=== PATIENT | male | born 1955 | race Caucasian/White ===

== ENCOUNTER → 2017-02-01 | Outpatient (CLI) | payer MEDICARE ==
[~2017-02-01] MED LIST: ALDA50TA2 PO; DESI40OI2 TOPICAL; FERR325C PO; FERR325T PO; FURO20TA PO; LACT10SO PO; LACT10SO5 PO; MAGN400T3 PO; MIDO5TAB PO; MIRA0.25 PO; MIRA0.5T PO; NICO21DI2 T-DERMAL; OXYC1CAP PO; OYST250T4 PO; PANT40TA3 PO; POTA-243 PO; PROP10TA6 PO; WHEEMIS3; XIFA550T4 PO; ZOLO100T PO
[2017-02-01 10:03] LABS: AUTOMATED NEUTROPHIL # 2.6 TH/MM3 (1.8-7.7); BASOPHIL % 0.7 % (0.0-2.0); EOSINOPHIL # 0.1 TH/MM3 (0-0.4); EOSINOPHIL % 3.6 % (0.0-4.0); HEMATOCRIT 32.2 % (39.0-51.0); LYMPH % 14.4 % (9.0-44.0); LYMPHOCYTE # 0.5 TH/MM3 (1.0-4.8); MEAN CELL VOLUME 101.8 FL (80.0-100.0); MEAN CORPUSCULAR HEMOGLOBIN 34.9 PG (27.0-34.0); MEAN CORPUSCULAR HGB CONC 34.3 % (32.0-36.0); MONO % 6.3 % (0.0-8.0); PLATELET COUNT 80 TH/MM3 (150-450); RED BLOOD COUNT 3.16 MIL/MM3 (4.50-5.90); WHITE BLOOD COUNT 3.5 TH/MM3 (4.0-11.0)
[2017-02-01 10:08] LABS: HEMO FLAGS AUTO DIFF
[2017-02-01 10:12] LABS: BLOOD, URINE NEG (NEG); GLUCOSE,URINE NEG (NEG); KETONE, URINE NEG (NEG); NITRITE,URINE NEG (NEG); PH, URINE 5.5 (5.0-8.5); URINE COLOR YELLOW (YELLW/STRAW)
[2017-02-01 10:13] LABS: INTERNATIONAL NORMALIZED RATIO 1.1 RATIO; PROTHROMBIN TIME - PATIENT 11.7 SEC (9.8-11.6)
[2017-02-01 10:19] LABS: COMMENT (UR) CULT NOT INDICATED; CULTURE IF INDICATED CULT NOT INDICATED
[2017-02-01 10:29] LABS: WESTERGREN SEDIMENTATION RATE 24 mm/hr (0-20)
[2017-02-01 10:41] LABS: OVALOCYTES 2+ (NORMAL); PLATELET ESTIMATE SMEAR LOW (NORMAL); PLATELET MORPHOLOGY NORMAL (NORMAL); SCAN/DIFF AUTO DIFF CONFIRMED; TEARDROP RBCS 1+ (NORMAL)
[2017-02-01 11:28] LABS: ALT (GPT) 24 U/L (12-78); ANION GAP 9 MEQ/L (5-15); AST (GOT) 25 U/L (15-37); BICARBONATE 23.3 MEQ/L (21.0-32.0); BLOOD UREA NITROGEN 26 MG/DL (7-18); CHLORIDE 110 MEQ/L (98-107); GLOMERULAR FILTRATION RATE 50 ML/MIN (>89); GLUCOSE,FASTING 128 MG/DL (74-99); POTASSIUM 4.3 MEQ/L (3.5-5.1); SODIUM (NA) 142 MEQ/L (136-145)
[2017-02-01 11:30] LABS: ALKALINE PHOSPHATASE 74 U/L (45-117); TOTAL BILIRUBIN ADULT 1.1 MG/DL (0.2-1.0)
--- NOTE | 2017-02-01 11:40 | RADRPT ---
EXAM DATE/TIME: 02/01/2017 11:27 [facility] COMPARISON: CHEST PA & LAT, July 09, 2016, 15:50. INDICATIONS : Evaluate for pneumonia, pneumothorax, or communicable disease. Pre op for surgery on 02/17/2017. MEDICAL HISTORY : Hypertension. SURGICAL HISTORY : Spinal stimulator. ENCOUNTER: Initial ACUITY: 1 day PAIN SCORE: 0/10 LOCATION: Bilateral chest FINDINGS: PA and lateral views of the chest demonstrate the lungs to be symmetrically aerated without evidence of mass, infiltrate or effusion. The cardiomediastinal contours are unremarkable. Osseous structure s are intact. CONCLUSION: Normal examination. Epidural stimulator is in good position. Previous lumbar fixation. aMo Bowie MD on February 01, 2017 at 11:38 Board Certified Radiologist. This report was verified electronically.
--- NOTE | 2017-02-01 19:27 | EKG ---
Date Performed: 02/01/2017 Time Performed: 09:12:50 PTAGE: 61 years EKG: Sinus rhythm NORMAL ECG NO PREVIOUS TRACING DOCTOR: Vish Downey Interpretating Date/Time 02/01/2017 19:24:16
== END ==
LOC: CPRE 08:46
PROVIDERS: ATTEND Orthopaedic Surgery
DX: Z01.810 Encounter for preprocedural cardiovascular examination (principal); M79.609 Pain in unspecified limb; M25.50 Pain in unspecified joint; Z01.818 Encounter for other preprocedural examination; Z01.812 Encounter for preprocedural laboratory examination
CPT/HCPCS: 36415; 71020; 80053; 81001; 85025; 85610; 85652; 85730; 93005

== ENCOUNTER → 2017-06-04 | Outpatient (CLI) | payer MEDICARE ==
[~2017-06-04] MED LIST changes: -DESI40OI2 TOPICAL; -FERR325T PO; +FERR325T18 PO; -LACT10SO PO; -MIDO5TAB PO; -MIRA0.25 PO; -NICO21DI2 T-DERMAL; -POTA-243 PO; -WHEEMIS3; -XIFA550T4 PO
[2017-06-04 09:42] LABS: AUTOMATED NEUTROPHIL # 2.7 TH/MM3 (1.8-7.7); BASOPHIL % 0.8 % (0.0-2.0); EOSINOPHIL % 1.3 % (0.0-4.0); HEMATOCRIT 31.3 % (39.0-51.0); LYMPH % 11.2 % (9.0-44.0); LYMPHOCYTE # 0.4 TH/MM3 (1.0-4.8); MEAN CELL VOLUME 103.8 FL (80.0-100.0); MEAN CORPUSCULAR HEMOGLOBIN 35.8 PG (27.0-34.0); MEAN CORPUSCULAR HGB CONC 34.5 % (32.0-36.0); NEUT % 79.7 % (16.0-70.0); PLATELET COUNT 78 TH/MM3 (150-450); RED BLOOD COUNT 3.02 MIL/MM3 (4.50-5.90); RED CELL DISTRIBUTION WIDTH 14.4 % (11.6-17.2); WHITE BLOOD COUNT 3.4 TH/MM3 (4.0-11.0)
[2017-06-04 09:50] LABS: INTERNATIONAL NORMALIZED RATIO 1.1 RATIO; PROTHROMBIN TIME - PATIENT 11.9 SEC (9.8-11.6)
[2017-06-04 09:58] LABS: HEMO FLAGS AUTO DIFF
[2017-06-04 10:10] LABS: ANION GAP 6 MEQ/L (5-15); AST (GOT) 33 U/L (15-37); BICARBONATE 26.9 MEQ/L (21.0-32.0); BLOOD UREA NITROGEN 28 MG/DL (7-18); CHLORIDE 108 MEQ/L (98-107); GLOMERULAR FILTRATION RATE 56 ML/MIN (>89); GLUCOSE,FASTING 142 MG/DL (74-99); POTASSIUM 3.9 MEQ/L (3.5-5.1); SODIUM (NA) 141 MEQ/L (136-145)
[2017-06-04 10:11] LABS: ALT (GPT) 28 U/L (12-78)
[2017-06-04 10:13] LABS: ALKALINE PHOSPHATASE 80 U/L (45-117); TOTAL BILIRUBIN ADULT 1.1 MG/DL (0.2-1.0)
--- NOTE | 2017-06-04 10:14 | RADRPT ---
EXAM DATE/TIME: 06/04/2017 09:57 [facility] COMPARISON: CHEST PA & LAT, February 01, 2017, 11:27. INDICATIONS : Evaluate for pneumonia, pneumothorax and communicable disease pre op for total knee surgery. MEDICAL HISTORY : Hypertension. SURGICAL HISTORY : Spinal stimulator. ENCOUNTER: Initial ACUITY: 1 day PAIN SCORE: 0/10 LOCATION: Bilateral chest FINDINGS: The heart is normal in size. There mild chronic interstitial changes within the pulmonary parenchyma. The lungs are otherwise clear. The appearance of the parenchyma similar to previous exam. Note is made of degenerative changes in the thoracic spine a spinal stimulator. CONCLUSION: 1. Postsurgical changes in the spine. 2. Mild COPD changes. Edward Zaman MD on June 04, 2017 at 10:11 Board Certified Radiologist. This report was verified electronically.
[2017-06-04 10:19] LABS: BLOOD, URINE NEG (NEG); GLUCOSE,URINE NEG (NEG); KETONE, URINE NEG (NEG); NITRITE,URINE NEG (NEG); PH, URINE 6.5 (5.0-8.5); URINE COLOR YELLOW (YELLW/STRAW)
[2017-06-04 10:28] LABS: PLATELET ESTIMATE SMEAR LOW (NORMAL); PLATELET MORPHOLOGY NORMAL (NORMAL); SCAN/DIFF AUTO DIFF CONFIRMED
[2017-06-04 10:29] LABS: WESTERGREN SEDIMENTATION RATE 16 mm/hr (0-20)
[2017-06-04 10:35] LABS: BACTERIA, URINE OCC /hpf; COMMENT (UR) CULT NOT INDICATED; CULTURE IF INDICATED CULT NOT INDICATED; RBC, URINE 0-1 /hpf (0-3); SQUAMOUS EPITHELIAL CELL URINE 0-5 /hpf (0-5); WBC, URINE 0-2 /hpf (0-5)
--- NOTE | 2017-06-04 15:46 | EKG ---
Date Performed: 06/04/2017 Time Performed: 09:21:01 PTAGE: 61 years EKG: SINUS BRADYCARDIA BORDERLINE ECG Since PREVIOUS TRACING , no significant change noted PREVIOUS TRACIN02/01/2017 09.12 DOCTOR: Alexis Velasco Interpretating Date/Time 06/04/2017 15:45:06
== END ==
LOC: CPRE 08:54
PROVIDERS: ATTEND Orthopaedic Surgery
DX: Z01.810 Encounter for preprocedural cardiovascular examination (principal); Z01.811 Encounter for preprocedural respiratory examination; Z01.812 Encounter for preprocedural laboratory examination; Z96.60 Presence of unspecified orthopedic joint implant; M17.12 Unilateral primary osteoarthritis, left knee; M79.609 Pain in unspecified limb; M25.50 Pain in unspecified joint; R94.31 Abnormal electrocardiogram [ECG] [EKG]
CPT/HCPCS: 36415; 71020; 80053; 81001; 85025; 85610; 85652; 85730; 93005

== ENCOUNTER → 2017-06-22 | Outpatient (CLI) | payer MEDICARE ==
[~2017-06-22] MED LIST changes: -ALDA50TA2 PO; +ASPI-146 PO; +COMMODE 3-IN-11 MIS; +CPMMACHINE; +ENOX40IN SQ; -FERR325C PO; +HYDR-3583 PO; +WALKER WHEELS/F1 MIS
== END ==
LOC: CPRE 11:14
PROVIDERS: ATTEND Orthopaedic Surgery
DX: Z01.812 Encounter for preprocedural laboratory examination (principal); D69.1 Qualitative platelet defects; M17.12 Unilateral primary osteoarthritis, left knee; D61.818 Other pancytopenia
CPT/HCPCS: 36415; 86850; 86900; 86901

== ENCOUNTER 2017-06-23 06:45 | Inpatient (IN) | payer MEDICARE ==
[~2017-06-23] VITALS: Ht 188 cm; Wt 81.7 kg
[~2017-06-23 06:45] MED LIST changes: -ASPI-146 PO; -COMMODE 3-IN-11 MIS; -CPMMACHINE; -ENOX40IN SQ; -HYDR-3583 PO; -WALKER WHEELS/F1 MIS
[2017-06-23] MEDS ORDERED: METOPROLOL TARTRATE 25 MG TAB PO PRN (07:45)
[2017-06-23] MEDS ORDERED: VANCOMYCIN 1000 MG/NS 250 ML (for <70 kg) IV SCH ×2 (07:45)
[2017-06-23] MEDS ORDERED: CHLORHEXIDINE GLUCONATE 2 % 1 PACK (2 CLOTHS) TOPICAL PRN (07:45)
[2017-06-23] MEDS ORDERED: POVIDONE IODINE 7.5% SCRUB 118 ML BOTTLE TOPICAL SCH (07:45)
[2017-06-23] MEDS ORDERED: SODIUM CHLORID 0.9% 500 ML IV PRN (07:45)
[2017-06-23] MEDS ORDERED: ceFAZolin 2 GM PREMIX 50 ML IV SCH (07:45)
[2017-06-23] MEDS ORDERED: POVIDONE IODINE 5% (ANTISEPSIS KIT) 4 APPLICATIONS EACH NARE PRN (07:45)
[2017-06-23] MEDS ORDERED: LACTATED RINGER'S 1000 ML IV PRN (07:45)
[2017-06-23] MEDS ORDERED: DEXAMETHASONE SOD PHOS 20 MG/5 ML VIAL IV SCH (08:00)
[2017-06-23] MEDS ORDERED: ZOLO100T PO (08:58)
[2017-06-23] MEDS ORDERED: TRANEXAMIC ACID IV SCH ×2 (09:00→14:00)
[2017-06-23] MEDS ORDERED: ROPIVACAINE PERI-ARTICULAR INJECTION. P-ARTICULR SCH ×5 (09:00)
[2017-06-23] MEDS ORDERED: SODIUM CHLORIDE 0.9% IV SCH ×2 (09:00→14:00)
[2017-06-23 09:53] VITALS: BP 119/74; PULSE 72; RESP 18; TEMP 98.3; O2SAT 100
[2017-06-23 10:12] VITALS: BP 117/69; PULSE 70; RESP 18; TEMP 98.6; O2SAT 99
[2017-06-23 10:40] VITALS: BP 118/71; PULSE 77; RESP 18; TEMP 98.7; O2SAT 100
[2017-06-23] MEDS ORDERED: BUPIVACAINE LIPOSOME PF 1.3% 20 ML VIAL ONE (11:03)
[2017-06-23] MEDS ORDERED: GENTAMICIN SULFATE 80 MG/2 ML VIAL ONE (11:38)
--- NOTE | 2017-06-23 12:36 | HHI.DCPOC ---
Discharge Care Plan Diagnosis: (1) Primary localized osteoarthrosis, lower leg (2) Status post total knee replacement, left Your Health Problems Are: Difficulty with ADL Goals to Promote Your Health * To prevent worsening of your condition and complications * To maintain your health at the optimal level Directions to Meet Your Goals Take your medications as prescribed Follow your dietary instruction Follow activity as directed Keep your appointments as scheduled Take your immunizations and boosters as scheduled If your symptoms worsen call your PCP, if no PCP go to Urgent Care Center or Emergency Room Smoking is Dangerous to Your Health. Avoid second hand smoke Call the 24-hour hour crisis hotline for domestic abuse at Edward Salinas Jun 23, 2017 12:36
--- NOTE | 2017-06-23 12:37 | HHI.FF ---
Face to Face Verification Diagnosis: (1) Primary localized osteoarthrosis, lower leg (2) Status post total knee replacement, left Physical Therapy Gait training, Transfer training, bed to chair Knee: Total knee Left LE Weight Bearing: WB as tolerated Left LE Range of Motion: Active ROM Nursing Nursing: Duane ng Dressing Changes: Do not change dressing Additional Instructions First dressing change in office I have seen patient Reginald Parra on 06/23/17. My clinical findings support the need for the requested home health care services because: Limited ability to care for self High risk of falls I certify that my clinical findings support that this patient is homebound because: Post-op weakness Unsteady gait/balance Edward Salinas Jun 23, 2017 12:37
[2017-06-23] MEDS ORDERED: WALKER WHEELS/F1 MIS (12:39)
[2017-06-23] MEDS ORDERED: COMMODE 3-IN-11 MIS (12:39)
[2017-06-23] MEDS ORDERED: CPMMACHINE (12:39)
[2017-06-23] MEDS ORDERED: ENOX40IN SQ ×2 (13:56→14:00)
[2017-06-23] MEDS ORDERED: HYDR-3583 PO (13:56)
[2017-06-23] MEDS ORDERED: ASPI-146 PO (13:56)
--- NOTE | 2017-06-23 13:58 | PD.OP ---
cc: Aleksey Duarte MD Operative Report Date of Surgery: Jun 23, 2017 Preoperative Diagnosis: Left knee severe osteoarthritis Postoperative Diagnosis: Same Procedure: Left total knee arthroplasty Anesthesia: Adductor canal block and general Surgeon: Aleksey Duarte Protective Signal Operator(s): ARIANA Sánchez The surgical procedure was assisted by my Advanced Registered Nurse Practitioner. My DIRECTOR NEW PRODUCT presence was necessary throughout this case for the manipulation and positioning of the surgical extremity. My DIRECTOR NEW PRODUCT was assisting me throughout the duration of this procedure. The skill set of an Advance Registered Nurse Practitioner was medically necessary to complete this procedure. During the surgical case, the surgical scrub tech was working at the back table and the Advance Registered Nurse Practitioner was directly assisting me. Operation and Findings: IMPLANTS: DePuy Attune: Patella: size 38. Femur, posterior stabilized size 7. Tibia, rotating platform size 7. Tibial insert, rotating platform, posterior stabilized size 5 mm thickness. ESTIMATED BLOOD LOSS: 150 cc TOURNIQUET TIME: 37 minutes at 250 mmHg pressure. JUSTIFICATION FOR PROCEDURE: The patient has end-stage osteoarthritis to the knee. There is an attached conservative measures pathway form in the chart that describes the nonoperative measures that were undertaken prior to consideration of surgical management. The patient understood the risks and benefits of surgical management. See my office notes for further details PROCEDURE: This patient was transfused 1 unit of platelets prior to surgery. This was done per preoperative decision making. See the office notes for details. The patient was brought back to the operative theatre. Adequate anesthesia was obtained. The patient received intravenous vancomycin and Ancef. The lower extremity was prepped and draped in the usual sterile fashion.The leg was exsanguinated, the tourniquet was raised. A standard anterior incision was performed followed by medial parapatellar arthrotomy was performed. End-stage arthritis was identified. Osteotomy of the patella was performed. We drilled holes for the patella. We trialed the patella component. We placed an intramedullary guide into the distal femur. We ultimately resected 12 mm off of the distal femur in 5 degrees of valgus. The remnants of the ACL and PCL were resected. Osteotomy of the proximal tibia was performed, resecting 5 mm off of the medial side. This was done with 3 degrees of posterior slope using an extramedullary guide. The distal end of the guide was placed in the mid aspect of the ankle. The femur was sized, and four chamfer cuts were completed in 3 of external rotation. We then cut the central box in the distal femur to replace the PCL. We resected the remnants of the menisci and removed osteophytes off of the femur and tibia. We then trialed the knee. We punched the tibia for the keel, and then used standard technique to cement in components. Excess cement was removed. We trialed the knee again and the final polyethylene thickness was chosen to provide extension to 0 degrees, and flexion of 140 degrees to gravity. The ligaments were appropriately balanced. Lateral release was necessary to obtain excellent patellofemoral tracking. The tourniquet was released and adequate hemostasis was obtained. An intra- articular injection of a ropivacaine cocktail was injected. The posterior knee was inspected for excess cement, which was removed. The final polyethylene was put into position after thorough irrigation. We then closed deep fascia with a #2 Stratafix followed by skin with 2-0 Vicryl followed by gallito. Postop plan is to weight-bear as tolerated. DVT prophylaxis will be performed with SCDs, NAYAN duran, early mobilization, and Lovenox for 3 weeks. Aleksey Duarte MD Jun 23, 2017 13:58
[2017-06-23] MEDS ORDERED: ZOLPIDEM TARTRATE 5 MG TAB PO PRN (14:00)
[2017-06-23] MEDS ORDERED: Post-op Orders (for Pharmacy) MISC XX ONE (14:00)
[2017-06-23] MEDS ORDERED: ALUMINUM/MAGNESIUM/SIMETH 30 ML CUP PO PRN (14:00)
[2017-06-23] MEDS ORDERED: PRAMIPEXOLE DIHYDROCHLORIDE 0.25 MG TAB PO PRN (14:00)
[2017-06-23] MEDS ORDERED: ONDANSETRON HCL 4 MG/2 ML VIAL IVP PRN (14:00)
[2017-06-23] MEDS ORDERED: NALOXONE HCL 0.4 MG/ML AMP IV PUSH PRN (14:00)
[2017-06-23] MEDS ORDERED: MORPHINE SULFATE 4 MG/ML INJ IV PUSH PRN (14:00)
[2017-06-23] MEDS ORDERED: BISACODYL 10 MG SUPP RECTAL PRN (14:00)
[2017-06-23] MEDS ORDERED: diphenhydrAMINE HCL 50 MG/ML VIAL IV PUSH PRN (14:00)
[2017-06-23] MEDS ORDERED: ACETAMINOPHEN/HYDROcodone 325 MG/10 MG TAB PO PRN (14:00)
[2017-06-23] MEDS ORDERED: MAGNESIUM HYDROXIDE SUSP 30 ML CUP PO PRN (14:00)
[2017-06-23] MEDS ORDERED: DO NOT ADM ANY ANTICOAGULANT DRUGS PRN (14:24)
[2017-06-23] MEDS ORDERED: LACTULOSE SYRUP 20 GM/30 ML CUP PO PRN (14:45)
[2017-06-23] MEDS ORDERED: *morphine SULFATE 8 MG/ML PERIprocedure ONLY ONE (15:26)
[2017-06-23] MEDS: SODIUM CHLOR 0.9% 1000 ML INJ 1,000 ML IV SCH (15:45)
--- NOTE | 2017-06-23 16:24 | RADRPT ---
EXAM DATE/TIME: 06/23/2017 15:12 [facility] COMPARISON: No previous studies available for comparison. INDICATIONS : Post op left total knee surgery. MEDICAL HISTORY : None. SURGICAL HISTORY : None. ENCOUNTER: Initial ACUITY: 1 day PAIN SCORE: 0/10 LOCATION: Left knee. FINDINGS: Two view examination of the left knee demonstrates right total knee arthroplasty. All 3 components ar e appropriately positioned. No fracture. CONCLUSION: Appropriate postoperative appearance of the left knee status post total arthroplasty. Jose G Ge MD on June 23, 2017 at 16:22 Board Certified Radiologist. This report was verified electronically.
[2017-06-23 16:49] VITALS: BP 109/61; PULSE 63; RESP 18; TEMP 96.3; O2SAT 100
--- NOTE | 2017-06-23 16:49 | PD.CONS ---
[facility] By [facility] Du[facility] Reason for Consult medical management Primary Care Physician Prabhakar Ashley M.D. 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 He underwent APC (argon plasma coagulation) intervention by Dr Major. This was complicated by respiratory failure requiring mechanical vent. He was also found to have aspiration pneumonia for which he has completed antibiotics. Echo showed EF of 50-55% with normal systolic function but with some diastolic dysfunction. Underwent paracentesis on 06/26/16 with 1.8 L drained. Patient was in inpatient rehab as well. Patient is here for left hip surgery by Dr Duarte. 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 Jose G Ge MD Family History Father secondary to chronic kidney disease and lung disease Social History Reports quit smoking proximally 3 years ago prior to that smoked one half pack per day Reports he quit drinking approximately 3 years ago Physical Exam Vital Signs Vital Signs Date Time Temp Pulse Resp B/P (MAP) Pulse Ox O2 Delivery O2 Flow Rate FiO2 06/23/17 16:19 97.6 62 17 102/59 (73) 100 Nasal Cannula 2 06/23/17 16:00 59 18 100/58 (72) 100 Nasal Cannula 2 06/23/17 15:30 55 20 106/55 (72) 100 Nasal Cannula 2 06/23/17 15:15 65 19 112/63 (79) 96 Nasal Cannula 2 06/23/17 15:00 64 17 108/58 (75) 99 Nasal Cannula 2 06/23/17 14:45 60 16 99/55 (70) 100 Nasal Cannula 2 06/23/17 14:30 60 14 108/56 (73) 100 Nasal Cannula 2 06/23/17 14:24 98.5 65 19 121/57 (78) 99 Nasal Cannula 2 06/23/17 10:40 98.7 77 18 118/71 100 06/23/17 10:12 98.6 70 18 117/69 99 06/23/17 09:53 98.3 72 18 119/74 100 06/23/17 09:00 98.8 69 18 96/58 (71) 99 Physical Exam GENERAL: This is a well-nourished, well-developed patient, in no apparent distress. SKIN: No rashes, ecchymoses or lesions. Cool and dry. HEAD: Atraumatic. Normocephalic. No temporal or scalp tenderness. EYES: Pupils equal round and reactive. Extraocular motions intact. No scleral icterus. No injection or drainage. ENT: Nose without bleeding, purulent drainage or septal hematoma. Throat without erythema, tonsillar hypertrophy or exudate. Uvula midline. Airway patent. NECK: Trachea midline. No JVD or lymphadenopathy. Supple, nontender, no meningeal signs. CARDIOVASCULAR: Regular rate and rhythm without murmurs, gallops, or rubs. RESPIRATORY: Clear to auscultation. Breath sounds equal bilaterally. No wheezes , rales, or rhonchi. GASTROINTESTINAL: Abdomen soft, non-tender, nondistended. No hepato-splenomegaly , or palpable masses. No guarding. MUSCULOSKELETAL: S/P left knee surgery, dressing c/d/i. No edema noted. No calf tenderness. Negative Homans sign bilaterally. NEUROLOGICAL: Awake and alert. Cranial nerves II through XII intact. Motor and sensory grossly within normal limits. Five out of 5 muscle strength in all muscle groups. Normal speech. Imaging Last Impressions Knee X-Ray 06/23/17 [id number] Signed Impressions: Service Date/Time: Friday, June 23, 2017 15:12 - CONCLUSION: Appropriate postoperative appearance of the left knee status post total arthroplasty. Jose G Ge MD Assessment and Plan Assessment and Plan 60-year-old male patient recently hospitalized from 06/10/2016 to 07/02/2016 for hospital department secondary to GI bleed EGD revealed GAVE (gastric antral vascular ectasia). He underwent APC (argon plasma coagulation) intervention by Dr Major. complicated by respiratory failure requiring mechanical ventilation aspiration pneumonia completed antibiotics. We have been consulted for assistance with medical management of cirrhosis as well as multiple comorbidities. 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 He underwent APC (argon plasma coagulation) intervention by Dr Major. patient is here s/p left hip surgery by Dr Duarte Left knee osteoarthritis s/p left knee surgery by Dr Duarte. Continue management per surgeon Antiemetics as need, laxatives and stool softeners as need. Her H&H especially patient is with history of anemia Cirrhosis with portal hypertension- chronic Continue home meds Spirolactone and 50 mg daily in addition to Lasix 20 mg daily. Monitor kidney function closely Continue lactulose per patient takes lactulose 45 mls bid scheduled Monitor Chronic back pain- Continue meds Depression - Continue Sertraline Anemia monitor H/H appears stable at this time. DVT prophylaxis ambulation per surgeon, however patient is at high risk of bleeding Thank you for this consultation we'll follow along Discussed Condition With patient, nurse, family at bedside Problem Qualifiers (1) Primary localized osteoarthrosis, lower leg: Qualified Codes: M17.12 - Unilateral primary osteoarthritis, left knee Xiao Bates MD Jun 23, 2017 16:48
[2017-06-23] MEDS: FERROUS SULFATE 325 MG (65 MG ELEMENTAL IRON) TAB PO SCH (18:00)
[2017-06-23] MEDS: ACETAMINOPHEN/HYDROcodone 325 MG/10 MG TAB PO PRN (19:02)
[2017-06-23] MEDS: PROPRANOLOL HCL 10 MG TAB PO SCH (21:00)
[2017-06-23 21:51] VITALS: BP 97/51; PULSE 67; RESP 16; TEMP 98.2; O2SAT 100
[2017-06-24] VITALS (11 sets, daily range): BP systolic 95–133; BP diastolic 45–71; PULSE 59–96; RESP 17–20; TEMP 96–97.9; O2SAT 97–100
[2017-06-24] MEDS: LACTULOSE SYRUP 20 GM/30 ML CUP PO SCH ×3 (00:37→23:06)
[2017-06-24] MEDS: SODIUM CHLOR 0.9% 1000 ML INJ 1,000 ML IV SCH ×2 (00:46→19:52)
[2017-06-24] MEDS: ACETAMINOPHEN/HYDROcodone 325 MG/10 MG TAB PO PRN ×4 (03:36→23:06)
[2017-06-24] MEDS ORDERED: DEXAMETHASONE SOD PHOS 20 MG/5 ML VIAL IV ONE (07:45)
[2017-06-24] MEDS: PROPRANOLOL HCL 10 MG TAB PO SCH ×2 (09:00→23:06)
[2017-06-24] MEDS: FUROSEMIDE 20 MG TAB PO SCH (09:00)
[2017-06-24] MEDS: FERROUS SULFATE 325 MG (65 MG ELEMENTAL IRON) TAB PO SCH ×2 (09:07→16:11)
[2017-06-24] MEDS: SERTRALINE HCL 100 MG TAB PO SCH (09:08)
[2017-06-24] MEDS: PANTOPRAZOLE SOD 40 MG DELAYED RELEASE TAB PO SCH (09:08)
[2017-06-24 09:45] LABS: MEAN CELL VOLUME 102.7 FL (80.0-100.0); MEAN CORPUSCULAR HEMOGLOBIN 35.6 PG (27.0-34.0); MEAN CORPUSCULAR HGB CONC 34.7 % (32.0-36.0); PLATELET COUNT 73 TH/MM3 (150-450); RED BLOOD COUNT 1.91 MIL/MM3 (4.50-5.90); RED CELL DISTRIBUTION WIDTH 14.6 % (11.6-17.2); WHITE BLOOD COUNT 3.4 TH/MM3 (4.0-11.0)
[2017-06-24 09:59] LABS: REVIEW FLAG FINAL
[2017-06-24 10:00] LABS: HEMATOCRIT 19.6 % (39.0-51.0)
[2017-06-24] MEDS ORDERED: PNEUMOCOCCAL POLYVALENT INJ 25 MCG/0.5 ML SYR IM ONE (10:00)
--- NOTE | 2017-06-24 10:41 | HHI.PR ---
Subjective Remarks With postsurgical anemia . However patient not in distress his chair at this time. No overt bleeding. Denies any chest pain or shortness of breath, lightheadedness, palpitations however he feels very tired is alert and oriented. Family at bedside. Objective Vitals Vital Signs Date Time Temp Pulse Resp B/P (MAP) Pulse Ox O2 Delivery O2 Flow Rate FiO2 06/24/17 08:00 96.0 60 18 95/59 (71) 99 06/24/17 04:00 97.2 63 20 110/66 (81) 100 06/23/17 21:51 98.2 67 16 97/51 (66) 100 06/23/17 20:02 18 06/23/17 16:49 96.3 63 18 109/61 (77) 100 06/23/17 16:19 97.6 62 17 102/59 (73) 100 Nasal Cannula 2 06/23/17 16:00 59 18 100/58 (72) 100 Nasal Cannula 2 06/23/17 15:30 55 20 106/55 (72) 100 Nasal Cannula 2 06/23/17 15:15 65 19 112/63 (79) 96 Nasal Cannula 2 06/23/17 15:00 64 17 108/58 (75) 99 Nasal Cannula 2 06/23/17 14:45 60 16 99/55 (70) 100 Nasal Cannula 2 06/23/17 14:30 60 14 108/56 (73) 100 Nasal Cannula 2 06/23/17 14:24 98.5 65 19 121/57 (78) 99 Nasal Cannula 2 06/23/17 10:40 98.7 77 18 118/71 100 I/O 06/23/17 06/23/17 06/23/17 06/24/17 06/24/17 06/24/17 07:00 15:00 23:00 07:00 15:00 23:00 Intake Total 1374 ml 273 ml 400 ml 100 ml Output Total 150 ml 600 ml Balance 1224 ml 273 ml -200 ml 100 ml Intake Oral 300 ml IV Total 273 ml 100 ml 100 ml Platelets 374 ml Other 1000 ml Output Urine Total 600 ml Estimated Blood Loss 150 ml # Bowel Movements 0 Result Diagram: 06/24/17 0818 Imaging Last Impressions Knee X-Ray 06/23/17 1592 Signed Impressions: Service Date/Time: Friday, June 23, 2017 15:12 - CONCLUSION: Appropriate postoperative appearance of the left knee status post total arthroplasty. Jose G Ge MD Objective Remarks GENERAL: This is a well-nourished, well-developed patient, in no apparent distress. SKIN: No rashes, ecchymoses or lesions. Cool and dry. HEAD: Atraumatic. Normocephalic. No temporal or scalp tenderness. EYES: Pupils equal round and reactive. Extraocular motions intact. No scleral icterus. No injection or drainage. ENT: Nose without bleeding, purulent drainage or septal hematoma. Throat without erythema, tonsillar hypertrophy or exudate. Uvula midline. Airway patent. NECK: Trachea midline. No JVD or lymphadenopathy. Supple, nontender, no meningeal signs. CARDIOVASCULAR: Regular rate and rhythm without murmurs, gallops, or rubs. RESPIRATORY: Clear to auscultation. Breath sounds equal bilaterally. No wheezes , rales, or rhonchi. GASTROINTESTINAL: Abdomen soft, non-tender, nondistended. No hepato-splenomegaly , or palpable masses. No guarding. MUSCULOSKELETAL: S/P left knee surgery, dressing c/d/i. No edema noted. No calf tenderness. Negative Homans sign bilaterally. NEUROLOGICAL: Awake and alert. Cranial nerves II through XII intact. Motor and sensory grossly within normal limits. Five out of 5 muscle strength in all muscle groups. Normal speech. A/P Problem List: (1) Status post total knee replacement, left ICD Code: Z96.652 - Presence of left artificial knee joint (2) Primary localized osteoarthrosis, lower leg ICD Code: M17.10 - Unilateral primary osteoarthritis, unspecified knee (3) HTN (hypertension) ICD Code: I10 - Essential (primary) hypertension Status: Chronic (4) Thrombocytopenia ICD Code: D69.6 - Thrombocytopenia, unspecified Status: Acute (5) Restless leg syndrome ICD Code: G25.81 - Restless legs syndrome Status: Chronic (6) Liver cirrhosis ICD Code: K74.60 - Unspecified cirrhosis of liver Status: Chronic (7) Depression ICD Code: F32.9 - Major depressive disorder, single episode, unspecified Status: Chronic Assessment and Plan 60-year-old male patient recently hospitalized from 06/10/2016 to 07/02/2016 for hospital department secondary to GI bleed EGD revealed GAVE (gastric antral vascular ectasia). He underwent APC (argon plasma coagulation) intervention by Dr Major. complicated by respiratory failure requiring mechanical ventilation aspiration pneumonia completed antibiotics. We have been consulted for assistance with medical management of cirrhosis as well as multiple comorbidities. 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 He underwent APC (argon plasma coagulation) intervention by Dr Major. patient is here s/p left hip surgery by Dr Duarte Left knee osteoarthritis s/p left knee surgery by Dr Duarte. Continue management per surgeon Antiemetics as need, laxatives and stool softeners as need. Anemia with drop in HGB at 6.9 after surgery. Type and screen Transfuse 2U PRBC today. Pretreat. Received 1 U PLT as PLT at 70. Consult hematology oncology Thrombocytopenia. PLT 70. Monitor received 1U PLT. Cirrhosis with portal hypertension- chronic Continue home meds Spirolactone and 50 mg daily in addition to Lasix 20 mg daily. Monitor kidney function closely Continue lactulose per patient takes lactulose 45 mls bid scheduled Monitor Chronic back pain- Continue meds Depression - Continue Sertraline DVT prophylaxis ambulation per surgeon, however patient is at high risk of bleeding Thank you for this consultation we'll follow along Discussed Condition With patient, nurse, family at bedside Problem Qualifiers (1) Primary localized osteoarthrosis, lower leg: Qualified Codes: M17.12 - Unilateral primary osteoarthritis, left knee Xiao Bates MD Jun 24, 2017 10:41
[2017-06-24] MEDS ORDERED: ACETAMINOPHEN 325 MG TAB PO PRN (10:45)
[2017-06-24] MEDS ORDERED: diphenhydrAMINE HCL 25 MG CAP PO PRN (10:45)
[2017-06-24] MEDS ORDERED: FUROSEMIDE 20 MG/2 ML VIAL IV PUSH ONE (10:45)
[2017-06-24] MEDS ORDERED: SODIUM CHLOR 0.9% 250 ML INJ 250 ML IV ONE (10:45)
--- NOTE | 2017-06-24 12:34 | PD.ORT.PN ---
Subjective Post Op Day #: 1 Subjective Remarks Patient is OOB in chair with minimal pain to the left knee. Patient reports wanting to go home with home health today. Patient has been ambulatory. Objective Vitals Vital Signs Date Time Temp Pulse Resp B/P (MAP) Pulse Ox O2 Delivery O2 Flow Rate FiO2 06/24/17 08:00 96.0 60 18 95/59 (71) 99 06/24/17 04:00 97.2 63 20 110/66 (81) 100 06/23/17 21:51 98.2 67 16 97/51 (66) 100 06/23/17 20:02 18 06/23/17 16:49 96.3 63 18 109/61 (77) 100 06/23/17 16:19 97.6 62 17 102/59 (73) 100 Nasal Cannula 2 06/23/17 16:00 59 18 100/58 (72) 100 Nasal Cannula 2 06/23/17 15:30 55 20 106/55 (72) 100 Nasal Cannula 2 06/23/17 15:15 65 19 112/63 (79) 96 Nasal Cannula 2 06/23/17 15:00 64 17 108/58 (75) 99 Nasal Cannula 2 06/23/17 14:45 60 16 99/55 (70) 100 Nasal Cannula 2 06/23/17 14:30 60 14 108/56 (73) 100 Nasal Cannula 2 06/23/17 14:24 98.5 65 19 121/57 (78) 99 Nasal Cannula 2 I/O 06/23/17 06/23/17 06/23/17 06/24/17 06/24/17 06/24/17 07:00 15:00 23:00 07:00 15:00 23:00 Intake Total 1374 ml 273 ml 400 ml 100 ml Output Total 150 ml 600 ml Balance 1224 ml 273 ml -200 ml 100 ml Intake Oral 300 ml IV Total 273 ml 100 ml 100 ml Platelets 374 ml Other 1000 ml Output Urine Total 600 ml Estimated Blood Loss 150 ml # Bowel Movements 0 Result Diagram: 06/24/17 0818 Imaging Last 24 hours Impressions Knee X-Ray 06/23/17 3442 Signed Impressions: Service Date/Time: Friday, June 23, 2017 15:12 - CONCLUSION: Appropriate postoperative appearance of the left knee status post total arthroplasty. Jose G Ge MD Procedures Left TKA Objective Remarks The patient's dressing is C/D/I. EHL/TA/G intact. 2+ pedal pulse. Calf is soft and nontender. + SILT. Assessment & Plan Ortho Post Op Day #: 1 Problem List: Assessment and Plan POD #1: Left TKA 1. Lovenox for 3 weeks for DVT prophylaxis 2. WBAT LLE 3. Ice to the left knee PRN 4. Stable for discharge home with home health today after transfusion of PRBCs to address anemia. 5. F/U with Dr. Duarte or Jose G LANE in the office as previously scheduled. 6. PRBCs ordered to address anemia. Edward Salinas Jun 24, 2017 12:34
[2017-06-24] MEDS: ENOXAPARIN SODIUM 40 MG/0.4 ML SYRINGE SQ SCH (13:20)
[2017-06-24] MEDS: MULTIVITAMINS/MINERALS THERAPEUTIC TAB PO SCH (23:07)
[2017-06-24] MEDS: DOCUSATE SODIUM 100 MG CAP PO SCH (23:07)
[2017-06-25] VITALS: BP 110/56; PULSE 78; RESP 18; TEMP 98.3; O2SAT 100
[2017-06-25] MEDS: SODIUM CHLOR 0.9% 1000 ML INJ 1,000 ML IV SCH (04:52)
[2017-06-25 08:00] VITALS: BP 109/58; PULSE 70; RESP 18; TEMP 97.3; O2SAT 98
--- NOTE | 2017-06-25 08:04 | MB ---
cc: IRENE JOHNS M.D. DATE OF CONSULTATION 06/25/[address] Bates REASON FOR CONSULTATION Hematology consult to render opinion regarding patient with pancytopenia. HISTORY OF PRESENT ILLNESS The patient is a 61-year-old male with a history of cirrhosis and splenomegaly with pancytopenia admitted for a left total knee arthroplasty. He has had a history of pancytopenia. His preop CBC showed a hemoglobin of 9.1 and his platelet count has been fluctuating between 70,000-90,000. He was given a unit of platelets prior to surgery. He had an uneventful surgery. ESTIMATED BLOOD LOSS 150 mL After surgery, the hemoglobin level was noted to be 6.8. He received two units of packed red blood cell transfusion yesterday. He denies any bleeding from his knee. He denies any chest pain or palpitation. He has no shortness of breath or cough. He denies any nausea or vomiting. Denies any abdominal pain. PAST MEDICAL HISTORY 1. Cirrhosis alcohol-induced 2. He has portal hypertension with a history of GI bleed. 3. Ascites 4. Splenomegaly 5. Depression 6. Hypertension 7. Chronic pain 8. Peripheral neuropathy 9. Restless leg syndrome 10. Cholelithiasis 11. Degenerative disk disease 12. GAVE with history of GI bleed. 13. History of aspiration pneumonia with respiratory failure. PAST SURGICAL HISTORY 1. Back surgery 2. Neck surgery 3. Upper endoscopy 4. Paracenteses June 2016. 5. Eyes surgery 6. Spinal stimulator implant. FAMILY HISTORY Father of chronic kidney disease. No hematology disorder in the family. SOCIAL HISTORY Quit tobacco three years ago. Used to smoke about one and a half packs a day for many years, quit alcohol about three years ago. ALLERGIES No known drug allergies. CURRENT MEDICATIONS 1. Multivitamin 2. Colace 3. Lovenox 4. Lasix 5. Protonix 6. Zoloft 7. Propranolol 8. Lactulose 9. Ferrous sulfate REVIEW OF SYSTEMS CONSTITUTION: Negative. EYES: Negative. ENT: Negative. CARDIOVASCULAR: Denies chest pressure or palpitations. RESPIRATORY: Denies shortness of breath or cough. GI: Denies any nausea or vomiting. Denies any melena or hematochezia. Denies abdominal pain. : No dysuria or hematuria. MUSCULOSKELETAL: As above. HEMATOLOGY: As above. ENDOCRINE: Negative. HEMATOLOGY: Negative. PSYCHIATRIC: Negative. NEUROLOGIC: Negative. PHYSICAL EXAMINATION VITAL SIGNS: Temperature 98.3, blood pressure 110/56, O2 saturation 100% on room air. GENERAL: He is alert and oriented x3 in no acute distress. He is in a good mood. HEENT: Atraumatic, normocephalic. Pupils equal, round and reactive to light. Extraocular muscles intact. No scleral icterus. Oropharynx, dry mucosa. No lesion, thrush or mucositis. NECK: No thyromegaly. No palpable masses. LYMPHATICS: No palpable cervical, clavicular, axillary or inguinal lymph nodes. CARDIOVASCULAR: Regular S1-S2. No murmur. LUNGS: Clear to auscultation bilaterally. No wheezing or rhonchi. ABDOMEN: Soft, nontender. I could not palpate the liver or spleen. EXTREMITIES: No cyanosis. No clubbing. Left lower extremity is in a brace, dressing is dry. Trace ankle edema. SKIN: No rash or petechiae. NEUROLOGIC: Exam nonfocal. LABORATORY DATA WBC 3.4, hemoglobin 6.8, platelet count 73,000 on June 24, 2017. ASSESSMENT 1. Pancytopenia due to underlying cirrhosis and splenomegaly. His previous ultrasound showed splenomegaly due to cirrhosis. He has baseline pancytopenia. His platelet count fluctuated between 70,000-90,000. His preop hemoglobin was 9.1. His white blood cell count was slightly low. He had a left total knee arthroplasty on June 23. Estimated blood loss 150 cc. After the surgery, hemoglobin was noted to be 6.8. He received two units of packed red blood cells yesterday. He denies any symptoms. Repeat CBC pending. He has no evidence of active bleeding at this time. He is also on an iron supplement which he will continue. Once his hemoglobin is above 8 he can be discharged from the hematology standpoint. He will follow up as an outpatient. 2. Cirrhosis due to alcohol. He has portal hypertension. He also has a history of ascites and splenomegaly. He has no symptoms at this time. 3. History of GI bleed. Upper endoscopy showed GAVE he had an Argon treatment four times, the last one about three months ago. He has no evidence of active GI bleed at this time. 4. Chronic back pain due degenerative disc disease. 5. Hypertension 6. Peripheral neuropathy RECOMMENDATIONS 1. Agree with blood transfusion to keep hemoglobin above 8. 2. If his hemoglobin is above 8, can be discharged from hematology standpoint if cleared by orthopedic surgery. 3. Continue prophylactic anticoagulation per orthopedic recommendation. Thank you Dr. Bates and Dr. Duarte for asking me to see this patient. MD TANIA Mortensen/BLAIRE /7:21 AM /7:45 AM MANI
[2017-06-25 08:27] LABS: HEMATOCRIT 23.5 % (39.0-51.0); MEAN CELL VOLUME 97.7 FL (80.0-100.0); MEAN CORPUSCULAR HEMOGLOBIN 33.5 PG (27.0-34.0); MEAN CORPUSCULAR HGB CONC 34.3 % (32.0-36.0); PLATELET COUNT 76 TH/MM3 (150-450); RED CELL DISTRIBUTION WIDTH 18.7 % (11.6-17.2); WHITE BLOOD COUNT 3.7 TH/MM3 (4.0-11.0)
[2017-06-25 08:38] LABS: REVIEW FLAG FINAL
[2017-06-25 08:54] LABS: BICARBONATE 24.9 MEQ/L (21.0-32.0); POTASSIUM 3.6 MEQ/L (3.5-5.1)
[2017-06-25] MEDS: FUROSEMIDE 20 MG TAB PO SCH (09:00)
[2017-06-25] MEDS: PROPRANOLOL HCL 10 MG TAB PO SCH (09:00)
--- NOTE | 2017-06-25 09:01 | HHI.PR ---
Subjective Remarks Feels better today . No chest pain , sob, n/v/d/c. No overt bleeding. Feels comfortable to go home. HGB is 8.1 stable after transfusion. Pain is controlled by meds. Objective Vitals Vital Signs Date Time Temp Pulse Resp B/P (MAP) Pulse Ox O2 Delivery O2 Flow Rate FiO2 06/25/17 00:24 17 06/25/17 00:00 98.3 78 18 110/56 (74) 100 06/24/17 23:44 Room Air 06/24/17 21:37 97.9 80 17 112/71 100 06/24/17 21:12 21 06/24/17 20:00 97.8 96 17 113/60 (77) 99 06/24/17 19:02 97.8 96 17 113/60 99 06/24/17 18:47 97.3 65 18 100/55 100 06/24/17 15:45 97.1 68 18 133/66 99 06/24/17 14:44 98 Nasal Cannula 2.00 06/24/17 13:04 96.9 59 18 111/54 98 06/24/17 12:45 96.9 65 18 98/45 97 06/24/17 12:00 96.9 65 18 98/45 (62) 98 I/O 06/24/17 06/24/17 06/24/17 06/25/17 06/25/17 06/25/17 07:00 15:00 23:00 07:00 15:00 23:00 Intake Total 400 ml 1065 ml 1885 ml 360 ml Output Total 600 ml 400 ml 700 ml Balance -200 ml 1065 ml 1485 ml -340 ml Intake Oral 300 ml 960 ml 720 ml 360 ml IV Total 100 ml 100 ml Packed Cells 1150 ml Blood Product IV Normal Saline Flush 5 ml 15 ml Output Urine Total 600 ml 400 ml 700 ml Stool Total 0 ml # Voids 4 # Bowel Movements 0 0 Result Diagram: 06/25/17 0807 06/25/17 08 Imaging Last Impressions Knee X-Ray 06/23/17 2162 Signed Impressions: Service Date/Time: Friday, June 23, 2017 15:12 - CONCLUSION: Appropriate postoperative appearance of the left knee status post total arthroplasty. Jose G Ge MD Objective Remarks GENERAL: This is a well-nourished, well-developed patient, in no apparent distress. SKIN: No rashes, ecchymoses or lesions. Cool and dry. HEAD: Atraumatic. Normocephalic. No temporal or scalp tenderness. EYES: Pupils equal round and reactive. Extraocular motions intact. No scleral icterus. No injection or drainage. ENT: Nose without bleeding, purulent drainage or septal hematoma. Throat without erythema, tonsillar hypertrophy or exudate. Uvula midline. Airway patent. NECK: Trachea midline. No JVD or lymphadenopathy. Supple, nontender, no meningeal signs. CARDIOVASCULAR: Regular rate and rhythm without murmurs, gallops, or rubs. RESPIRATORY: Clear to auscultation. Breath sounds equal bilaterally. No wheezes , rales, or rhonchi. GASTROINTESTINAL: Abdomen soft, non-tender, nondistended. No hepato-splenomegaly , or palpable masses. No guarding. MUSCULOSKELETAL: S/P left knee surgery, dressing c/d/i. No edema noted. No calf tenderness. Negative Homans sign bilaterally. NEUROLOGICAL: Awake and alert. Cranial nerves II through XII intact. Motor and sensory grossly within normal limits. Five out of 5 muscle strength in all muscle groups. Normal speech. A/P Problem List: (1) Status post total knee replacement, left ICD Code: Z96.652 - Presence of left artificial knee joint (2) Primary localized osteoarthrosis, lower leg ICD Code: M17.10 - Unilateral primary osteoarthritis, unspecified knee (3) HTN (hypertension) ICD Code: I10 - Essential (primary) hypertension Status: Chronic (4) Thrombocytopenia ICD Code: D69.6 - Thrombocytopenia, unspecified Status: Acute (5) Restless leg syndrome ICD Code: G25.81 - Restless legs syndrome Status: Chronic (6) Liver cirrhosis ICD Code: K74.60 - Unspecified cirrhosis of liver Status: Chronic (7) Depression ICD Code: F32.9 - Major depressive disorder, single episode, unspecified Status: Chronic Assessment and Plan 60-year-old male patient recently hospitalized from 06/10/2016 to 07/02/2016 for hospital department secondary to GI bleed EGD revealed GAVE (gastric antral vascular ectasia). He underwent APC (argon plasma coagulation) intervention by Dr Major. complicated by respiratory failure requiring mechanical ventilation aspiration pneumonia completed antibiotics. We have been consulted for assistance with medical management of cirrhosis as well as multiple comorbidities. 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 He underwent APC (argon plasma coagulation) intervention by Dr Major. patient is here s/p left hip surgery by Dr Duarte Left knee osteoarthritis s/p left knee surgery by Dr Duarte. Continue management per surgeon Antiemetics as need, laxatives and stool softeners as need. Anemia with drop in HGB at 6.9 after surgery. Type and screen Transfuse 2U PRBC today. Pretreated. Received 1 U PLT as PLT at 70. Repeat HGB after blood transfusion stable at 8.1. Consult hematology oncology, appreciate recommendations. OK to DC patient if HGB> 8 Thrombocytopenia. PLT 70. Monitor received 1U PLT. Cirrhosis with portal hypertension- chronic Continue home meds Spirolactone and 50 mg daily in addition to Lasix 20 mg daily. Monitor kidney function closely Continue lactulose per patient takes lactulose 45 mls bid scheduled Monitor Chronic back pain- Continue meds Depression - Continue Sertraline DVT prophylaxis ambulation per surgeon, however patient is at high risk of bleeding Thank you for this consultation we'll follow along Discussed Condition With patient, nurse Stable medically can be DC to f/u as OP with PCP and consultants Problem Qualifiers (1) Primary localized osteoarthrosis, lower leg: Qualified Codes: M17.12 - Unilateral primary osteoarthritis, left knee Xiao Bates MD Jun 25, 2017 09:01
--- NOTE | 2017-06-25 10:27 | PQ ---
Physician Query Response Document PATIENT: GOYO STONE : 1955 ADMIT DATE: 06/23/2017 6:45 AM DISCH DATE: RESPONDING PROVIDER #: [email or web address] QUERY TEXT: Anemia Type Anemia is documented in the Medical Record. PLEASE SPECIFY THE CAUSE AND ACUITY ( acute vs chronic) Such as: -- Due to acute blood loss -- Due to chronic blood loss -- Due to iron deficiency -- Due to postoperative blood loss -- Due to chronic disease -- Other, please specify The patient's Clinical Indicators include: 06/23/17 Preoperative Diagnosis: Left knee severe osteoarthritis - NOW S/P Procedure: Left total knee arthroplasty PER 06/24/17 HOSPITALIST PROGRESS NOTE - With postsurgical anemia ASSESSMENT AND PLAN STATES: Anemia with drop in HGB at 6.9 after surgery. Type and screen Transfuse 2U PRBC today. Pretreat. Received 1 U PLT as PLT at 70. Consult hematology oncology Query created by: Karen Kaufman on 06/24/2017 1:40 PM RESPONSE TEXT: Patient with macrocytic anemia alcohol related and also with postsurgical anemia. Received 2 U PRBC. Patient also with thrombocytopenia and h/o hep C , liver failure , alcoholism contributing factors Electronically signed by: Xiao Bates MD 06/25/2017 10:23 AM
[2017-06-25] MEDS: LACTULOSE SYRUP 20 GM/30 ML CUP PO SCH (10:55)
[2017-06-25] MEDS: DOCUSATE SODIUM 100 MG CAP PO SCH (10:55)
[2017-06-25] MEDS: ACETAMINOPHEN/HYDROcodone 325 MG/10 MG TAB PO PRN (10:55)
[2017-06-25] MEDS: MULTIVITAMINS/MINERALS THERAPEUTIC TAB PO SCH (10:55)
[2017-06-25] MEDS: FERROUS SULFATE 325 MG (65 MG ELEMENTAL IRON) TAB PO SCH (10:55)
[2017-06-25] MEDS: SERTRALINE HCL 100 MG TAB PO SCH (10:55)
[2017-06-25] MEDS: PANTOPRAZOLE SOD 40 MG DELAYED RELEASE TAB PO SCH (10:56)
[2017-06-25 12:00] VITALS: BP 135/61; PULSE 67; RESP 18; TEMP 98.3; O2SAT 99
[2017-06-25] MEDS: ENOXAPARIN SODIUM 40 MG/0.4 ML SYRINGE SQ SCH (12:57)
--- NOTE | 2017-06-25 23:17 | HHI.DS ---
Discharge Summary Admission Date Jun 23, 2017 at 06:45 Discharge Date: Jun 25, 2017 Admitting Diagnosis Primary localized OA, lower leg Status post total knee replacement, left Diagnosis: (1) Primary localized osteoarthrosis, lower leg Diagnosis: Principal ICD Codes: M17.10 - Unilateral primary osteoarthritis, unspecified knee (2) Status post total knee replacement, left Diagnosis: Principal ICD Codes: Z96.652 - Presence of left artificial knee joint Procedures Left TKA Brief History This is a 61 year old male patient with severe OA of the left knee CBC/BMP: 06/25/17 0807 06/25/17 0807 Significant Findings Laboratory Tests Test 06/24/17 08:18 06/25/17 08:07 White Blood Count 3.4 TH/MM3 (4.0-11.0) 3.7 TH/MM3 (4.0-11.0) Red Blood Count 1.91 MIL/MM3 (4.50-5.90) 2.40 MIL/MM3 (4.50-5.90) Hemoglobin 6.8 GM/DL (13.0-17.0) 8.1 GM/DL (13.0-17.0) Hematocrit 19.6 % (39.0-51.0) 23.5 % (39.0-51.0) Mean Corpuscular Volume 102.7 FL (80.0-100.0) Mean Corpuscular Hemoglobin 35.6 PG (27.0-34.0) Platelet Count 73 TH/MM3 (150-450) 76 TH/MM3 (150-450) Red Cell Distribution Width 18.7 % (11.6-17.2) Blood Urea Nitrogen 22 MG/DL (7-18) Random Glucose 113 MG/DL (74-106) Calcium Level 8.0 MG/DL (8.5-10.1) Chloride Level 108 MEQ/L (98-107) Estimat Glomerular Filtration Rate 78 ML/MIN (>89) PE at Discharge The patient's dressing is C/D/I. EHL/TA/G intact. 2+ pedal pulse. Calf is soft and nontender. + SILT. Hospital Course The patient was admitted to the hospital for severe OA of the left knee to have a left TKA. The patient's surgery went well with no complications other than some post op anemia that was addressed with a transfusion of PRBCs. The patient is WBAT. The patient was placed on 3 weeks of Lovenox for DVT prophylaxis. The patient is on a regular diet. The patient was discharged home with home health and will f/u with Dr. Duarte or ARIANA Mark as previously scheduled. Pt Condition on Discharge: Stable Discharge Disposition: Disch w/ Home Health Serv Discharge Instructions Diet Instructions: As Tolerated, No Restrictions Activities You Can Perform: Weight Bearing as Wyatt Activities to Avoid: Strenuous Activity Follow up Referrals: Orthopedics with Aleksey Duarte MD [facility]/ with NURSE [employer]ATE [employer]ING MANAGER - [phone] New Medications: Commode 3-in-1 (Commode 3-in-1) 1 Mis Mis EA .ROUTE DIRECTED, #1 0 Refills CPM-Continuous Passive Motion Machine (CPM-Continuous Passive Motion Machine) 1 Ea Device EA .ROUTE DIRECTED, #1 0 Refills Enoxaparin Inj (Enoxaparin Inj) 40 Mg/0.4 Ml Syr 40 MG SQ DAILY for Blood Clot Prevention for 21 Days, #21 SYRINGE 0 Refills Hydrocodone-Acetaminophen (Hydrocodone-Acetaminophen) 10-325 mg Tab 1-2 TAB PO Q4H PRN for PAIN, #60 TAB 0 Refills Walker with Front Wheels (Walker with Front Wheels) 1 Mis Mis EA .ROUTE DIRECTED, #1 0 Refills Continued Medications: Calcium Carbonate-Cholecalciferol (Oyster Shell Calcium/Vitamin D) 250-125 Mg- Unit Tab 500 MG PO Q12HR for Nutritional Supplement, #60 TAB Ferrous Sulfate (Ferrous Sulfate) 325 Mg (65 Mg Iron) Tablet 325 MG PO BIDPC for Nutritional Supplement, #60 TAB 0 Refills Furosemide (Furosemide) 20 Mg Tab 20 MG PO DAILY for Blood Pressure Management, #30 TAB Lactulose (Lactulose) 10 Gm/15 Ml Solution 45 ML PO BID for ammonia Magnesium Oxide (Magnesium Oxide) 241.3 Mg Tab 400 MG PO DAILY for Nutritional Supplement for 30 Days, TAB Pantoprazole (Pantoprazole) 40 Mg Tab 40 MG PO DAILY for Reflux, #30 TAB Pramipexole (Mirapex) 0.5 Mg Tab 0.5 MG PO BID PRN for rls, #60 TAB 0 Refills Propranolol (Propranolol) 10 Mg Tab 10 MG PO Q12HR for Blood Pressure Management, #60 TAB Sertraline (Zoloft) 100 Mg Tab 200 MG PO DAILY, #30 TAB 0 Refills Discontinued Medications: Oxycodone (Oxycodone) 5 Mg Cap 5 MG PO Q6H PRN for PAIN, CAP 0 Refills Edward Salinas Jun 25, 2017 23:17
== END 2017-06-25 13:42 | disposition home health service (06) | DRG 470 ==
LOC: HSDI 06:45 → N06B 16:37
PROVIDERS: ADMIT Orthopaedic Surgery; ATTEND Orthopaedic Surgery
PROC: 30233R1 Transfusion of Nonautologous Platelets into Peripheral Vein, Percutaneous Approach (ICD-10-PCS; 2017-06-23)
PROC: 3E0T3BZ Introduction of Anesthetic Agent into Peripheral Nerves and Plexi, Percutaneous Approach (ICD-10-PCS; 2017-06-23)
PROC: 0SRD0J9 Replacement of Left Knee Joint with Synthetic Substitute, Cemented, Open Approach (ICD-10-PCS; principal; 2017-06-23 12:13)
PROC: 30233N1 Transfusion of Nonautologous Red Blood Cells into Peripheral Vein, Percutaneous Approach (ICD-10-PCS; 2017-06-24)
DX: M17.12 Unilateral primary osteoarthritis, left knee (principal); D61.818 Other pancytopenia; K76.6 Portal hypertension; M41.9 Scoliosis, unspecified; G62.9 Polyneuropathy, unspecified; R16.1 Splenomegaly, not elsewhere classified; I10 Essential (primary) hypertension; K70.30 Alcoholic cirrhosis of liver without ascites; G89.4 Chronic pain syndrome; G25.81 Restless legs syndrome; F32.9 Major depressive disorder, single episode, unspecified; F10.21 Alcohol dependence, in remission; Z23 Encounter for immunization; Z87.891 Personal history of nicotine dependence
CPT/HCPCS: 36430; 73560; 80048; 85027; 86920; 90471; 90732; C1776; C9290; G0009; J0690; J0735; J1100; J1580; J1650; J1885; J1940; J2270; J2795; J3370; J7030; J7050; J7120; L1830; P9016; P9035

== ENCOUNTER 2018-01-03 09:20 | Inpatient (IN) | payer OTHER, MEDICARE ==
[~2018-01-03] VITALS: Ht 188 cm; Wt 91.0 kg
[2018-01-03] VITALS (11 sets, daily range): BP systolic 84–160; BP diastolic 48–82; PULSE 60–71; RESP 16–21; TEMP 96–99.6; O2SAT 95–99
[~2018-01-03 09:20] MED LIST changes: +COMMODE 3-IN-11 MIS; +CPMMACHINE; +ENOX40IN SQ; +HYDR-3583 PO; -OXYC1CAP PO; +WALKER WHEELS/F1 MIS
[2018-01-03] MEDS ORDERED: LACT10SO PO (09:41)
[2018-01-03] MEDS ORDERED: VITA10002 PO (09:41)
[2018-01-03] MEDS ORDERED: CALC1TAB87 PO (09:41)
--- NOTE | 2018-01-03 09:43 | PD ---
HPI Chief Complaint: Pain: Acute or Chronic Time Seen by Provider: 09:33 Travel History International Travel<30 days: No Contact w/Intl Traveler<30days: No Traveled to known affect area: No History of Present Illness HPI 62yo M with PMH of chronic pain currently not following pain management, depression, HTN, cirrhosis secondary to alcohol abuse, peripheral neuropathy was brought in by [facility] for right knee pain for 8 days. Pt was evaluated at [facility] 3 days ago and was given narco but said the narco is not helping and he is still in pain. EVAC said pt had a fever of 102F but there is no fever here. Pt does feel warm to touch. Denies any chest pain, sob, n/v , abdominal pain, focal weakness or numbness. Denies any trauma. PFSH Past Medical History Hx Anticoagulant Therapy: No Arthritis: Yes Asthma: No Autoimmune Disease: No Anxiety: Yes Depression: No Heart Rhythm Problems: Yes (tachy) Cancer: No Cardiovascular Problems: Yes High Cholesterol: No Chemotherapy: No Chest Pain: No Congestive Heart Failure: No COPD: No Cerebrovascular Accident: No Diabetes: No Patient Takes Glucophage: No Diminished Hearing: No Endocrine: No Gastrointestinal Disorders: Yes (bilateral inguinal hernias, GI bleed, hepatic encephalopathy, ASCITES) GERD: Yes (aspiration) Genitourinary: Yes (incontinence infrequently) Headaches: No Hepatitis: No Hiatal Hernia: No Heparin Induced Thrombocytopen: No Hypertension: Yes (portal HTN) Immune Disorder: No Implanted Vascular Access Dvce: Yes Kidney Stones: No Medical other: No Musculoskeletal: Yes (disc disorder with spine stimulator, arthritis) Neurologic: No Psychiatric: Yes (depression, ANXIETY) Reproductive: No Respiratory: Yes (atelectasis, left pleural effusion, VDRF, intubated x2) Migraines: No Radiation Therapy: No Renal Failure: No Seizures: No Sickle Cell Disease: No Sleep Apnea: No Thyroid Disease: No Ulcer: No Tetanus Vaccination: Unknown Past Surgical History Abdominal Surgery: Yes (draining of ascites) AICD: No Arteriovenous Shunt: No Body Medical Devices: pain stimulator and metal in the back Cardiac Surgery: No Ear Surgery: No Endocrine Surgery: No Eye Surgery: Yes (vitrectomy, bilat cataracts) Genitourinary Surgery: No Gynecologic Surgery: No Insulin Pump: No Joint Replacement: No Neurologic Surgery: Yes (mid back surgery with metal) Oral Surgery: Yes (tonsillectomy) Pacemaker: No Thoracic Surgery: No Other Surgery: Yes (LEFT KNEE REPLACEMENT) Social History Alcohol Use: No Tobacco Use: No Substance Use: Yes ("pot") Allergies-Medications (Allergen,Severity, Reaction): Coded Allergies: No Known Allergies (Unverified Allergy, Unknown, 01/03/18) Reported Meds & Prescriptions Reported Meds & Active Scripts Active Propranolol (Propranolol HCl) 10 Mg Tab 10 Mg PO Q12HR Pantoprazole (Pantoprazole Sodium) 40 Mg Tab 40 Mg PO DAILY Magnesium Oxide 241.3 Mg Tab 400 Mg PO DAILY 30 Days Furosemide 20 Mg Tab 20 Mg PO DAILY Reported Stokes (Hydrocodone-Acetaminophen) 5 Mg-325 Mg Tab 1 Tab PO Q6H PRN Lactulose Liq (Lactulose) 10 Gm/15 Ml Soln 30 Ml PO BID PRN Vitamin B-12 (Cyanocobalamin) 1,000 Mcg Tab 1,500 Mcg PO DAILY Calcium 600 with Vitamin D (Calcium Carbonate-Cholecalciferol) 600-400 mg-Unit Tab 1 Tab PO DAILY Zoloft (Sertraline HCl) 100 Mg Tab 200 Mg PO DAILY Ferrous Sulfate 325 Mg (65 Mg Iron) Tablet 325 Mg PO BIDPC Mirapex (Pramipexole Dihydrochloride) 0.5 Mg Tab 0.5 Mg PO BID PRN Review of Systems Except as stated in HPI: all other systems reviewed are Neg Physical Exam Narrative GENERAL: 62yo M in mild distress. SKIN: Focused skin assessment warm/dry. HEAD: Atraumatic. Normocephalic. EYES: Pupils equal and round. No scleral icterus. No injection or drainage. ENT: No nasal bleeding or discharge. Mucous membranes pink and moist. NECK: Trachea midline. No JVD. CARDIOVASCULAR: Regular rate and rhythm. No murmur appreciated. RESPIRATORY: No accessory muscle use. Clear to auscultation. Breath sounds equal bilaterally. GASTROINTESTINAL: Abdomen soft, non-tender, nondistended. MUSCULOSKELETAL: Right knee: +Joint effusion. No erythema. DP 2+. Knee joint is very tender with movement in both flexion and extension. Sensation intact. NEUROLOGICAL: Awake and alert. No obvious cranial nerve deficits. Motor grossly within normal limits. Data Data Last Documented VS Vital Signs Date Time Temp Pulse Resp B/P (MAP) Pulse Ox O2 Delivery O2 Flow Rate FiO2 01/03/18 12:52 66 16 86/54 (65) 98 Room Air 01/03/18 11:03 99.3 Orders Orders Blood Culture (01/03/18 09:36) Complete Blood Count With Diff (01/03/18 09:36) Basic Metabolic Panel (Bmp) (01/03/18 09:36) Prothrombin Time / Inr (Pt) (01/03/18 09:36) Act Partial Throm Time (Ptt) (01/03/18 09:36) Westergren Sedimentation Rate (01/03/18 09:36) C-Reactive Protein (Crp) (01/03/18 09:36) Knee, Ltd (1 Or 2vws) (01/03/18 ) Lidocaine 1% Inj (50 Ml) (Xylocaine 1% I (01/03/18 10:30) Ketorolac Inj (Toradol Inj) (01/03/18 10:30) Lidocaine Pf 1% Inj (Xylocaine-Mpf 1% In (01/03/18 10:27) Synovial Fl Cell Count + Diff (01/03/18 11:14) Synovial Fluid Crystals (01/03/18 11:14) Synovial Fluid Glucose (01/03/18 11:14) Synovial Fluid Total Protein (01/03/18 11:14) Sodium Chlor 0.9% 1000 Ml Inj (Ns 1000 M (01/03/18 11:30) Vancomycin Inj (Vancomycin Inj) (01/03/18 11:30) Ceftriaxone Inj (Rocephin Inj) (01/03/18 11:30) Sodium Chlor 0.9% 1000 Ml Inj (Ns 1000 M (01/03/18 12:00) Sodium Chlor 0.9% 1000 Ml Inj (Ns 1000 M (01/03/18 12:00) Lactic Acid Sepsis Protocol (01/03/18 12:01) Admit To Inpatient (01/03/18 ) Vital Signs (Adult) Q4H (01/03/18 13:21) Activity Oob With Assistance (01/03/18 13:21) Diet Regular Basic (01/03/18 Lunch) Sodium Chlor 0.9% 1000 Ml Inj (Ns 1000 M (01/03/18 13:21) Sodium Chloride 0.9% Flush (Ns Flush) (01/03/18 13:30) Sodium Chloride 0.9% Flush (Ns Flush) (01/03/18 21:00) Acetaminophen (Tylenol) (01/03/18 13:30) Metoclopramide Inj (Reglan Inj) (01/03/18 13:30) Basic Metabolic Panel (Bmp) (01/04/18 06:00) Complete Blood Count With Diff (01/04/18 06:00) Naloxone Inj (Narcan Inj) (01/03/18 13:30) Ceftriaxone Inj (Rocephin Inj) (01/04/18 11:00) Vancomycin Consult Pharmacy (Vancomycin (01/03/18 13:30) Ketorolac Inj (Toradol Inj) (01/03/18 18:00) Admit Order (Ed Use Only) (01/03/18 13:37) Vancomycin Inj (Vancomycin Inj) (01/03/18 23:00) Labs Laboratory Tests Test 01/03/18 09:35 01/03/18 11:10 01/03/18 12:00 White Blood Count 7.6 TH/MM3 Red Blood Count 2.59 MIL/MM3 Hemoglobin 8.2 GM/DL Hematocrit 25.2 % Mean Corpuscular Volume 97.6 FL Mean Corpuscular Hemoglobin 31.5 PG Mean Corpuscular Hemoglobin Concent 32.3 % Red Cell Distribution Width 18.3 % Platelet Count 107 TH/MM3 Mean Platelet Volume 8.6 FL Neutrophils (%) (Auto) 93.3 % Lymphocytes (%) (Auto) 2.8 % Monocytes (%) (Auto) 1.7 % Eosinophils (%) (Auto) 0.5 % Basophils (%) (Auto) 1.7 % Neutrophils # (Auto) 7.2 TH/MM3 Lymphocytes # (Auto) 0.2 TH/MM3 Monocytes # (Auto) 0.1 TH/MM3 Eosinophils # (Auto) 0.0 TH/MM3 Basophils # (Auto) 0.1 TH/MM3 CBC Comment DIFF FINAL Differential Comment Erythrocyte Sedimentation Rate 62 mm/hr Prothrombin Time 12.8 SEC Prothromb Time International Ratio 1.3 RATIO Activated Partial Thromboplast Time 29.6 SEC Blood Urea Nitrogen 18 MG/DL Creatinine 0.87 MG/DL Random Glucose 153 MG/DL Calcium Level 7.5 MG/DL Sodium Level 140 MEQ/L Potassium Level 3.3 MEQ/L Chloride Level 108 MEQ/L Carbon Dioxide Level 23.6 MEQ/L Anion Gap 8 MEQ/L Estimat Glomerular Filtration Rate 89 ML/MIN C-Reactive Protein 9.94 MG/DL Synovial Fluid Color YELLOW Synovial Fluid Appearance MARKED Synovial Fluid WBC 54274 /MM3 Synovial Fluid RBC 3000 /MM3 Synovial Fluid Neutrophils 87 % Synovial Fluid Lymphocytes 7 % Synovial Fluid Monocytes 6 % Synovial Fluid Crystals NONE Lactic Acid Level 0.8 mmol/L MDM Medical Decision Making Medical Screen Exam Complete: Yes Emergency Medical Condition: Yes Differential Diagnosis Septic joint vs. gout vs. rheumatoid arthritis Narrative Course 62yo M with right knee pain for 8 days that have been worsening. Seen at [facility] 3 days ago and was told that he has joint effusion on the xray but nothing else was done as per patient. Said pain worsened and he has not been able to walk for the last 3 days. Pt had fever by [facility] but no fever here. He does feel very warm to touch. Labs reviewed, no leukocytosis. H/H low at 8.2/25.2 which is baseline. ESR elevated at 62. C-reactive protein elevated at 9.94. Mild hypokalemia at 3.3. Xray right knee showed large joint effusion with mild degenerative changes in the medial lateral compartments. No fracture. Arthrocentesis of right knee was performed after informed consent and the synovial fluid was cloudy so pt given empiric antibiotics. Blood pressure was low so given NS IVF and did improve to 104/55 after 2 liters of NS IVF. Will admit to r/o septic joint and monitor blood pressure. Pt is also unable to ambulate secondary to pain. Critical Care Narrative Aggregate critical care time was 40 minutes. Time to perform other separately billable procedures was note included in the critical care time. My time did not include minutes spent treating any other patients simultaneously or on activities that did not directly contribute to the patient's treatment. The services I provided to this patient were to treat and/or prevent clinically significant deterioration that could result in: cardiovascular collapse or . I provided critical care services requiring my management, as noted below: Chart data review, documentation time, medication orders and management, vital sign assessments/reviewing monitor data, ordering and reviewing lab tests, ordering and interpreting/reviewing x- rays and diagnostic studies, care of the patient and discussion of the patient with the admitting physicians. Procedures Procedure Narrative Right knee arthrocentesis: Betadine was used to clean medial aspect of right knee. Sterile drapes applied and right knee was anesthesized with 8cc of 1% lidocaine. Then 18 gauge needle was inserted medial to inferior aspect of patella and 15 cc of synovial fluid was collected. Synovial fluid was cloudy in appearance. Bandage applied after. Pt tolerated procedure well. Diagnosis Primary Impression: Hypotension Qualified Codes: I95.9 - Hypotension, unspecified Additional Impression: Septic joint of right knee joint Qualified Codes: M00.9 - Pyogenic arthritis, unspecified Admitting Information Admitting Physician Requests: Candida Kilpatrick DO Jan 03, 2018 09:43
[2018-01-03 09:55] LABS: AUTOMATED NEUTROPHIL # 7.2 TH/MM3 (1.8-7.7); BASOPHIL # 0.1 TH/MM3 (0-0.2); BASOPHIL % 1.7 % (0.0-2.0); EOSINOPHIL % 0.5 % (0.0-4.0); HEMATOCRIT 25.2 % (39.0-51.0); HEMOGLOBIN 8.2 GM/DL (13.0-17.0); LYMPH % 2.8 % (9.0-44.0); LYMPHOCYTE # 0.2 TH/MM3 (1.0-4.8); MEAN CELL VOLUME 97.6 FL (80.0-100.0); MEAN CORPUSCULAR HEMOGLOBIN 31.5 PG (27.0-34.0); MEAN CORPUSCULAR HGB CONC 32.3 % (32.0-36.0); MEAN PLATELET VOLUME 8.6 FL (7.0-11.0); MONO % 1.7 % (0.0-8.0); MONOCYTE # 0.1 TH/MM3 (0-0.9); NEUT % 93.3 % (16.0-70.0); PLATELET COUNT 107 TH/MM3 (150-450); RED BLOOD COUNT 2.59 MIL/MM3 (4.50-5.90); RED CELL DISTRIBUTION WIDTH 18.3 % (11.6-17.2); WHITE BLOOD COUNT 7.6 TH/MM3 (4.0-11.0)
[2018-01-03 10:05] LABS: CALCIUM 7.5 MG/DL (8.5-10.1)
[2018-01-03 10:06] LABS: BICARBONATE 23.6 MEQ/L (21.0-32.0)
[2018-01-03 10:09] LABS: CREATININE 0.87 MG/DL (0.60-1.30)
[2018-01-03 10:15] LABS: INTERNATIONAL NORMALIZED RATIO 1.3 RATIO; PROTHROMBIN TIME - PATIENT 12.8 SEC (9.8-11.6)
[2018-01-03 10:22] LABS: C-REACTIVE PROTEIN 9.94 MG/DL (0.00-0.30)
[2018-01-03] MEDS ORDERED: LIDOCAINE HCL 1% PF 30 ML VIAL ONE (10:27)
[2018-01-03] MEDS ORDERED: LIDOCAINE HCL 1% 50 ML VIAL INFIL ONE (10:30)
[2018-01-03] MEDS ORDERED: KETOROLAC TROMETHAMINE 30 MG/ML (IVP) VIAL IV PUSH ONE (10:30)
--- NOTE | 2018-01-03 10:33 | RADRPT ---
EXAM DATE: 01/03/2018 10:21 AM EDT AGE/SEX: 62 years / Male INDICATIONS: Right knee pain post fall. CLINICAL DATA: This is the patient's initial encounter. Patient reports that signs and symptoms have been present for 3 days and indicates a pain score of 10/10. MEDICAL/SURGICAL HISTORY: None. None. COMPARISON: No prior exams available for comparison. FINDINGS: The examination demonstrates a large joint effusion in the suprapatella bursa. There are mild arthrit ic changes in the medial lateral compartments. No acute fracture or destructive lesion is identified. CONCLUSION: Large joint effusion with mild degenerative changes in the medial lateral compartments. No fracture i dentified. Electronically signed by: Edward Zaman MD 01/03/2018 10:31 AM EDT
[2018-01-03] MEDS ORDERED: cefTRIAXone INJ 2,000 MG in SODIUM CHLORIDE 0.9% INJ 100 ML IV ONE (11:30)
[2018-01-03] MEDS ORDERED: SODIUM CHLOR 0.9% 1000 ML INJ 1,000 ML IV ONE ×3 (11:30→12:00)
[2018-01-03] MEDS ORDERED: VANCOMYCIN INJ 1,100 MG in SODIUM CHLOR 0.9% 250 ML INJ 250 ML IV ONE (11:30)
[2018-01-03] MEDS ORDERED: NORC5TAB PO (12:16)
[2018-01-03 12:57] LABS: WBC, SYNOVIAL FLUID 43900 /MM3 (0-200)
[2018-01-03] MEDS ORDERED: ACETAMINOPHEN 325 MG TAB PO PRN (13:30)
[2018-01-03] MEDS ORDERED: Vancomycin Consult Pharmacy 1 EA OTHER SCH (13:30)
[2018-01-03] MEDS ORDERED: METOCLOPRAMIDE HCL 10 MG/2 ML VIAL IV PUSH PRN (13:30)
[2018-01-03] MEDS ORDERED: SODIUM CHLORIDE 0.9% FLUSH 10 ML FLUSH IV FLUSH PRN (13:30)
[2018-01-03] MEDS ORDERED: NALOXONE HCL 0.4 MG/ML AMP IV PUSH PRN (13:30)
[2018-01-03] MEDS ORDERED: PRAMIPEXOLE DIHYDROCHLORIDE 0.25 MG TAB PO PRN (13:45)
[2018-01-03] MEDS: SODIUM CHLOR 0.9% 1000 ML INJ 1,000 ML IV SCH ×2 (13:54→23:39)
--- NOTE | 2018-01-03 14:10 | HHI.HP ---
HPI [facility] Primary Care Physician Prabhakar Ashley M.D. 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 He came to the hospital because of right knee pain which has been severe over the last 6 days. He notes no fevers or chills but noted that the knee Swelling he could not flex it or extend it. He actually fell on the knee. Went to the emergency room at another facility and was discharged on [place]. He has a known history of degenerative joint disease in both knees and has had left knee replacement in the past. The knee is quite swollen with effusion. Patient admits to fever at home and he has been hypotensive here. He has chronic leukopenia and thrombocytopenia. Patient has elevated inflammatory markers and appears to be septic. He has been admitted to the hospital for further antibiotics. Joint aspiration was done in the emergency room and there is evidence of white cells. Review of Systems Constitutional: DENIES: Diaphoretic episodes, Fatigue, Fever, Weight gain, Weight loss, Chills, Dizziness, Change in appetite, Night Sweats Endocrine: DENIES: Heat/cold intolerance, Polydipsia, Polyuria, Polyphagia Eyes: DENIES: Blurred vision, Diplopia, Eye inflammation, Eye pain, Vision loss , Photosensitivity, Double Vision Ears, nose, mouth, throat: DENIES: Tinnitus, Hearing loss, Vertigo, Nasal discharge, Oral lesions, Throat pain, Hoarseness, Ear Pain, Running Nose, Epistaxis, Sinus Pain, Toothache, Odynophagia Respiratory: DENIES: Apneas, Cough, Snoring, Wheezing, Hemoptysis, Sputum production, Shortness of breath Cardiovascular: DENIES: Chest pain, Palpitations, Syncope, Dyspnea on Exertion , PND, Lower Extremity Edema, Orthopnea, Claudication Gastrointestinal: DENIES: Abdominal pain, Black stools, Bloody stools, Constipation, Diarrhea, Nausea, Vomiting, Difficulty Swallowing, Anorexia Genitourinary: DENIES: Sexual dysfunction, Urinary frequency, Urinary incontinence, Urgency, Hematuria, Dysuria, Nocturia, Penile Discharge, Testicular Pain, Testicular Swelling Musculoskeletal: COMPLAINS OF: Joint pain, Joint Swelling, DENIES: Muscle aches , Stiffness, Back pain, Neck pain Integumentary: DENIES: Abnormal pigmentation, Nail changes, Pruritus, Rash Hematologic/lymphatic: COMPLAINS OF: Bruising, DENIES: Lymphadenopathy Immunologic/allergic: DENIES: Eczema, Urticaria Neurologic: COMPLAINS OF: Abnormal gait, Tremor, Poor Balance, DENIES: Headache , Localized weakness, Paresthesias, Seizures, Speech Problems Psychiatric: DENIES: Anxiety, Confusion, Mood changes, Depression, Hallucinations, Agitation, Suicidal Ideation, Homicidal Ideation, Delusions Except as stated in HPI: all other systems reviewed are Neg Past Family Social History Past Medical History Cytopenia from liver failure Portal hypertension Edema Depression/anxiety History of alcohol dependency Past Surgical History Eye surgery Neurostimulator currently and used Back surgery Tonsillectomy Left knee replacement Reported Medications Reviewed in the EMR, recently prescribed [place] Allergies: Coded Allergies: No Known Allergies (Unverified Allergy, Unknown, 01/03/18) Active Ordered Medications Reviewed in the EMR Family History Parents in their 60s Father had renal disease and COPD Children are alive and well Social History Quit alcohol dependency issues in 2016 No tobacco Smokes marijuana Lives with his Physical Exam Vital Signs Vital Signs Date Time Temp Pulse Resp B/P (MAP) Pulse Ox O2 Delivery O2 Flow Rate FiO2 01/03/18 12:52 66 16 86/54 (65) 98 Room Air 01/03/18 12:17 61 16 95/51 (66) 98 Room Air 01/03/18 11:46 61 16 84/48 (60) Room Air 01/03/18 11:03 99.3 68 16 97/54 (68) 96 01/03/18 09:29 16 01/03/18 09:24 99.6 71 16 115/63 (80) 95 Physical Exam GENERAL: This is a well-nourished, well-developed patient, complaining of right knee pain SKIN: No rashes, ecchymoses or lesions. Cool and dry. HEAD: Atraumatic. Normocephalic. No temporal or scalp tenderness. EYES: Pupils equal round and reactive. Extraocular motions intact. No scleral icterus. No injection or drainage. ENT: Nose without bleeding, purulent drainage or septal hematoma. Throat without erythema, tonsillar hypertrophy or exudate. Uvula midline. Airway patent. NECK: Trachea midline. No JVD or lymphadenopathy. Supple, nontender, no meningeal signs. CARDIOVASCULAR: Regular rate and rhythm without murmurs, gallops, or rubs. RESPIRATORY: Clear to auscultation. Breath sounds equal bilaterally. No wheezes , rales, or rhonchi. GASTROINTESTINAL: Abdomen soft, non-tender, nondistended. No hepato-splenomegaly , or palpable masses. No guarding. MUSCULOSKELETAL: Extremities without clubbing, cyanosis, or edema. No joint tenderness, effusion, or edema noted. No calf tenderness. Negative Homans sign bilaterally. NEUROLOGICAL: Awake and alert. Cranial nerves II through XII intact. Motor and sensory grossly within normal limits. Five out of 5 muscle strength in all muscle groups. Slow but normal for patient Laboratory Laboratory Tests Test 01/03/18 09:35 01/03/18 11:10 01/03/18 12:00 White Blood Count 7.6 Red Blood Count 2.59 Hemoglobin 8.2 Hematocrit 25.2 Mean Corpuscular Volume 97.6 Mean Corpuscular Hemoglobin 31.5 Mean Corpuscular Hemoglobin Concent 32.3 Red Cell Distribution Width 18.3 Platelet Count 107 Mean Platelet Volume 8.6 Neutrophils (%) (Auto) 93.3 Lymphocytes (%) (Auto) 2.8 Monocytes (%) (Auto) 1.7 Eosinophils (%) (Auto) 0.5 Basophils (%) (Auto) 1.7 Neutrophils # (Auto) 7.2 Lymphocytes # (Auto) 0.2 Monocytes # (Auto) 0.1 Eosinophils # (Auto) 0.0 Basophils # (Auto) 0.1 CBC Comment DIFF FINAL Differential Comment Erythrocyte Sedimentation Rate 62 Prothrombin Time 12.8 Prothromb Time International Ratio 1.3 Activated Partial Thromboplast Time 29.6 Blood Urea Nitrogen 18 Creatinine 0.87 Random Glucose 153 Calcium Level 7.5 Sodium Level 140 Potassium Level 3.3 Chloride Level 108 Carbon Dioxide Level 23.6 Anion Gap 8 Estimat Glomerular Filtration Rate 89 C-Reactive Protein 9.94 Synovial Fluid Color YELLOW Synovial Fluid Appearance MARKED Synovial Fluid WBC 72510 Synovial Fluid RBC 3000 Synovial Fluid Neutrophils 87 Synovial Fluid Lymphocytes 7 Synovial Fluid Monocytes 6 Lactic Acid Level 0.8 Date/Time Source Procedure Growth Status 01/03/18 09:45 Blood Peripheral Aerobic Blood Culture Pending Received 01/03/18 09:45 Blood Peripheral Anaerobic Blood Culture Pending Received Result Diagram: 01/03/18 0935 01/03/18 0935 Imaging Last Impressions Knee X-Ray 01/03/18 0000 Signed Impressions: CONCLUSION: Large joint effusion with mild degenerative changes in the medial lateral layo rtments. No fracture identified. Septic Shock Reassessment Septic shock perfusion: reassessment completed Caprini VTE Risk Assessment Caprini VTE Risk Assessment: Mod/High Risk (score >= 2) VTE Pharm Contraindication: Coagulopathy,INR elevated Caprini Risk Assessment Model Point Value = 1 Point Value = 2 Point Value = 3 Point Value = 5 Age 41-60 Minor surgery BMI > 25 kg/m2 Swollen legs Varicose veins or History of unexplained or recurrent spontaneous Oral contraceptives or hormone replacement Sepsis (< 1 month) Serious lung disease, including pneumonia (< 1 month) Abnormal pulmonary function Acute myocardial infarction Congestive heart failure (< 1 month) History of inflammatory bowel disease Medical patient at bed rest Age 61-74 Arthroscopic surgery Major open surgery (> 45 min) Laparoscopic surgery (> 45 min) Malignancy Confined to bed (> 72 hours) Immobilizing plaster cast Central venous access Age >= 75 History of VTE Family history of VTE Factor V Leiden Prothrombin [id number] Lupus anticoagulant Anticardiolipin antibodies Elevated serum homocysteine Heparin-induced thrombocytopenia Other congenital or acquired thrombophilia Stroke (< 1 month) Elective arthroplasty Hip, pelvis, or leg fracture Acute spinal cord injury (< 1 month) Prophylaxis Regimen Total Risk Factor Score Risk Level Prophylaxis Regimen 0-1 Low Early ambulation 2 Moderate Order ONE of the following: *Sequential Compression Device (SCD) *Heparin 5000 units SQ BID 3-4 Higher Order ONE of the following medications: *Heparin 5000 units SQ TID *Enoxaparin/Lovenox 40 mg SQ daily (WT < 150 kg, CrCl > 30 mL/min) *Enoxaparin/Lovenox 30 mg SQ daily (WT < 150 kg, CrCl > 10-29 mL/min) *Enoxaparin/Lovenox 30 mg SQ BID (WT < 150 kg, CrCl > 30 mL/min) AND/OR *Sequential Compression Device (SCD) 5 or more Highest Order ONE of the following medications: *Heparin 5000 units SQ TID (Preferred with Epidurals) *Enoxaparin/Lovenox 40 mg SQ daily (WT < 150 kg, CrCl > 30 mL/min) *Enoxaparin/Lovenox 30 mg SQ daily (WT < 150 kg, CrCl > 10-29 mL/min) *Enoxaparin/Lovenox 30 mg SQ BID (WT < 150 kg, CrCl > 30 mL/min) AND *Sequential Compression Device (SCD) Assessment and Plan Problem List: (1) Pancytopenia ICD Code: D61.818 - Other pancytopenia Plan: Chronic per patient secondary to liver failure. Patient has a left shift without elevation in his white cell counts. He has chronic leukocytopenia and will need to be treated as an sepsis patient with immunocompromise state Follows up with Dr. goodman Recent blood transfusion iron infusions this past week (2) Septic joint of right knee joint ICD Code: M00.9 - Pyogenic arthritis, unspecified Plan: Continue Rocephin and vancomycin Follow-up cultures Status post bedside arthrocentesis per ER MD We will follow-up with invasive radiology if further procedures are necessary Orthotic consult (patient follows with Dr. Palacio who did a left knee replacement) (3) Hypotension ICD Code: I95.9 - Hypotension, unspecified Plan: Secondary to sepsis Continue IV hydration and hold propanolol as needed (4) Depression ICD Code: F32.9 - Major depressive disorder, single episode, unspecified Status: Chronic (5) Liver cirrhosis ICD Code: K74.60 - Unspecified cirrhosis of liver Status: Chronic Plan: Secondary to alcohol Lactulose, Protonix and propranolol to continue as his blood pressure will allow. Follow-up ammonia level patient high risk of infection due to immunocompromise state Physician Certification 2 Midnight Certification Type: Admission for Inpatient Services Order for Inpatient Services The services are ordered in accordance with Medicare regulations or non- Medicare payer requirements, as applicable. In the case of services not specified as inpatient-only, they are appropriately provided as inpatient services in accordance with the 2-midnight benchmark. Estimated LOS (days): 3 3 days is the estimated time the patient will need to remain in the hospital, assuming treatment plan goals are met and no additional complications. Post-Hospital Plan: Radha Mccoy MD Jan 03, 2018 14:10
[2018-01-03] MEDS: KETOROLAC TROMETHAMINE 30 MG/ML (IVP) VIAL IV PUSH SCH ×2 (17:33→23:31)
[2018-01-03] MEDS: FERROUS SULFATE 325 MG (65 MG ELEMENTAL IRON) TAB PO SCH (17:33)
--- NOTE | 2018-01-03 20:03 | PD.CONS ---
HPI Service Orthopedic Surgeons Consult Requested By Reason for Consult Right knee pain and swelling Primary Care Physician Prabhakar Ashley M.D. 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 He came to the hospital because of right knee pain which has been severe over the last 6 days. He notes no fevers or chills. He actually fell on the knee as result of the pain and swelling. Went to the emergency room at another facility and was discharged on [place]. He has a known history of degenerative joint disease in both knees and has had left knee replacement in the past. He has chronic leukopenia and thrombocytopenia. Patient has elevated inflammatory markers. He has been admitted to the hospital for further antibiotics. Right knee aspiration performed in ED with WBC [id number] and 87% PMN. Gram stain and culture pending. Of note, patient is sitting upright in bed finishing his dinner as I talk to him. Review of Systems Constitutional: DENIES: Fever Endocrine: DENIES: Heat/cold intolerance Eyes: DENIES: Blurred vision Ears, nose, mouth, throat: DENIES: Throat pain Respiratory: DENIES: Cough Cardiovascular: DENIES: Chest pain Gastrointestinal: DENIES: Abdominal pain Genitourinary: DENIES: Urinary incontinence Musculoskeletal: COMPLAINS OF: Joint pain, Joint Swelling Integumentary: DENIES: Rash Hematologic/lymphatic: DENIES: Bruising Immunologic/allergic: DENIES: Eczema Neurologic: DENIES: Abnormal gait Psychiatric: DENIES: Anxiety Past Family Social History Past Medical History Cytopenia from liver failure Portal hypertension Edema Depression/anxiety History of alcohol dependency Past Surgical History Eye surgery Neurostimulator currently and used Back surgery Tonsillectomy Left knee replacement Reported Medications please see chart for full list. Denies blood thinner Allergies: Coded Allergies: No Known Allergies (Unverified Allergy, Unknown, 01/03/18) Active Ordered Medications Current Medications Medications (Trade) Dose Ordered Sig/Joann Route Start Time Stop Time Status Last Admin Sodium Chloride 1,000 ml @ 100 mls/hr Q10H IV 01/03/18 13:21 01/03/18 13:54 (NS Flush) 2 ml UNSCH PRN IV FLUSH 01/03/18 13:30 (NS Flush) 2 ml BID IV FLUSH 01/03/18 21:00 (Tylenol) 650 mg Q4H PRN PO 01/03/18 13:30 (Reglan Inj) 5 mg Q6H PRN IV PUSH 01/03/18 13:30 (Narcan Inj) 0.4 mg UNSCH PRN IV PUSH 01/03/18 13:30 Ceftriaxone Sodium 1000 mg/ Sodium Chloride 100 ml @ 200 mls/hr Q24H IV 01/04/18 11:00 Vancomycin HCl 1250 mg/Sodium Chloride 262.5 ml @ 262.5 mls/ hr Q12H IV 01/03/18 23:00 Pharmacy Profile Note 0 ml @ 0 mls/hr UNSCH OTHER 01/03/18 13:30 (Toradol Inj) 30 mg Q6HR IV PUSH 01/03/18 18:00 01/05/18 17:59 01/03/18 17:33 (Ferrous Sulfate) 325 mg BIDPC PO 01/03/18 18:00 01/03/18 17:33 (Lasix) 20 mg DAILY PO 01/04/18 09:00 ([place] 5-325 Mg) 1 tab Q6H PRN PO 01/03/18 13:45 (Protonix) 40 mg DAILY PO 01/04/18 09:00 (Mirapex) 0.5 mg BID PRN PO 01/03/18 13:45 (Zoloft) 200 mg DAILY PO 01/04/18 09:00 ([facility] Ordered Lab Info) SPECIFIC LAB TO BE ... ONCE ONCE .XX 01/04/18 22:45 01/04/18 22:46 Reported Meds & Active Scripts Active Propranolol (Propranolol HCl) 10 Mg Tab 10 Mg PO Q12HR Pantoprazole (Pantoprazole Sodium) 40 Mg Tab 40 Mg PO DAILY Magnesium Oxide 241.3 Mg Tab 400 Mg PO DAILY 30 Days Furosemide 20 Mg Tab 20 Mg PO DAILY Reported [place] (Hydrocodone-Acetaminophen) 5 Mg-325 Mg Tab 1 Tab PO Q6H PRN Lactulose Liq (Lactulose) 10 Gm/15 Ml Soln 30 Ml PO BID PRN Vitamin B-12 (Cyanocobalamin) 1,000 Mcg Tab 1,500 Mcg PO DAILY Calcium 600 with Vitamin D (Calcium Carbonate-Cholecalciferol) 600-400 mg-Unit Tab 1 Tab PO DAILY Zoloft (Sertraline HCl) 100 Mg Tab 200 Mg PO DAILY Ferrous Sulfate 325 Mg (65 Mg Iron) Tablet 325 Mg PO BIDPC Mirapex (Pramipexole Dihydrochloride) 0.5 Mg Tab 0.5 Mg PO BID PRN Family History Parents in their 60s Father had renal disease and COPD Children are alive and well Social History Quit alcohol dependency issues in 2016 No tobacco Smokes marijuana Lives with his Physical Exam Vital Signs Vital Signs Date Time Temp Pulse Resp B/P (MAP) Pulse Ox O2 Delivery O2 Flow Rate FiO2 01/03/18 17:19 66 01/03/18 16:36 160/82 (108) 01/03/18 16:00 97.8 60 21 98/50 (66) 99 01/03/18 14:02 60 16 98 01/03/18 13:55 60 16 108/52 (70) 98 Room Air 01/03/18 12:52 66 16 86/54 (65) 98 Room Air 01/03/18 12:17 61 16 95/51 (66) 98 Room Air 01/03/18 11:46 61 16 84/48 (60) Room Air 01/03/18 11:03 99.3 68 16 97/54 (68) 96 01/03/18 09:29 16 01/03/18 09:24 99.6 71 16 115/63 (80) 95 Physical Exam Awake, alert, no acute distress Normocephalic pupils equal No JVD Moist mucous membranes Soft nontender abdomen Regular rate Nonlabored respirations Right lower extremity: Significant effusion around the right knee. No erythema appreciated. No significant tenderness to palpation. Patient will not allow any significant range of motion. Currently he will only allow approximately 0-30 degrees. Patient is neurovascularly intact distally. Brisk cap refill. left lower extremity and bilateral upper extremities: No significant tenderness palpation, visible deformities or signs of infection. Neurovascularly intact distally. Brisk cap refill. No rash Normal affect Laboratory Laboratory Tests Test 01/03/18 09:35 01/03/18 11:10 01/03/18 12:00 01/03/18 14:22 White Blood Count 7.6 Red Blood Count 2.59 Hemoglobin 8.2 Hematocrit 25.2 Mean Corpuscular Volume 97.6 Mean Corpuscular Hemoglobin 31.5 Mean Corpuscular Hemoglobin Concent 32.3 Red Cell Distribution Width 18.3 Platelet Count 107 Mean Platelet Volume 8.6 Neutrophils (%) (Auto) 93.3 Lymphocytes (%) (Auto) 2.8 Monocytes (%) (Auto) 1.7 Eosinophils (%) (Auto) 0.5 Basophils (%) (Auto) 1.7 Neutrophils # (Auto) 7.2 Lymphocytes # (Auto) 0.2 Monocytes # (Auto) 0.1 Eosinophils # (Auto) 0.0 Basophils # (Auto) 0.1 CBC Comment DIFF FINAL Differential Comment Erythrocyte Sedimentation Rate 62 Prothrombin Time 12.8 Prothromb Time International Ratio 1.3 Activated Partial Thromboplast Time 29.6 Blood Urea Nitrogen 18 Creatinine 0.87 Random Glucose 153 Calcium Level 7.5 Sodium Level 140 Potassium Level 3.3 Chloride Level 108 Carbon Dioxide Level 23.6 Anion Gap 8 Estimat Glomerular Filtration Rate 89 C-Reactive Protein 9.94 Synovial Fluid Color YELLOW Synovial Fluid Appearance MARKED Synovial Fluid WBC 73293 Synovial Fluid RBC 3000 Synovial Fluid Neutrophils 87 Synovial Fluid Lymphocytes 7 Synovial Fluid Monocytes 6 Synovial Fluid Crystals NONE Lactic Acid Level 0.8 Ammonia 40 Date/Time Source Procedure Growth Status 01/03/18 09:45 Blood Peripheral Aerobic Blood Culture Pending Received 01/03/18 09:45 Blood Peripheral Anaerobic Blood Culture Pending Received Result Diagram: 01/03/18 0935 01/03/18 0935 Imaging Last 48 hours Impressions Knee X-Ray 01/03/18 0000 Signed Impressions: CONCLUSION: Large joint effusion with mild degenerative changes in the medial lateral layo rtments. No fracture identified. Assessment & Plan Assessment and Plan 62-year-old gentleman with known history of rheumatoid arthritis with right knee pain and swelling At this time, patient has had a right knee aspiration with elevated white blood cells although below the typical threshold for septic arthritis below 50,000. He does have significant effusion although minimal erythema. At this time his symptoms have been present for several days and therefore I would recommend continued observation and following up his Gram stain and culture of the right knee fluid. Should this become positive, I discussed with the patient that he very well would need an irrigation and debridement of his right knee. Patient agrees with nonoperative treatment at this time and observation. Rosa Garces MD Jan 03, 2018 20:03
[2018-01-03] MEDS: ACETAMINOPHEN/HYDROcodone 325 MG/5 MG TAB PO PRN (20:11)
[2018-01-03] MEDS: SODIUM CHLORIDE 0.9% FLUSH 10 ML FLUSH IV FLUSH SCH (21:00)
[2018-01-03] MEDS: VANCOMYCIN INJ 1,250 MG in SODIUM CHLOR 0.9% 250 ML INJ 250 ML IV SCH (23:39)
[2018-01-04] VITALS (12 sets, daily range): BP systolic 99–133; BP diastolic 54–70; PULSE 71–87; RESP 16–20; TEMP 97.7–100.7; O2SAT 98–99
[2018-01-04] MEDS: ACETAMINOPHEN/HYDROcodone 325 MG/5 MG TAB PO PRN ×4 (02:50→22:20)
[2018-01-04] MEDS: KETOROLAC TROMETHAMINE 30 MG/ML (IVP) VIAL IV PUSH SCH ×2 (06:05→10:57)
[2018-01-04 06:37] LABS: AUTOMATED NEUTROPHIL # 2.9 TH/MM3 (1.8-7.7); BASOPHIL % 0.2 % (0.0-2.0); EOSINOPHIL # 0.1 TH/MM3 (0-0.4); EOSINOPHIL % 1.6 % (0.0-4.0); LYMPH % 7.4 % (9.0-44.0); LYMPHOCYTE # 0.3 TH/MM3 (1.0-4.8); MEAN CELL VOLUME 95.9 FL (80.0-100.0); MEAN CORPUSCULAR HGB CONC 33.3 % (32.0-36.0); MEAN PLATELET VOLUME 8.9 FL (7.0-11.0); MONO % 4.9 % (0.0-8.0); MONOCYTE # 0.2 TH/MM3 (0-0.9); NEUT % 85.9 % (16.0-70.0); PLATELET COUNT 64 TH/MM3 (150-450); RED BLOOD COUNT 1.97 MIL/MM3 (4.50-5.90); WHITE BLOOD COUNT 3.5 TH/MM3 (4.0-11.0)
[2018-01-04 06:47] LABS: HEMATOCRIT 18.9 % (39.0-51.0); HEMOGLOBIN 6.3 GM/DL (13.0-17.0)
[2018-01-04 07:05] LABS: BICARBONATE 21.3 MEQ/L (21.0-32.0); CALCIUM 7.1 MG/DL (8.5-10.1); CREATININE 0.87 MG/DL (0.60-1.30)
[2018-01-04] MEDS ORDERED: POTASSIUM CHLORIDE 10 MEQ CONTROLLED RELEASE TAB PO ONE (07:15)
[2018-01-04 07:27] LABS: CALCIUM-PROTEIN CORRECTED 8.6 MG/DL (8.5-10.1); TOTAL PROTEIN 4.4 GM/DL (6.4-8.2)
[2018-01-04] MEDS ORDERED: diphenhydrAMINE HCL 25 MG CAP PO PRN (07:30)
[2018-01-04] MEDS ORDERED: SODIUM CHLOR 0.9% 250 ML INJ 250 ML IV ONE (07:30)
[2018-01-04] MEDS ORDERED: ACETAMINOPHEN 325 MG TAB PO PRN (07:30)
[2018-01-04 08:01] LABS: ALBUMIN 1.8 GM/DL (3.4-5.0); DIRECT BILIRUBIN ADULT 0.4 MG/DL (0.0-0.2); INDIRECT BILIRUBIN 0.3 MG/DL (0.0-0.8); TOTAL BILIRUBIN ADULT 0.7 MG/DL (0.2-1.0)
--- NOTE | 2018-01-04 08:40 | HHI.PR ---
Subjective Remarks Follow-up for pancytopenia, right knee swelling and arthritis. Patient is currently doing well. He complains of right knee pain. No fever or chills. Objective Vitals Vital Signs Date Time Temp Pulse Resp B/P (MAP) Pulse Ox O2 Delivery O2 Flow Rate FiO2 01/04/18 04:00 97.7 71 20 99/55 (70) 99 01/04/18 00:00 98.5 71 20 102/56 (71) 99 01/03/18 21:16 18 01/03/18 21:00 60 01/03/18 20:00 96.0 65 20 100/57 (71) 98 01/03/18 17:19 66 01/03/18 16:36 160/82 (108) 01/03/18 16:00 97.8 60 21 98/50 (66) 99 01/03/18 14:02 60 16 98 01/03/18 13:55 60 16 108/52 (70) 98 Room Air 01/03/18 12:52 66 16 86/54 (65) 98 Room Air 01/03/18 12:17 61 16 95/51 (66) 98 Room Air 01/03/18 11:46 61 16 84/48 (60) Room Air 01/03/18 11:03 99.3 68 16 97/54 (68) 96 01/03/18 09:29 16 01/03/18 09:24 99.6 71 16 115/63 (80) 95 I/O 01/03/18 01/03/18 01/03/18 01/04/18 01/04/18 01/04/18 06:59 14:59 22:59 06:59 14:59 22:59 Intake Total 3361 ml 120 ml 1200 ml Output Total 175 ml 125 ml Balance 3361 ml -55 ml 1075 ml Intake Oral 120 ml IV Total 3361 ml 1200 ml Output Urine Total 175 ml 125 ml # Voids 1 1 # Bowel Movements 0 0 Result Diagram: 01/04/18 0530 01/04/18 0530 Imaging Last Impressions Knee X-Ray 01/03/18 0000 Signed Impressions: CONCLUSION: Large joint effusion with mild degenerative changes in the medial lateral layo rtments. No fracture identified. Objective Remarks GENERAL: Alert, oriented 3, NAD. SKIN: Warm and dry. HEAD: Normocephalic. EYES: No scleral icterus. No injection or drainage. NECK: Supple, trachea midline. No JVD or lymphadenopathy. CARDIOVASCULAR: Regular rate and rhythm without murmurs, gallops, or rubs. RESPIRATORY: Breath sounds equal bilaterally. No accessory muscle use. GASTROINTESTINAL: Abdomen soft, non-tender, nondistended. MUSCULOSKELETAL: No cyanosis, or edema. Right knee shows no erythematous lesion , swelling is present and tender to palpation. BACK: Nontender without obvious deformity. No CVA tenderness. Procedures Right knee aspiration 01/03/2018. A/P Problem List: (1) Pancytopenia ICD Code: D61.818 - Other pancytopenia (2) Septic joint of right knee joint ICD Code: M00.9 - Pyogenic arthritis, unspecified (3) Hypotension ICD Code: I95.9 - Hypotension, unspecified (4) Depression ICD Code: F32.9 - Major depressive disorder, single episode, unspecified Status: Chronic (5) Liver cirrhosis ICD Code: K74.60 - Unspecified cirrhosis of liver Status: Chronic Assessment and Plan Mr. Parra is a 62-year-old male with a history of liver cirrhosis, pancytopenia who was admitted to the hospital due to possible septic joint of the right knee. He underwent a right knee aspiration on 01/03/2018. Orthopedic surgery also evaluated patient. Pancytopenia -Probably due to liver disease. Patient follows up with Dr. Saeed ( hematology oncologist) -We will consult hematology to get further recommendations with regards to pancytopenia. Possible right knee septic joint Bacteremia with E. Coli -Currently patient does not have any fever or chills. Cultures are pending. -Right knee aspiration fluid WBC count was less than 50,000. -Patient is currently on ceftriaxone 1 g every 24 hours and vancomycin. -Continue [place], acetaminophen for pain. Alcoholic Liver disease -No acute symptoms. Continue Lasix 20 mg daily, Protonix 40 mg daily. Will DC Toradol. Full code. SCDs. If prolonged hospitalization is expected, will consider pharmacological DVT prophylaxis. Estevan Haider DO Jan 04, 2018 08:39
[2018-01-04] MEDS: SODIUM CHLORIDE 0.9% FLUSH 10 ML FLUSH IV FLUSH SCH ×2 (09:00→21:00)
[2018-01-04] MEDS: SODIUM CHLOR 0.9% 1000 ML INJ 1,000 ML IV SCH (09:21)
[2018-01-04] MEDS: FUROSEMIDE 20 MG TAB PO SCH (10:09)
[2018-01-04] MEDS: PANTOPRAZOLE SOD 40 MG DELAYED RELEASE TAB PO SCH (10:09)
[2018-01-04] MEDS: SERTRALINE HCL 100 MG TAB PO SCH (10:09)
[2018-01-04] MEDS: FERROUS SULFATE 325 MG (65 MG ELEMENTAL IRON) TAB PO SCH ×2 (10:09→18:23)
[2018-01-04] MEDS: VANCOMYCIN INJ 1,250 MG in SODIUM CHLOR 0.9% 250 ML INJ 250 ML IV SCH ×2 (10:55→23:14)
[2018-01-04] MEDS ORDERED: cefTRIAXone INJ 1,000 MG in SODIUM CHLORIDE 0.9% INJ 100 ML IV SCH (11:00)
--- NOTE | 2018-01-04 19:44 | MB ---
cc: Petra Perez MD, Ruby Anne E MD Ahmed,Estevan MELENDEZ DATE: 01/04/2018 REFERRING PHYSICIAN: Dr. Estevan Haider. CHIEF COMPLAINT: Dr. Haider requests a consultation for Mr. Parra regarding pancytopenia. HISTORY OF PRESENT ILLNESS: Mr. Parra is a 61-year-old man, well known patient to Dr. Santiago Saeed, with history of cirrhosis, splenomegaly and pancytopenia. He is followed by Dr. Saeed at [facility]. He has had iron infusion and blood transfusion recently. Despite this, he came in with a decrease in hemoglobin. He denies any overt bleeding. Denies any melena or bright red blood per rectum. He does have a history of GI bleed. He describes Dr. Pyle having difficulty finding the source of bleed. On admission, he had pancytopenia with white blood cell count of 3.5, hemoglobin of 6.3, platelet count of 64,000. Review of the electronic medical record showed that his white count ranges from 2.5 to 7.6. His hemoglobin in 2017 was around 10-11 g/dL. More recent labs from [facility] were not available. His platelet counts have consistently been less than 100,000. He denies having fever; however, he was febrile when he came in. He was brought in because of swelling in the right knee, which began just several days ago. Blood cultures were obtained peripherally and gram-negative rods were noted. Final ID is still pending. He was receiving his second unit of blood at the time of the consultation. His review of system is significant for increased lower extremity edema on the right. He has had a left knee replacement. His right knee swelling is severe. It causes him a significant amount of pain. His abdominal girth has increased. Denies any chest pain or shortness of breath at present. He had fever, but was unaware of it. The rest of his review of systems is negative. PAST MEDICAL HISTORY: 1. Alcohol abuse. 2. Cirrhosis. 3. Portal hypertension. 4. Ascites. 5. Splenomegaly. 6. Depression. 7. Hypertension. 8. Peripheral neuropathy. 9. Restless leg syndrome. 10. Cholelithiasis. 11. Degenerative disk disease. 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 13. History of aspiration pneumonia with respiratory failure. PAST SURGICAL HISTORY: Back surgery, neck surgery, upper endoscopy and colonoscopy, paracentesis, eye surgery, spinal stimulator implant. FAMILY HISTORY: Significant for father who of chronic kidney disease. No family history of cancer. SOCIAL HISTORY: He is , lives with his . He quit smoking 3 years ago. He quit drinking 3 years ago. Denies any illicit drug use. ALLERGIES: NO KNOWN DRUG ALLERGIES. CURRENT MEDICATIONS: 1. Ceftriaxone. 2. Lasix. 3. Protonix. 4. Zoloft. 5. Tylenol p.r.n. 6. Vancomycin. 7. Ferrous sulfate. PHYSICAL EXAMINATION: VITAL SIGNS: Temperature 98.9, heart rate 80, respiratory rate 20, blood pressure 130/62, saturation 98%. GENERAL: Mr. Parra is an elderly, well-developed man. He looks chronically ill and tired. HEENT: His pupils are round, reactive to light and accommodation. Oropharynx is clear. NECK: Supple. Spider hemangiomata noted on the chest wall. LUNGS: Clear. CARDIOVASCULAR: Reveals normal rate and rhythm. ABDOMEN: Distention. No fluid wave noted. Midline lower abdominal scar infraumbilical is noted. LOWER EXTREMITIES: With asymmetry, right knee swelling. Right lower extremity swelling. Good pulses. Left knee scar post-knee replacement surgery. LABORATORY DATA: As described above. ASSESSMENT AND PLAN: Mr. Parra is a 62-year-old man, well known patient to Dr. Santiago Saeed, with history of alcoholic liver disease, cirrhosis and splenomegaly. He has subsequent pancytopenia due to hypersplenism. I concur with plan to proceed with blood transfusion. Our goal is to keep his hemoglobin above 7. Repeat CBC will be coordinated tomorrow. We will monitor closely for any acute gastrointestinal bleed. As discussed with the primary team, gastroenterology is consulted. No specific therapy is required for the leukopenia and the thrombocytopenia. Acute bleed may be consuming the platelet count. Furthermore, thrombocytopenia in part is due to the hypersplenism and underlying liver disease. I defer to gastroenterology for evaluation of gastrointestinal blood loss. It appears that he has had supportive treatment with iron and transfusions on an outpatient basis and yet he comes in with a hemoglobin of 6.3. Antibiotic therapy continues for Gram-negative valentino bacteremia. The source appears to be his left knee joint. He remains hemodynamically stable. He has been afebrile the last 24 hours. His questions were answered to his satisfaction. MD LAST Carreon/ , 07:10 PM , 07:42 PM
[2018-01-04] MEDS ORDERED: PHARMACY ORDERED LAB ONE (22:45)
[2018-01-05] VITALS: BP 119/57; PULSE 83; RESP 20; TEMP 99.3; O2SAT 97
[2018-01-05] MEDS: ACETAMINOPHEN/HYDROcodone 325 MG/5 MG TAB PO PRN ×3 (02:26→20:10)
[2018-01-05 04:00] VITALS: BP 117/61; PULSE 83; RESP 20; TEMP 99.6; O2SAT 98
[2018-01-05 06:41] LABS: AUTOMATED NEUTROPHIL # 4.2 TH/MM3 (1.8-7.7); BASOPHIL % 0.4 % (0.0-2.0); EOSINOPHIL # 0.1 TH/MM3 (0-0.4); EOSINOPHIL % 1.4 % (0.0-4.0); HEMATOCRIT 24.8 % (39.0-51.0); LYMPH % 7.1 % (9.0-44.0); LYMPHOCYTE # 0.3 TH/MM3 (1.0-4.8); MEAN CELL VOLUME 96.6 FL (80.0-100.0); MEAN CORPUSCULAR HEMOGLOBIN 31.3 PG (27.0-34.0); MEAN CORPUSCULAR HGB CONC 32.4 % (32.0-36.0); MEAN PLATELET VOLUME 8.6 FL (7.0-11.0); MONO % 4.1 % (0.0-8.0); MONOCYTE # 0.2 TH/MM3 (0-0.9); PLATELET COUNT 88 TH/MM3 (150-450); RED BLOOD COUNT 2.57 MIL/MM3 (4.50-5.90); RED CELL DISTRIBUTION WIDTH 17.6 % (11.6-17.2); WHITE BLOOD COUNT 4.8 TH/MM3 (4.0-11.0)
[2018-01-05 07:10] LABS: ALBUMIN 1.8 GM/DL (3.4-5.0); BICARBONATE 21.2 MEQ/L (21.0-32.0); CALCIUM 7.1 MG/DL (8.5-10.1); CALCIUM-PROTEIN CORRECTED 8.4 MG/DL (8.5-10.1); CREATININE 0.87 MG/DL (0.60-1.30); TOTAL BILIRUBIN ADULT 1.8 MG/DL (0.2-1.0); TOTAL PROTEIN 4.7 GM/DL (6.4-8.2)
[2018-01-05 07:31] LABS: TEARDROP RBCS 1+ (NORMAL)
[2018-01-05 07:50] VITALS: BP_SYST 124; BP_SYST 142; BP_DIAS 59; BP_DIAS 74; PULSE 100; PULSE 85; RESP 20; TEMP 96.5; TEMP 99.1; O2SAT 98
[2018-01-05] MEDS: SERTRALINE HCL 100 MG TAB PO SCH (08:14)
[2018-01-05] MEDS: PANTOPRAZOLE SOD 40 MG DELAYED RELEASE TAB PO SCH (08:14)
[2018-01-05] MEDS: FUROSEMIDE 20 MG TAB PO SCH (08:14)
[2018-01-05] MEDS: FERROUS SULFATE 325 MG (65 MG ELEMENTAL IRON) TAB PO SCH ×2 (08:14→17:22)
[2018-01-05] MEDS: SODIUM CHLORIDE 0.9% FLUSH 10 ML FLUSH IV FLUSH SCH ×2 (08:19→20:10)
[2018-01-05] MEDS: cefTRIAXone INJ 2,000 MG in SODIUM CHLORIDE 0.9% INJ 100 ML IV SCH (10:12)
[2018-01-05 11:50] VITALS: BP 139/71; PULSE 87; RESP 20; TEMP 100.4; O2SAT 97
[2018-01-05 15:38] VITALS: BP 135/64; PULSE 83; RESP 20; TEMP 99.6
--- NOTE | 2018-01-05 15:49 | HHI.PR ---
Subjective Remarks Follow-up for pancytopenia, right knee swelling and arthritis. Patient is doing well. No fever, chills. Still has significant right knee pain and swelling. Also complains of abd distention and some pain. Objective Vitals Vital Signs Date Time Temp Pulse Resp B/P (MAP) Pulse Ox O2 Delivery O2 Flow Rate FiO2 01/05/18 12:53 18 01/05/18 11:50 100.4 87 20 139/71 (93) 97 01/05/18 07:50 99.1 85 20 124/59 (80) 98 01/05/18 07:50 96.5 100 20 142/74 (96) 01/05/18 04:00 99.6 83 20 117/61 (79) 98 01/05/18 00:00 99.3 83 20 119/57 (77) 97 01/04/18 22:05 100.5 86 20 129/68 99 01/04/18 20:00 100.7 87 20 125/60 (81) 98 01/04/18 18:25 98.9 80 20 130/62 98 01/04/18 18:09 98.0 75 20 133/63 98 01/04/18 17:20 98.9 83 16 126/59 (81) 98 01/04/18 16:37 98.8 80 18 115/70 99 I/O 01/04/18 01/04/18 01/04/18 01/05/18 01/05/18 01/05/18 07:00 15:00 23:00 07:00 15:00 23:00 Intake Total 1200 ml 520 ml 2350 ml 240 ml Output Total 125 ml 2 ml Balance 1075 ml 520 ml 2350 ml 238 ml Intake Oral 500 ml 1000 ml 240 ml IV Total 1200 ml Packed Cells 1150 ml Blood Product IV Normal Saline Flush 20 ml 200 ml Output Urine Total 125 ml Stool Total 1 ml Emesis 1 ml # Voids 1 3 3 # Bowel Movements 0 1 Result Diagram: 01/05/18 0545 01/05/18 0545 Imaging Last Impressions Knee X-Ray 01/03/18 0000 Signed Impressions: CONCLUSION: Large joint effusion with mild degenerative changes in the medial lateral layo rtments. No fracture identified. Objective Remarks GENERAL: Alert, oriented 3, NAD. SKIN: Warm and dry. HEAD: Normocephalic. EYES: No scleral icterus. No injection or drainage. NECK: Supple, trachea midline. No JVD or lymphadenopathy. CARDIOVASCULAR: Regular rate and rhythm without murmurs, gallops, or rubs. RESPIRATORY: Breath sounds equal bilaterally. No accessory muscle use. GASTROINTESTINAL: Abdomen soft, non-tender, Mildly distended. MUSCULOSKELETAL: No cyanosis, or edema. Right knee shows no erythematous lesion , swelling is present and tender to palpation. BACK: Nontender without obvious deformity. No CVA tenderness. Procedures Right knee aspiration 01/03/2018. A/P Problem List: (1) Pancytopenia ICD Code: D61.818 - Other pancytopenia (2) Septic joint of right knee joint ICD Code: M00.9 - Pyogenic arthritis, unspecified (3) Hypotension ICD Code: I95.9 - Hypotension, unspecified (4) Depression ICD Code: F32.9 - Major depressive disorder, single episode, unspecified Status: Chronic (5) Liver cirrhosis ICD Code: K74.60 - Unspecified cirrhosis of liver Status: Chronic Assessment and Plan Mr. Parra is a 62-year-old male with a history of liver cirrhosis, pancytopenia who was admitted to the hospital due to possible septic joint of the right knee. He underwent a right knee aspiration on 01/03/2018. Orthopedic surgery also evaluated patient. Pancytopenia -Probably due to liver disease. Patient follows up with Dr. Saeed ( hematology oncologist) -Heme/Onc is following. -Patient has a GI doctor in [place] and will follow up with Dr. Pyle (GI) upon discharge. Possible right knee septic joint Bacteremia with E. Coli -Currently patient does not have any fever or chills. Knee fluid culture is also growing E. Coli. -Right knee aspiration fluid WBC count was less than 50,000. -Patient is currently on ceftriaxone 2g Qday. -Continue [place], acetaminophen for pain. -Discussed with Dr. Garces. - Anesthesia expressed concern to do I&D in [place]. - We will transfer patient to the main hospital. NPO midnight for I&D in the AM. Alcoholic Liver disease -US guided paracentesis today. -Continue Lasix 20mg Qday. He will likely need Spironolactone as well. Full code. SCDs. If prolonged hospitalization is expected, will consider pharmacological DVT prophylaxis after I&D tomorrow. Estevan Haider DO Jan 05, 2018 15:49
[2018-01-06] VITALS (8 sets, daily range): BP systolic 114–158; BP diastolic 58–69; PULSE 78–88; RESP 16–18; TEMP 97.8–99.8; O2SAT 94–99
[2018-01-06] MEDS ORDERED: METOPROLOL TARTRATE 25 MG TAB PO PRN (03:30)
[2018-01-06] MEDS ORDERED: POVIDONE IODINE 5% (ANTISEPSIS KIT) 4 APPLICATIONS EACH NARE PRN (03:30)
[2018-01-06] MEDS ORDERED: SODIUM CHLORID 0.9% 500 ML IV PRN (03:30)
[2018-01-06] MEDS ORDERED: LACTATED RINGER'S 1000 ML IV PRN (03:30)
[2018-01-06] MEDS ORDERED: CHLORHEXIDINE GLUCONATE 2 % 1 PACK (2 CLOTHS) TOPICAL PRN (03:30)
[2018-01-06] MEDS: SERTRALINE HCL 100 MG TAB PO SCH (08:05)
[2018-01-06] MEDS: FUROSEMIDE 20 MG TAB PO SCH (08:07)
[2018-01-06] MEDS: FERROUS SULFATE 325 MG (65 MG ELEMENTAL IRON) TAB PO SCH ×2 (08:07→17:55)
[2018-01-06] MEDS: PANTOPRAZOLE SOD 40 MG DELAYED RELEASE TAB PO SCH (08:08)
[2018-01-06] MEDS ORDERED: ALBUMIN 25% INJ 0 ML IV ONE (09:00)
[2018-01-06] MEDS ORDERED: LIDOCAINE HCL 1% PF 30 ML VIAL ONE (09:27)
[2018-01-06] MEDS: SODIUM CHLORIDE 0.9% FLUSH 10 ML FLUSH IV FLUSH SCH ×2 (10:17→20:04)
[2018-01-06] MEDS: cefTRIAXone INJ 2,000 MG in SODIUM CHLORIDE 0.9% INJ 100 ML IV SCH (10:17)
[2018-01-06] MEDS: LACTULOSE SYRUP 20 GM/30 ML CUP PO SCH ×4 (10:17→20:05)
[2018-01-06] MEDS: ACETAMINOPHEN/HYDROcodone 325 MG/5 MG TAB PO PRN (10:18)
[2018-01-06 10:38] LABS: PERITONEAL HISTIOCYTES 26 %; PERITONEAL LYMPHS 24 %; PERITONEAL MESOTHELIAL 43 %; PERITONEAL MONOS 2 %; PERITONEAL POLYS(SEGS) 5 %
[2018-01-06 10:44] LABS: PERITONEAL RBC 186 /MM3 (0-0)
[2018-01-06 11:25] LABS: ALBUMIN 2.1 GM/DL (3.4-5.0); AST (GOT) 32 U/L (15-37); BICARBONATE 19.8 MEQ/L (21.0-32.0); BLOOD UREA NITROGEN 23 MG/DL (7-18); CHLORIDE 114 MEQ/L (98-107); CREATININE 0.87 MG/DL (0.60-1.30); GLOMERULAR FILTRATION RATE 89 ML/MIN (>89); GLUCOSE,RANDOM 126 MG/DL (74-106); SODIUM (NA) 145 MEQ/L (136-145)
[2018-01-06 11:26] LABS: ALT (GPT) 20 U/L (12-78)
[2018-01-06 11:28] LABS: ALKALINE PHOSPHATASE 113 U/L (45-117); TOTAL BILIRUBIN ADULT 1.3 MG/DL (0.2-1.0); TOTAL PROTEIN 5.3 GM/DL (6.4-8.2)
--- NOTE | 2018-01-06 11:43 | PD.ORT.PN ---
Subjective Subjective Remarks I have reviewed the record. I have discussed the case with Dr. Garces. She is unavailable today. The patient is a candidate to consider irrigation and debridement with an arthrotomy of the right knee for infection. Objective Vitals Vital Signs Date Time Temp Pulse Resp B/P (MAP) Pulse Ox O2 Delivery O2 Flow Rate FiO2 01/06/18 09:26 99.0 86 18 127/67 (87) 98 01/06/18 09:06 99.8 88 18 132/65 (87) 01/06/18 08:20 99.5 86 16 127/64 (85) 98 01/06/18 07:53 99.1 88 18 137/66 (89) 97 01/06/18 03:25 99.0 84 16 158/69 (98) 99 01/06/18 00:00 98.9 82 18 114/59 (77) 97 01/05/18 15:38 99.6 83 20 135/64 (87) 01/05/18 12:53 18 01/05/18 11:50 100.4 87 20 139/71 (93) 97 I/O 01/05/18 01/05/18 01/05/18 01/06/18 01/06/18 01/06/18 06:59 14:59 22:59 06:59 14:59 22:59 Intake Total 240 ml 357 ml 100 ml Output Total 2 ml 300 ml Balance 238 ml 57 ml 100 ml Intake Oral 240 ml 357 ml IV Total 100 ml Output Urine Total 300 ml Stool Total 1 ml Emesis 1 ml # Voids 3 4 1 # Bowel Movements 2 1 Result Diagram: 01/05/18 0545 01/06/18 0938 Objective Remarks The right knee shows a moderate effusion. Limited warmth. No redness. Pain with range of motion. The contralateral left knee has a well-healed incision and evidence of a previous knee replacement surgery Assessment & Plan Assessment and Plan Septic arthritis of the right knee, E. coli. History of rheumatoid arthritis. History of left total knee replacement arthroplasty. PLAN: Surgery: Arthrotomy of the right knee with irrigation and debridement. Continue IV antibiotics per infectious disease. Consent: There are risks with surgery including ongoing infection, bleeding, loss of motion, need for further surgery, neurologic or vascular injury. The patient understands these issues and wishes to proceed forward with surgery as outlined above Mervin Fuentes MD 21, 2018 11:43
[2018-01-06] MEDS ORDERED: GENTAMICIN SULFATE 80 MG/2 ML VIAL ONE (12:13)
[2018-01-06] MEDS ORDERED: ACETAMINOPHEN 1000 MG/100 ML 100 ML IV ONE (12:45)
[2018-01-06] MEDS ORDERED: FAMOTIDINE 20 MG/2 ML VIAL ONE (12:45)
[2018-01-06] MEDS ORDERED: MIDAZOLAM HCL 2 MG/2 ML VIAL ONE (12:45)
[2018-01-06] MEDS ORDERED: ceFAZolin 2 GM PREMIX 0 ML ONE (12:54)
[2018-01-06] MEDS ORDERED: VANCOMYCIN HCL 1000 MG VIAL ONE (12:54)
[2018-01-06] MEDS ORDERED: KETAMINE HCL 500 MG/10 ML VIAL ONE (13:09)
[2018-01-06] MEDS ORDERED: PROPOFOL 500 MG/50 ML INJ 50 ML ONE (13:09)
--- NOTE | 2018-01-06 13:41 | PQ ---
Physician Query Response Document PATIENT: GOYO STONE : 1955 ADMIT DATE: 01/03/2018 1:38 PM DISCH DATE: RESPONDING PROVIDER #: [email or web address] QUERY TEXT: CDS Clarification Acute posthemorrhagic anemia in the setting of H Other explanation of clinical findings. Unable to determine (no explanation for clinical findings). The patient's Clinical Indicators include: The medical record reflects the following clinical findings, treatment, and risk factors. * Clinical Indicators: H * Risk Factors:Thrombocytopenia, pancytopenia- Chronic 2nd to liver failure * Treatment: Transfusions of 2 units PRBC, GI and Hemotology consults Please clarify and document your clinical opinion in the progress notes and discharge summary includi ng the definitive and/or presumptive diagnosis (suspected or probable), related to the above clinical findings. Please include clinical findings supporting your diagnosis. Thank you, Philomena Alexander : CDS/RN ext. [phone] Query created by: Philomena Alexander on 01/05/2018 10:49 AM RESPONSE TEXT: Acute anemia - possibly due to Myelodysplastic syndrome (Patient had pancytopenia) Electronically signed by: Brandon Haider DO 01/06/2018 1:37 PM
--- NOTE | 2018-01-06 13:44 | PD.CONS ---
HPI History of Present Illness This is a 62 year old M with PMH significant for cirrhosis secondary to ETOH, gastric antral vascular ectasia, esophageal varices, history of GIB who is followed by GI Dr. Pyle in [facility] and chronic pancytopenia being managed by Dr. Saeed. Pt presented to the ER three days ago with complaints of R knee pain and swelling, aspiration revealed septic arthritis of right knee, pt to OR for arthrotomy of the right knee with irrigation and debridement today. Our service has been consulted to evaluate pt for anemia wit possible GI source. Pt just returned from surgery, history obtained through at bedside. States pt always has black stools because he is on iron supplements. Denies any change in stool consistency or BRB in stool. States pt has not been having any nausea, vomiting, or abdominal pain. Pts is not interested in GI work up while at [place]. States Dr. Pyle was planning on a series of four EGDs, one was scheduled for tomorrow but had to be cancelled because of pts current hospitalization, she reports she will make an appt when the pt is discharged. States they are not interested in EGD while inpatient. Records reviewed from [facility], last EGD on December 03 of this year --> Grade 1 distal esophageal varices, gastroparesis with retained food, inflammatory appearing antral polypoid lesions, portal gastropathy, and active oozing of blood involving the gastric body S/P APC. Pt with known cirrhosis secondary to ETOH, currently on Lasix, Aldactone, and Lactulose. Last ETOH drink was 2 years ago, he is currently not on a list for liver transplant. Pt also with known history of pancytopenia being managed by Dr. Saeed, last note on December 17 which states pancytopenia secondary to splenomegaly and cirrhosis, his platelet count fluctuates between 70 and 90,000. Also noted pt to have chronic anemia, and despite recent EGD as noted above, possibility of continued GIB. Despite iron supplements pt is not sustaining hgb. Dr. Saeed also noted possibly starting Injectafer. Last blood transfusion noted on December 14 and pt has had 2 units since admission. (Leoanrda ConnP) PFSH Past Medical History Pancytopenia Portal hypertension Edema Depression/anxiety History of alcohol dependency- last ETOH 2 years ago GAVE Esophageal varices Past Surgical History Eye surgery Neurostimulator currently and used Back surgery Tonsillectomy Left knee replacement EGD Colonoscopy (Leonarda Conn) Coded Allergies: No Known Allergies (Unverified Allergy, Unknown, 01/03/18) Family History Parents in their 60s Father had renal disease and COPD Children are alive and well Social History Quit alcohol dependency issues in 2016 No tobacco Smokes marijuana Lives with his (Leonarda Conn) Review of Systems Gastrointestinal: COMPLAINS OF: Black stools, DENIES: Abdominal pain, Constipation, Diarrhea, Nausea, Vomiting (Leonarda Conn) GI Exam Vitals I&O Vital Signs Date Time Temp Pulse Resp B/P (MAP) Pulse Ox O2 Delivery O2 Flow Rate FiO2 01/06/18 09:26 99.0 86 18 127/67 (87) 98 01/06/18 09:06 99.8 88 18 132/65 (87) 01/06/18 08:20 99.5 86 16 127/64 (85) 98 01/06/18 07:53 99.1 88 18 137/66 (89) 97 01/06/18 03:25 99.0 84 16 158/69 (98) 99 01/06/18 00:00 98.9 82 18 114/59 (77) 97 01/05/18 15:38 99.6 83 20 135/64 (87) I/O 01/05/18 01/05/18 01/05/18 01/06/18 01/06/18 01/06/18 07:00 15:00 23:00 07:00 15:00 23:00 Intake Total 240 ml 357 ml 100 ml Output Total 2 ml 300 ml Balance 238 ml 57 ml 100 ml Intake Oral 240 ml 357 ml IV Total 100 ml Output Urine Total 300 ml Stool Total 1 ml Emesis 1 ml # Voids 3 4 1 # Bowel Movements 2 1 Imaging Last Impressions Knee X-Ray 01/03/18 0000 Signed Impressions: CONCLUSION: Large joint effusion with mild degenerative changes in the medial lateral layo rtments. No fracture identified. Laboratory Test 01/05/18 18:55 01/06/18 08:40 01/06/18 09:38 Total Protein 5.6 GM/DL 5.3 GM/DL Peritoneal Fluid WBC 216 /MM3 Peritoneal Fluid RBC 186 /MM3 Peritoneal Fluid Neutrophils 5 % Peritoneal Fluid Lymphocytes 24 % Peritoneal Fluid Monocytes 2 % Peritoneal Fluid Histiocytes 26 % Peritoneal Fluid Mesothelial Cells 43 % Blood Urea Nitrogen 23 MG/DL Creatinine 0.87 MG/DL Random Glucose 126 MG/DL Albumin 2.1 GM/DL Calcium Level 8.0 MG/DL Alkaline Phosphatase 113 U/L Aspartate Amino Transf (AST/SGOT) 32 U/L Alanine Aminotransferase (ALT/SGPT) 20 U/L Total Bilirubin 1.3 MG/DL Sodium Level 145 MEQ/L Potassium Level 3.5 MEQ/L Chloride Level 114 MEQ/L Carbon Dioxide Level 19.8 MEQ/L Anion Gap 11 MEQ/L Estimat Glomerular Filtration Rate 89 ML/MIN Date/Time Source Procedure Growth Status 01/03/18 09:45 Blood Peripheral Aerobic Blood Culture - Preliminary Escherichia Coli Resulted 01/03/18 09:45 Anaerobic Blood Culture - Preliminary Escherichia Coli Resulted 01/04/18 11:10 Fluid Synovial Fluid Gram Stain - Final Complete 01/04/18 11:10 Body Fluid Culture - Final Escherichia Coli Complete Physical Examination HEENT: Normocephalic; atraumatic CHEST: Even/unlabored CARDIAC: RRR ABDOMEN: Soft, nondistended, nontender; bowel sounds active ELEVATOR ATTENDANT: Alert and oriented (Leonarda Conn) Assessment and Plan Plan Assessment: - Anemia- history of pancytopenia- GI consulted to rule out possible GI source. Pt always has black stools because he is on iron supplements. Denies change in stool consistent, BRB in stool, abdominal pain, nausea, and vomiting. History of GAVE, esophageal varices, and previous GIB. Records reviewed from [facility], last EGD on December 03 of this year --> Grade 1 distal esophageal varices, gastroparesis with retained food, inflammatory appearing antral polypoid lesions, portal gastropathy, and active oozing of blood involving the gastric body S/P APC. Per pts at bedside, Dr. Pyle planning on doing series of 4 EGDs, one was planned for tomorrow but had to be cancelled because pt is hospitalized Pts states they are not interested in EGD or GI work up while in the hospital and they plan on following up with their GI Dr. Pyle after DC Also followed by Dr. Saeed hematology who notes pt to have chronic anemia, and despite recent EGD as noted above, possibility of continued GIB. Despite iron supplements pt is not sustaining hgb. Dr. Saeed also noted possibly starting Injectafer. Last blood transfusion noted on December 14 and pt has had 2 units since admission. Pt also with known history of pancytopenia being managed by Dr. Saeed, last note on December 17 which states pancytopenia secondary to splenomegaly and cirrhosis, his platelet count fluctuates between 70 and 90,000 - Cirrhosis secondary to ETOH abuse Currently on Lasix, Aldactone, and Lactulose. Last ETOH drink was 2 years ago , he is currently not on a list for liver transplant - Septic arthritis S/P arthrotomy of the right knee with irrigation and debridement today Plan: Pt and pts not interested in GI work up while inpatient at [place] Discussed EGD with her and she states pt will follow up with Dr. Pyle after DC Pts states that she told the doctor she did not want GI consulted Our service will sign off, please reconsult as needed Pt has been seen and examined by myself and Dr. Atkins and this note is written on her behalf (Leonarda Conn) Physician Comments seen, examined agree with above (Monserrat Atkins MD) Leonarda Conn Jan 06, 2018 13:44 Monserrat Atkins MD Jan 06, 2018 18:33
[2018-01-06] MEDS ORDERED: Post-op Orders (for Pharmacy) XX ONE (14:00)
[2018-01-06] MEDS ORDERED: DO NOT ADM ANY ANTICOAGULANT DRUGS PRN (14:00)
[2018-01-06] MEDS ORDERED: diphenhydrAMINE HCL 25 MG CAP PO PRN (14:00)
--- NOTE | 2018-01-06 14:10 | PD.OP ---
cc: Mervin Fuentes MD Operative Report Date of Surgery: Jan 06, 2018 Preoperative Diagnosis: Pyogenic arthritis right knee Postoperative Diagnosis: Same Procedure: Arthrotomy of the right knee. Irrigation and debridement right knee. Anesthesia: General Surgeon: Mervin Fuentes Business And Financial Counsel(s): ALONSO Junior Operation and Findings: Note: Sandie Junior PA-C was present during the entire surgical procedure as my assistant store manager operations. In my medical opinion her skill and care was necessary for the proper management of this patient. EBL: Minimal. Tourniquet time 20 minutes. Cultures: Swab culture from fluid of right knee. The patient was brought to the operating room and anesthetized supine position. The right leg was scrubbed with alcohol followed by Hibiclens followed ChloraPrep and draped sterilely. A timeout was done. An arthrotomy was made anterior and laterally. There was a large effusion. A culture was sent. This is drained of about 500 cc of fluid. The wound was irrigated copiously. The synovium was debrided. A deep drain was brought through separate stab incision. The arthrotomy was repaired with interrupted 2- 0 nylon. The drain was sutured in. The wound was dressed sterilely. The patient was awakened and taken to the recovery room in satisfactory condition Complication: There was no apparent complication Mervin Fuentes MD Jan 06, 2018 14:10
--- NOTE | 2018-01-06 14:25 | PD.ONC.PN ---
Subjective Subjective Remarks Still has pain in the right knee. Awaiting I&D today. Denies any chest pain or shortness of breath. Denies any melena or hematochezia. Objective Data Date Time Temp Pulse Resp B/P (MAP) Pulse Ox O2 Delivery O2 Flow Rate FiO2 01/06/18 09:26 99.0 86 18 127/67 (87) 98 01/06/18 09:06 99.8 88 18 132/65 (87) 01/06/18 08:20 99.5 86 16 127/64 (85) 98 01/06/18 07:53 99.1 88 18 137/66 (89) 97 01/06/18 03:25 99.0 84 16 158/69 (98) 99 01/06/18 00:00 98.9 82 18 114/59 (77) 97 01/05/18 15:38 99.6 83 20 135/64 (87) 01/06/18 01/06/18 01/06/18 07:00 15:00 23:00 Intake Total 100 ml Balance 100 ml Result Diagram: 01/05/18 0545 01/06/18 0938 Laboratory Results Laboratory Tests Test 01/05/18 18:55 01/06/18 08:40 01/06/18 09:38 Total Protein 5.6 GM/DL 5.3 GM/DL Peritoneal Fluid WBC 216 /MM3 Peritoneal Fluid RBC 186 /MM3 Peritoneal Fluid Neutrophils 5 % Peritoneal Fluid Lymphocytes 24 % Peritoneal Fluid Monocytes 2 % Peritoneal Fluid Histiocytes 26 % Peritoneal Fluid Mesothelial Cells 43 % Blood Urea Nitrogen 23 MG/DL Creatinine 0.87 MG/DL Random Glucose 126 MG/DL Albumin 2.1 GM/DL Calcium Level 8.0 MG/DL Alkaline Phosphatase 113 U/L Aspartate Amino Transf (AST/SGOT) 32 U/L Alanine Aminotransferase (ALT/SGPT) 20 U/L Total Bilirubin 1.3 MG/DL Sodium Level 145 MEQ/L Potassium Level 3.5 MEQ/L Chloride Level 114 MEQ/L Carbon Dioxide Level 19.8 MEQ/L Anion Gap 11 MEQ/L Estimat Glomerular Filtration Rate 89 ML/MIN Culture Results Microbiology Date/Time Source Procedure Growth Status 01/04/18 11:10 Fluid Synovial Fluid Gram Stain - Final Complete 01/04/18 11:10 Body Fluid Culture - Final Escherichia Coli Complete Administered Medications Medications (Trade) Dose Ordered Sig/Joann Route PRN Reason Start Time Stop Time Status Last Admin Dose Admin Sodium Chloride (NS Flush) 2 ml BID IV FLUSH 01/03/18 21:00 01/06/18 10:17 Acetaminophen (Tylenol) 650 mg Q4H PRN PO TEMP > 100.4 01/03/18 13:30 01/05/18 20:10 Ferrous Sulfate (Ferrous Sulfate) 325 mg BIDPC PO 01/03/18 18:00 01/06/18 08:07 Furosemide (Lasix) 20 mg DAILY PO 01/04/18 09:00 01/06/18 08:07 Acetaminophen/ Hydrocodone Bitart ([place] 5-325 Mg) 1 tab Q6H PRN PO PAIN 01/03/18 13:45 01/06/18 10:18 Pantoprazole Sodium (Protonix) 40 mg DAILY PO 01/04/18 09:00 01/06/18 08:08 Sertraline HCl (Zoloft) 200 mg DAILY PO 01/04/18 09:00 01/06/18 08:05 Ceftriaxone Sodium 2000 mg/ Sodium Chloride 100 ml @ 200 mls/hr Q24H IV 01/05/18 10:00 01/06/18 10:17 Lactated Ringer's 1,000 ml @ 30 mls/hr Q24H PRN IV SEE LABEL COMMENTS 01/06/18 03:30 01/09/18 03:29 01/06/18 11:45 Lactulose (Lactulose Liq) 30 ml QID PO 01/06/18 09:00 01/06/18 10:17 Objective Remarks GENERAL: Well-nourished, well-developed patient. SKIN: Warm and dry. Pale. HEAD: Normocephalic. EYES: No scleral icterus. No injection or drainage. NECK: Supple, trachea midline. No JVD or lymphadenopathy. LYMPHATIC: No adenopathy. CARDIOVASCULAR: Regular rate and rhythm without murmurs. RESPIRATORY: Breath sounds equal bilaterally. No accessory muscle use. GASTROINTESTINAL: Abdomen soft, non-tender, nondistended. EXTREMITIES: No cyanosis, or edema. Right knee is swollen. Increased warmth in the right lower extremity. No calf tenderness. MUSCULOSKELETAL: Adequate muscle tone. NEUROLOGICAL: No obvious focal deficit. Awake, alert, and oriented x3. PSYCHIATRIC: Appropriate mood and affect; insight and judgment normal. Assessment/Plan Problem List: (1) Pancytopenia ICD Codes: D61.818 - Other pancytopenia Status: Chronic Plan: Due to liver cirrhosis and splenomegaly. He had 2 units of packed red blood cell transfusion and hemoglobin trended back up to 8. WBC and platelet count are quite stable. No active bleeding noted at this time. Check stool occult blood test. (2) Liver cirrhosis ICD Codes: K74.60 - Unspecified cirrhosis of liver Status: Chronic (3) Portal hypertension ICD Codes: K76.6 - Portal hypertension Status: Chronic Plan: He has splenomegaly. (4) Septic joint of right knee joint ICD Codes: M00.9 - Pyogenic arthritis, unspecified Status: Acute Plan: Await I&D. Joint effusion culture grew E. coli. He is on antibiotic per primary team. Plan 1. Check stool occult blood test. 2. Monitor CBC. Transfuse if hemoglobin less than 7. Santiago Saeed MD Jan 06, 2018 14:25
[2018-01-06] MEDS ORDERED: *morphine SULFATE 8 MG/ML PERIprocedure ONLY ONE (14:38)
[2018-01-06] MEDS: LACTATED RINGER'S 1000 ML INJ 1,000 ML IV SCH ×2 (15:37→23:59)
--- NOTE | 2018-01-06 16:02 | PD.RAD ---
Post US Procedure Prog Note Pre Procedure Diagnosis: (1) Ascites (2) Liver cirrhosis Post Procedure Diagnosis: (1) Ascites Procedure Date: Jan 06, 2018 Supervising Radiologist: Jae Ramires Estimated blood loss: none Anesthesia: Local Plan of Activity Patient to Unit: Nursing Unit Patient Condition: Good See PACS Report for procedural detail/treatment Drainage Procedure Procedure 1 Imaging Guidance: Ultrasound Side: Right Procedure Type: Paracentesis Fluid Removal (CCs): 3000 Fluid Description: Clear, Yellow Plan return to floor. Jae Ramires MD Jan 06, 2018 16:02
--- NOTE | 2018-01-06 16:03 | RADRPT ---
EXAM DATE: 01/06/2018 11:26 AM EDT AGE/SEX: 62 years / Male INDICATIONS: Ascites. CLINICAL DATA: This is the patient's initial encounter. Patient reports that signs and symptoms have been present for > 1 year and indicates a pain score of 6/10. MEDICAL/SURGICAL HISTORY: Hypertension. Gastroesophageal reflux disease. Glasses. Tremors. Res tless leg syndrome. Left pleural effusion. Tachycardia. Bilateral inguinal hernia. GI bleed. Hepatic encephalopathy. Arthritis. Depression. Anxiety. Sepsis. Aemia. Tonsillectomy. Bilateral cataract bryan chava. Back surgery. Neck surgery. Left knee replacement. COMPARISON: No prior exams available for comparison. FLUID: Total volume of 3,000 cc of clear, yellow fluid was removed. Fluid was sent to lab for ordered studie s. . . TECHNIQUE: Ultrasound guidance for abdominal paracentesis. Paracentesis. The risks, benefits, and alternatives to ultrasound guided paracentesis were explained to the patient in detail including the risk of bleeding and infection. Written and verbal informed consent was obt ained. With the patient on the ultrasound table, ultrasound imaging was used to select the most appropriate approach for paracentesis. Overlying skin was prepped and draped in the usual sterile fashion and wi th a local anesthetic, a dermatotomy was made with an 11 blade scalpel. A 6 [place] [id number]-[id number] ca theter was introduced into the peritoneal cavity and fluid was collected. Post procedure scanning reveals no hematoma or other complication. The patient tolerated the procedu re well and left the ultrasound suite in stable condition. CONCLUSION: Uncomplicated paracentesis, as above. Electronically signed by: Jae Ramires MD 01/06/2018 4:02 PM EDT
[2018-01-06 17:03] LABS: AUTOMATED NEUTROPHIL # 3.3 TH/MM3 (1.8-7.7); BASOPHIL % 0.7 % (0.0-2.0); EOSINOPHIL % 0.4 % (0.0-4.0); HEMATOCRIT 23.2 % (39.0-51.0); HEMOGLOBIN 7.6 GM/DL (13.0-17.0); LYMPH % 5.5 % (9.0-44.0); LYMPHOCYTE # 0.2 TH/MM3 (1.0-4.8); MEAN CELL VOLUME 95.4 FL (80.0-100.0); MEAN CORPUSCULAR HEMOGLOBIN 31.1 PG (27.0-34.0); MEAN CORPUSCULAR HGB CONC 32.6 % (32.0-36.0); MEAN PLATELET VOLUME 8.7 FL (7.0-11.0); MONO % 3.1 % (0.0-8.0); MONOCYTE # 0.1 TH/MM3 (0-0.9); NEUT % 90.3 % (16.0-70.0); PLATELET COUNT 92 TH/MM3 (150-450); RED BLOOD COUNT 2.43 MIL/MM3 (4.50-5.90); WHITE BLOOD COUNT 3.6 TH/MM3 (4.0-11.0)
--- NOTE | 2018-01-06 17:41 | HHI.PR ---
Subjective Remarks Patient seen this afternoon After surgery. Denies any chest pain or shortness of breath. Denies nausea or vomiting. Pain is controlled. Objective Vital Signs Date Time Temp Pulse Resp B/P (MAP) Pulse Ox O2 Delivery O2 Flow Rate FiO2 01/06/18 14:15 97.8 78 18 99/55 (70) 97 Room Air 01/06/18 09:26 99.0 86 18 127/67 (87) 98 01/06/18 09:06 99.8 88 18 132/65 (87) 01/06/18 08:20 99.5 86 16 127/64 (85) 98 01/06/18 07:53 99.1 88 18 137/66 (89) 97 01/06/18 03:25 99.0 84 16 158/69 (98) 99 01/06/18 00:00 98.9 82 18 114/59 (77) 97 I/O 01/05/18 01/05/18 01/05/18 01/06/18 01/06/18 01/06/18 07:00 15:00 23:00 07:00 15:00 23:00 Intake Total 240 ml 357 ml 700 ml 840 ml Output Total 2 ml 300 ml 20 ml Balance 238 ml 57 ml 680 ml 840 ml Intake Oral 240 ml 357 ml IV Total 100 ml 840 ml Other 600 ml Output Urine Total 300 ml Stool Total 1 ml Emesis 1 ml Estimated Blood Loss 20 ml # Voids 3 4 1 # Bowel Movements 2 1 Result Diagram: 01/06/18 1640 01/06/18 0938 Objective Remarks GENERAL: patient sitting up in bed. Appears comfortable. SKIN: Warm and dry. HEAD: Normocephalic. EYES: No scleral icterus. No injection or drainage. NECK: Supple, trachea midline. No JVD or lymphadenopathy. CARDIOVASCULAR: Regular rate and rhythm without murmurs, gallops, or rubs. RESPIRATORY: Breath sounds equal bilaterally. No accessory muscle use. GASTROINTESTINAL: Abdomen soft, non-tender, nondistended. MUSCULOSKELETAL: No cyanosis, or edema. postoperative right knee not examined. Peripheral perfusion is intact. BACK: Nontender without obvious deformity. No CVA tenderness. A/P Assessment and Plan Mr. Parra is a 62-year-old male with a history of liver cirrhosis, pancytopenia who was admitted to the hospital due to possible septic joint of the right knee. He underwent a right knee aspiration on 01/03/2018. Orthopedic surgery also evaluated patient. //Pancytopenia -Probably due to liver disease. Patient follows up with Dr. Saeed ( hematology oncologist) -Heme/Onc is following. -Patient has a GI doctor in [place] and will follow up with Dr. Pyle (GI) upon discharge. = Hemoglobin 7.6. Patient has gastropathy which requires argon laser. Family does not wish to have GI evaluation here. Will follow up with GI as outpatient. //Possible right knee septic joint Bacteremia with E. Coli -Currently patient does not have any fever or chills. Knee fluid culture is also growing E. Coli. -Right knee aspiration fluid WBC count was less than 50,000. -Patient is currently on ceftriaxone 2g Qday. -Continue [place], acetaminophen for pain. -Discussed with Dr. Garces. - Anesthesia expressed concern to do I&D in [place]. - We will transfer patient to the main hospital. NPO midnight for I&D in the AM. = Repeat blood cultures. //Alcoholic Liver disease -US guided paracentesis today. -Continue Lasix 20mg Qday. He will likely need Spironolactone as well. = Ammonia 95. Started on lactulose. Full code. SCDs. Discharge Planning cont inpt Miguel English MD Jan 06, 2018 17:41
[2018-01-06] MEDS: CALCIUM/VITAMIN D 250 MG/125 U TAB PO SCH (17:55)
[2018-01-06 17:59] LABS: OVALOCYTES 1+ (NORMAL)
--- NOTE | 2018-01-06 18:35 | EKG ---
Date Performed: 01/06/2018 Time Performed: 03:31:24 PTAGE: 62 years EKG: Sinus rhythm MINIMAL ST DEPRESSION BORDERLINE ECG Since the PREVIOUS TRACING , no significant change noted PREVIOUS TRACIN06/04/201704.08. DOCTOR: Cheyenne Carver Interpretating Date/Time 01/06/2018 18:33:46
[2018-01-07] VITALS (7 sets, daily range): BP systolic 119–161; BP diastolic 58–75; PULSE 68–95; RESP 16–20; TEMP 97.8–98.4; O2SAT 94–98
[2018-01-07 06:28] LABS: AUTOMATED NEUTROPHIL # 3.2 TH/MM3 (1.8-7.7); BASOPHIL % 0.4 % (0.0-2.0); EOSINOPHIL % 0.1 % (0.0-4.0); HEMATOCRIT 22.7 % (39.0-51.0); HEMOGLOBIN 7.6 GM/DL (13.0-17.0); LYMPH % 8.5 % (9.0-44.0); LYMPHOCYTE # 0.3 TH/MM3 (1.0-4.8); MEAN CELL VOLUME 93.8 FL (80.0-100.0); MEAN CORPUSCULAR HEMOGLOBIN 31.2 PG (27.0-34.0); MEAN CORPUSCULAR HGB CONC 33.3 % (32.0-36.0); MEAN PLATELET VOLUME 9.5 FL (7.0-11.0); MONO % 3.7 % (0.0-8.0); MONOCYTE # 0.1 TH/MM3 (0-0.9); NEUT % 87.3 % (16.0-70.0); PLATELET COUNT 111 TH/MM3 (150-450); RED BLOOD COUNT 2.42 MIL/MM3 (4.50-5.90); RED CELL DISTRIBUTION WIDTH 17.9 % (11.6-17.2); WHITE BLOOD COUNT 3.7 TH/MM3 (4.0-11.0)
[2018-01-07 07:15] LABS: ALBUMIN 1.8 GM/DL (3.4-5.0); ALKALINE PHOSPHATASE 98 U/L (45-117); ALT (GPT) 17 U/L (12-78); AST (GOT) 44 U/L (15-37); BICARBONATE 21.2 MEQ/L (21.0-32.0); BLOOD UREA NITROGEN 23 MG/DL (7-18); CALCIUM 7.8 MG/DL (8.5-10.1); CHLORIDE 115 MEQ/L (98-107); CREATININE 0.75 MG/DL (0.60-1.30); GLOMERULAR FILTRATION RATE 105 ML/MIN (>89); GLUCOSE,RANDOM 130 MG/DL (74-106); SODIUM (NA) 145 MEQ/L (136-145); TOTAL BILIRUBIN ADULT 0.7 MG/DL (0.2-1.0); TOTAL PROTEIN 5.3 GM/DL (6.4-8.2)
--- NOTE | 2018-01-07 08:21 | PD.ORT.PN ---
Subjective Subjective Remarks Stable 1 day postop. No complaints. No new issues Objective Vitals Vital Signs Date Time Temp Pulse Resp B/P (MAP) Pulse Ox O2 Delivery O2 Flow Rate FiO2 01/07/18 08:07 98.2 80 20 126/60 (82) 96 01/07/18 05:56 21 01/07/18 05:28 98.3 79 18 122/58 (79) 98 01/07/18 01:42 97.8 74 16 119/65 (83) 94 01/06/18 20:35 97.8 78 16 132/63 (86) 98 01/06/18 17:00 98.6 78 18 124/58 (80) 94 01/06/18 14:15 97.8 78 18 99/55 (70) 97 Room Air 01/06/18 09:26 99.0 86 18 127/67 (87) 98 01/06/18 09:06 99.8 88 18 132/65 (87) 01/06/18 08:20 99.5 86 16 127/64 (85) 98 I/O 01/06/18 01/06/18 01/06/18 01/07/18 01/07/18 01/07/18 07:00 15:00 23:00 07:00 15:00 23:00 Intake Total 700 ml 840 ml Output Total 20 ml Balance 680 ml 840 ml IV Total 100 ml 840 ml Other 600 ml Estimated Blood Loss 20 ml # Voids 1 # Bowel Movements 1 1 Result Diagram: 01/07/18 0506 01/07/18 0506 Objective Remarks Dressing and tract dressing intact. Mild drainage. Drain sutured in place. No calf tenderness or abnormal swelling Assessment & Plan Assessment and Plan Septic arthritis of the right knee, E. coli. History of rheumatoid arthritis. History of left total knee replacement arthroplasty. SURGERY: Arthrotomy of right knee with synovectomy PLAN: Weightbearing as tolerated. IV antibiotics per medical team/infectious disease. Drain to be DC'd on Wednesday. It is sutured in. Daily dressing change. We will defer to medical with regard to anticoagulation. Consider Lovenox. We will see once over the weekend. After discharge, follow-up in 2 weeks for suture removal Mervin Fuentes MD Jan 07, 2018 08:21
[2018-01-07] MEDS: SODIUM CHLORIDE 0.9% FLUSH 10 ML FLUSH IV FLUSH SCH ×2 (09:00→20:07)
[2018-01-07] MEDS: SERTRALINE HCL 100 MG TAB PO SCH (09:14)
[2018-01-07] MEDS: MULTIVITAMINS/MINERALS THERAPEUTIC TAB PO SCH (09:14)
[2018-01-07] MEDS: FERROUS SULFATE 325 MG (65 MG ELEMENTAL IRON) TAB PO SCH ×2 (09:15→18:24)
[2018-01-07] MEDS: CALCIUM/VITAMIN D 250 MG/125 U TAB PO SCH ×3 (09:15→18:24)
[2018-01-07] MEDS: FUROSEMIDE 20 MG TAB PO SCH (09:15)
[2018-01-07] MEDS: PANTOPRAZOLE SOD 40 MG DELAYED RELEASE TAB PO SCH (09:15)
[2018-01-07] MEDS: cefTRIAXone INJ 2,000 MG in SODIUM CHLORIDE 0.9% INJ 100 ML IV SCH (09:16)
[2018-01-07] MEDS: LACTULOSE SYRUP 20 GM/30 ML CUP PO SCH ×4 (09:16→20:07)
[2018-01-07] MEDS: LACTATED RINGER'S 1000 ML INJ 1,000 ML IV SCH (09:59)
--- NOTE | 2018-01-07 13:11 | PD.ONC.PN ---
Subjective Subjective Remarks Afebrile overnight. Patient resting in bed in nad. states right knee hurts today but pain is better than yesterday. Objective Data Date Time Temp Pulse Resp B/P (MAP) Pulse Ox O2 Delivery O2 Flow Rate FiO2 01/07/18 12:19 97.9 68 20 128/60 (82) 98 01/07/18 08:07 98.2 80 20 126/60 (82) 96 01/07/18 05:56 21 01/07/18 05:28 98.3 79 18 122/58 (79) 98 01/07/18 01:42 97.8 74 16 119/65 (83) 94 01/06/18 20:35 97.8 78 16 132/63 (86) 98 01/06/18 17:00 98.6 78 18 124/58 (80) 94 01/06/18 14:15 97.8 78 18 99/55 (70) 97 Room Air 01/07/18 01/07/18 01/07/18 07:00 15:00 23:00 Intake Total 100 ml Balance 100 ml Result Diagram: 01/07/18 1140 01/07/18 0506 Laboratory Results Laboratory Tests Test 01/06/18 16:40 01/06/18 19:19 01/07/18 05:06 01/07/18 11:40 White Blood Count 3.6 TH/MM3 3.7 TH/MM3 Red Blood Count 2.43 MIL/MM3 2.42 MIL/MM3 Hemoglobin 7.6 GM/DL 7.5 GM/DL 7.6 GM/DL 7.5 GM/DL Hematocrit 23.2 % 22.7 % Mean Corpuscular Volume 95.4 FL 93.8 FL Mean Corpuscular Hemoglobin 31.1 PG 31.2 PG Mean Corpuscular Hemoglobin Concent 32.6 % 33.3 % Red Cell Distribution Width 18.0 % 17.9 % Platelet Count 92 TH/MM3 111 TH/MM3 Mean Platelet Volume 8.7 FL 9.5 FL Neutrophils (%) (Auto) 90.3 % 87.3 % Lymphocytes (%) (Auto) 5.5 % 8.5 % Monocytes (%) (Auto) 3.1 % 3.7 % Eosinophils (%) (Auto) 0.4 % 0.1 % Basophils (%) (Auto) 0.7 % 0.4 % Neutrophils # (Auto) 3.3 TH/MM3 3.2 TH/MM3 Lymphocytes # (Auto) 0.2 TH/MM3 0.3 TH/MM3 Monocytes # (Auto) 0.1 TH/MM3 0.1 TH/MM3 Eosinophils # (Auto) 0.0 TH/MM3 0.0 TH/MM3 Basophils # (Auto) 0.0 TH/MM3 0.0 TH/MM3 CBC Comment AUTO DIFF DIFF FINAL Differential Comment AUTO DIFF CONFIRMED Platelet Estimate LOW Platelet Morphology Comment NORMAL Ovalocytes 1+ Blood Urea Nitrogen 23 MG/DL Creatinine 0.75 MG/DL Random Glucose 130 MG/DL Total Protein 5.3 GM/DL Albumin 1.8 GM/DL Calcium Level 7.8 MG/DL Alkaline Phosphatase 98 U/L Aspartate Amino Transf (AST/SGOT) 44 U/L Alanine Aminotransferase (ALT/SGPT) 17 U/L Total Bilirubin 0.7 MG/DL Sodium Level 145 MEQ/L Potassium Level 4.5 MEQ/L Chloride Level 115 MEQ/L Carbon Dioxide Level 21.2 MEQ/L Anion Gap 9 MEQ/L Estimat Glomerular Filtration Rate 105 ML/MIN Culture Results Microbiology Date/Time Source Procedure Growth Status 01/06/18 19:19 Blood Peripheral Aerobic Blood Culture - Preliminary NO GROWTH IN 1 DAY Resulted 01/06/18 19:19 Blood Peripheral Anaerobic Blood Culture - Preliminary NO GROWTH IN 1 DAY Resulted 01/06/18 19:14 Blood Peripheral Aerobic Blood Culture - Preliminary NO GROWTH IN 1 DAY Resulted 01/06/18 19:14 Blood Peripheral Anaerobic Blood Culture - Preliminary NO GROWTH IN 1 DAY Resulted 01/06/18 18:30 Stool Stool Stool Occult Blood (TRUNG) - Final HEMOCCULT POSITIVE Complete 01/06/18 14:00 Wound Knee Fungal Smear - Final NO FUNGAL ELEMENTS SEEN. Resulted 01/06/18 14:00 Wound Knee Fungal Culture Pending Resulted 01/06/18 14:00 Wound Knee Acid Fast Stain Pending Received 01/06/18 14:00 Wound Knee Mycobacterial Culture Pending Received 01/06/18 14:00 Wound Knee Gram Stain - Final Resulted 01/06/18 14:00 Wound Knee Wound Culture Pending Resulted Administered Medications Medications (Trade) Dose Ordered Sig/Joann Route PRN Reason Start Time Stop Time Status Last Admin Dose Admin Sodium Chloride (NS Flush) 2 ml BID IV FLUSH 01/03/18 21:00 01/06/18 10:17 Acetaminophen (Tylenol) 650 mg Q4H PRN PO TEMP > 100.4 01/03/18 13:30 01/05/18 20:10 Ferrous Sulfate (Ferrous Sulfate) 325 mg BIDPC PO 01/03/18 18:00 01/07/18 09:15 Furosemide (Lasix) 20 mg DAILY PO 01/04/18 09:00 01/07/18 09:15 Acetaminophen/ Hydrocodone Bitart (Ada 5-325 Mg) 1 tab Q6H PRN PO PAIN 01/03/18 13:45 01/06/18 10:18 Pantoprazole Sodium (Protonix) 40 mg DAILY PO 01/04/18 09:00 01/07/18 09:15 Sertraline HCl (Zoloft) 200 mg DAILY PO 01/04/18 09:00 01/07/18 09:14 Ceftriaxone Sodium 2000 mg/ Sodium Chloride 100 ml @ 200 mls/hr Q24H IV 01/05/18 10:00 01/07/18 09:16 Lactated Ringer's 1,000 ml @ 30 mls/hr Q24H PRN IV SEE LABEL COMMENTS 01/06/18 03:30 01/09/18 03:29 01/06/18 11:45 Lactulose (Lactulose Liq) 30 ml QID PO 01/06/18 09:00 01/07/18 09:16 Lactated Ringer's 1,000 ml @ 100 mls/hr Q10H IV 01/06/18 13:59 01/06/18 15:37 Calcium/Vitamin D (Oscal-D 250-125) 250 mg TID PO 01/06/18 18:00 01/07/18 09:15 Multivitamins/ Minerals Therapeutic (Theragran M Tab) 1 tab DAILY PO 01/07/18 09:00 01/07/18 09:14 Objective Remarks GENERAL: middle aged male, sitting up in bed in [facility]. SKIN: Warm and dry. HEAD: Normocephalic. EYES: No injection or drainage. NECK: Supple, trachea midline. CARDIOVASCULAR: Regular rate and rhythm RESPIRATORY: Breath sounds equal bilaterally. No accessory muscle use. GASTROINTESTINAL: Abdomen soft, non-tender, nondistended. EXTREMITIES: No cyanosis. Right knee in bandages with SS from drain MUSCULOSKELETAL: Adequate muscle tone. NEUROLOGICAL: awake and alert. normal speech. moving extremities. Assessment/Plan Problem List: (1) Pancytopenia ICD Codes: D61.818 - Other pancytopenia Status: Chronic Plan: --Due to liver cirrhosis and splenomegaly. --s/p 2 units of packed red blood cell transfusion on 01/04 --will need to trend hgb, dipping down a bit. --hemoccult positive--GI was consulted but patient/ do not want GI workup done at this time. (2) Liver cirrhosis ICD Codes: K74.60 - Unspecified cirrhosis of liver Status: Chronic (3) Portal hypertension ICD Codes: K76.6 - Portal hypertension Status: Chronic Plan: He has splenomegaly. (4) Septic joint of right knee joint ICD Codes: M00.9 - Pyogenic arthritis, unspecified Status: Acute Plan: --s/p I&D on 01/06 -- Joint effusion culture grew E. coli. He is on antibiotic per primary team. Plan 1. monitor CBC 2. no transfusion needed today. Attending Statement The exam, history, and the medical decision-making described in the above note were completed with the assistance of the mid-level provider. I reviewed and agree with the findings presented. I attest that I had a [id number] encounter with the patient on the same day, and personally performed and documented my assessment and findings in the medical record.Knee pain has improved. Feels better after the paracentesis. Hgb 7.5 Recommend transfusion if Hgb <7. Aditi Martinez Jan 07, 2018 13:11 Santiago Saeed MD Jan 07, 2018 15:22
[2018-01-07] MEDS: ACETAMINOPHEN/HYDROcodone 325 MG/5 MG TAB PO PRN (13:18)
--- NOTE | 2018-01-07 16:45 | PD.ID.CON ---
History of Present Illness Service ID Consult Requested By Dr. Sorensen Reason for Consult Evaluation and Mment of E.coli bacteremia Primary Care Physician Prabhakar Ashley M.D. Diagnoses: History of Present Illness Mr. Parra is a 61-year-old man with PMHx of ? Alcoholic Liver cirrhosis, splenomegaly and pancytopenia. He reports being on water pills and undergoing paracentesis. Patient reports he was recently at 2 hospitals due to GI bleeding issues.Most recently he was at [facility] for workup of anemia and has received iron and blood transfusions for the same. He has been seen by Dr.Boon Saeed at [facility]. Despite this, he came in with a decrease in hemoglobin.He was brought in because of swelling in the right knee, which began just several days ago. Blood cultures were obtained peripherally. On admission, he had pancytopenia with white blood cell count of 3.5, hemoglobin of 6.3, platelet count of 64,000. Patient underwent a sepsis workup. Xray of his right knee revealed large effusion which was tapped and subsequently on 01/06/2018 patient underwent Irrigation and washout of septic joint. Blood cultures on admission, synovial fluid studies with E.coli pansensitive. Patient is on empiric Ceftriaxone IV and tolerating it well. He denies any overt bleeding. Denies any melena or bright red blood per rectum. He does have a history of GI bleed. He denies having fever; however, he was febrile when he came in. ID consulted for evaluation and Mment of possible sepsis, E.coli bacteremia. Review of Systems ROS Limitations: Poor Historian Constitutional: COMPLAINS OF: Fever, DENIES: Diaphoretic episodes, Fatigue, Weight gain, Weight loss, Chills, Dizziness, Change in appetite, Night Sweats Endocrine: DENIES: Heat/cold intolerance, Polydipsia, Polyuria, Polyphagia Eyes: DENIES: Blurred vision, Diplopia, Eye inflammation, Eye pain, Vision loss , Photosensitivity, Double Vision Ears, nose, mouth, throat: DENIES: Tinnitus, Hearing loss, Vertigo, Nasal discharge, Oral lesions, Throat pain, Hoarseness, Ear Pain, Running Nose, Epistaxis, Sinus Pain, Toothache, Odynophagia Respiratory: DENIES: Apneas, Cough, Snoring, Wheezing, Hemoptysis, Sputum production, Shortness of breath Cardiovascular: DENIES: Chest pain, Palpitations, Syncope, Dyspnea on Exertion , PND, Lower Extremity Edema, Orthopnea, Claudication Gastrointestinal: DENIES: Abdominal pain, Black stools, Bloody stools, Constipation, Diarrhea, Nausea, Vomiting, Difficulty Swallowing, Anorexia Genitourinary: DENIES: Sexual dysfunction, Urinary frequency, Urinary incontinence, Urgency, Hematuria, Dysuria, Nocturia, Penile Discharge, Testicular Pain, Testicular Swelling Musculoskeletal: DENIES: Joint pain, Muscle aches, Stiffness, Joint Swelling, Back pain, Neck pain Integumentary: DENIES: Abnormal pigmentation, Nail changes, Pruritus, Rash Hematologic/lymphatic: DENIES: Bruising, Lymphadenopathy Immunologic/allergic: DENIES: Eczema, Urticaria Neurologic: DENIES: Abnormal gait, Headache, Localized weakness, Paresthesias, Seizures, Speech Problems, Tremor, Poor Balance Psychiatric: DENIES: Anxiety, Confusion, Mood changes, Depression, Hallucinations, Agitation, Suicidal Ideation, Homicidal Ideation, Delusions Except as stated in HPI: all other systems reviewed are Neg Past Family Social History Allergies: Coded Allergies: No Known Allergies (Unverified Allergy, Unknown, 01/03/18) Past Medical History 1. Alcohol abuse. 2. Cirrhosis. 3. Portal hypertension. 4. Ascites. 5. Splenomegaly. 6. Depression. 7. Hypertension. 8. Peripheral neuropathy. 9. Restless leg syndrome. 10. Cholelithiasis. 11. Degenerative disk disease. 12. history of gastrointestinal bleed. 13. History of aspiration pneumonia with respiratory failure. Past Surgical History Back surgery, neck surgery, upper endoscopy colonoscopy, paracentesis, eye surgery, spinal stimulator implant. Reported Medications Reported Meds & Active Scripts Active Walker with Front Wheels (Device) 1 Mis Mis Ea .XX DIRECTED Propranolol (Propranolol HCl) 10 Mg Tab 10 Mg PO Q12HR Pantoprazole (Pantoprazole Sodium) 40 Mg Tab 40 Mg PO DAILY Magnesium Oxide 241.3 Mg Tab 400 Mg PO DAILY 30 Days Furosemide 20 Mg Tab 20 Mg PO DAILY Reported [place] (Hydrocodone-Acetaminophen) 5 Mg-325 Mg Tab 1 Tab PO Q6H PRN Lactulose Liq (Lactulose) 10 Gm/15 Ml Soln 30 Ml PO BID PRN Vitamin B-12 (Cyanocobalamin) 1,000 Mcg Tab 1,500 Mcg PO DAILY Calcium 600 with Vitamin D (Calcium Carbonate-Cholecalciferol) 600-400 mg-Unit Tab 1 Tab PO DAILY Zoloft (Sertraline HCl) 100 Mg Tab 200 Mg PO DAILY Ferrous Sulfate 325 Mg (65 Mg Iron) Tablet 325 Mg PO BIDPC Mirapex (Pramipexole Dihydrochloride) 0.5 Mg Tab 0.5 Mg PO BID PRN Active Ordered Medications Current Medications Medications (Trade) Dose Ordered Sig/Joann Route Start Time Stop Time Status Last Admin (NS Flush) 2 ml UNSCH PRN IV FLUSH 01/03/18 13:30 (NS Flush) 2 ml BID IV FLUSH 01/03/18 21:00 01/07/18 20:07 (Tylenol) 650 mg Q4H PRN PO 01/03/18 13:30 01/05/18 20:10 (Reglan Inj) 5 mg Q6H PRN IV PUSH 01/03/18 13:30 (Narcan Inj) 0.4 mg UNSCH PRN IV PUSH 01/03/18 13:30 (Ferrous Sulfate) 325 mg BIDPC PO 01/03/18 18:00 01/07/18 18:24 (Lasix) 20 mg DAILY PO 01/04/18 09:00 01/07/18 09:15 ([place] 5-325 Mg) 1 tab Q6H PRN PO 01/03/18 13:45 01/07/18 13:18 (Protonix) 40 mg DAILY PO 01/04/18 09:00 01/07/18 09:15 (Mirapex) 0.5 mg BID PRN PO 01/03/18 13:45 (Zoloft) 200 mg DAILY PO 01/04/18 09:00 01/07/18 09:14 (Tylenol) 650 mg Q4H PRN PO 01/04/18 07:30 (Benadryl) 25 mg Q4H PRN PO 01/04/18 07:30 Ceftriaxone Sodium 2000 mg/ Sodium Chloride 100 ml @ 200 mls/hr Q24H IV 01/05/18 10:00 01/07/18 09:16 Lactated Ringer's 1,000 ml @ 30 mls/hr Q24H PRN IV 01/06/18 03:30 01/09/18 03:29 01/06/18 11:45 Sodium Chloride 500 ml @ 30 mls/hr [id number] PRN IV 01/06/18 03:30 01/09/18 03:29 (Lopressor) 25 mg RECYCLABLE PRODUCTS SORTER PRN PO 01/06/18 03:30 01/09/18 03:29 (Betadine 5% Antisepsis Kit) 1 applic RECYCL[employer] PRODUCTS SORTER PRN EACH NARE 01/06/18 03:30 01/09/18 03:29 (Chlorhexidine 2% Cloth) 3 pack RECYCLABLE PRODUCTS SORTER PRN TOPICAL 01/06/18 03:30 01/09/18 03:29 (Lactulose Liq) 30 ml QID PO 01/06/18 09:00 01/07/18 20:07 (Morphine Inj) 5 mg Q4H PRN IV PUSH 01/06/18 14:00 01/07/18 18:25 (Oscal-D 250-125) 250 mg TID PO 01/06/18 18:00 01/07/18 18:24 (Theragran M Tab) 1 tab DAILY PO 01/07/18 09:00 01/07/18 09:14 (Benadryl) 25 mg Q6H PRN PO 01/06/18 14:00 Family History Significant for father who of chronic kidney disease. No family history of cancer. Social History He is , lives with his . He quit smoking 3 years ago 1 ppd for 30 plus yrs. He quit drinking 3 years ago. Denies any illicit drug use. Physical Exam Vital Signs Vital Signs Date Time Temp Pulse Resp B/P (MAP) Pulse Ox O2 Delivery O2 Flow Rate FiO2 01/07/18 16:10 98.2 88 20 140/62 (88) 96 01/07/18 12:19 97.9 68 20 128/60 (82) 98 01/07/18 08:07 98.2 80 20 126/60 (82) 96 01/07/18 05:56 21 01/07/18 05:28 98.3 79 18 122/58 (79) 98 01/07/18 01:42 97.8 74 16 119/65 (83) 94 01/06/18 20:35 97.8 78 16 132/63 (86) 98 01/06/18 17:00 98.6 78 18 124/58 (80) 94 Physical Exam GENERAL: This is a well-nourished, well-developed patient, in no apparent distress. SKIN: No rashes, ecchymoses or lesions. Cool and dry. HEAD: Atraumatic. Normocephalic. No temporal or scalp tenderness. EYES: Pupils equal round and reactive. Extraocular motions intact. No scleral icterus. No injection or drainage. ENT: Nose without bleeding, purulent drainage or septal hematoma. Throat without erythema, tonsillar hypertrophy or exudate. Uvula midline. Airway patent. NECK: Trachea midline. No JVD or lymphadenopathy. Supple, nontender, no meningeal signs. CARDIOVASCULAR: Regular rate and rhythm without murmurs, gallops, or rubs. RESPIRATORY: Clear to auscultation. Breath sounds equal bilaterally. No wheezes , rales, or rhonchi. GASTROINTESTINAL: Abdomen soft,distended.Fluid + MUSCULOSKELETAL: Extremities without clubbing, cyanosis, or edema. No joint tenderness, effusion, or edema noted. No calf tenderness. Negative Homans sign bilaterally. NEUROLOGICAL: Awake and alert. Cranial nerves II through XII intact. Motor and sensory grossly within normal limits. Five out of 5 muscle strength in all muscle groups. Normal speech. Psych cooperative IV line sites with no e.o infection Laboratory Laboratory Tests Test 01/06/18 19:19 01/07/18 05:06 01/07/18 11:40 Hemoglobin 7.5 7.6 7.5 White Blood Count 3.7 Red Blood Count 2.42 Hematocrit 22.7 Mean Corpuscular Volume 93.8 Mean Corpuscular Hemoglobin 31.2 Mean Corpuscular Hemoglobin Concent 33.3 Red Cell Distribution Width 17.9 Platelet Count 111 Mean Platelet Volume 9.5 Neutrophils (%) (Auto) 87.3 Lymphocytes (%) (Auto) 8.5 Monocytes (%) (Auto) 3.7 Eosinophils (%) (Auto) 0.1 Basophils (%) (Auto) 0.4 Neutrophils # (Auto) 3.2 Lymphocytes # (Auto) 0.3 Monocytes # (Auto) 0.1 Eosinophils # (Auto) 0.0 Basophils # (Auto) 0.0 CBC Comment DIFF FINAL Differential Comment Blood Urea Nitrogen 23 Creatinine 0.75 Random Glucose 130 Total Protein 5.3 Albumin 1.8 Calcium Level 7.8 Alkaline Phosphatase 98 Aspartate Amino Transf (AST/SGOT) 44 Alanine Aminotransferase (ALT/SGPT) 17 Total Bilirubin 0.7 Sodium Level 145 Potassium Level 4.5 Chloride Level 115 Carbon Dioxide Level 21.2 Anion Gap 9 Estimat Glomerular Filtration Rate 105 Date/Time Source Procedure Growth Status 01/06/18 19:19 Blood Peripheral Aerobic Blood Culture - Preliminary NO GROWTH IN 1 DAY Resulted 01/06/18 19:19 Blood Peripheral Anaerobic Blood Culture - Preliminary NO GROWTH IN 1 DAY Resulted 01/04/18 11:10 Fluid Synovial Fluid Gram Stain - Final Complete 01/04/18 11:10 Body Fluid Culture - Final Escherichia Coli Complete 01/06/18 18:30 Stool Stool Stool Occult Blood (TRUNG) - Final HEMOCCULT POSITIVE Complete 01/06/18 14:00 Wound Knee Fungal Smear - Final NO FUNGAL ELEMENTS SEEN. Resulted 01/06/18 14:00 Wound Knee Fungal Culture Pending Resulted Result Diagram: 01/07/18 1140 01/07/18 0506 Imaging Last Impressions Cyst Biopsy Asp-Paracentesis US 01/06/18 0000 Signed Impressions: CONCLUSION: Uncomplicated paracentesis, as above. Knee X-Ray 01/03/18 0000 Signed Impressions: CONCLUSION: Large joint effusion with mild degenerative changes in the medial lateral layo rtments. No fracture identified. Assessment and Plan Assessment and Plan Possible sepsis. E.coli bacteremia E.coli Septic arthritis Right knee s/p I&D 01/06/2018 Anemia on admission s/p multiple transfusions. Concern for GI bleed. Alcoholic liver cirrhosis. Recs: Continue Ceftriaxone IV Repeat blood cultures x 2 CT chest/abd/pelvis with contrast to look for e/o dissemination. 2D ECHO to r/o endocarditis. Check CRP Check Hepatitis profile Check HIV antibody screen Follow cultures Follow clinically. dw patient: explained to him the repeated GI bleeding episodes could have lead to translocation of bacteria along disrupted GI mucosa. Brittanie Stringer MD Jan 07, 2018 16:45
--- NOTE | 2018-01-07 16:46 | HHI.FF ---
Face to Face Verification Diagnosis: (1) Septic joint of right knee joint (2) Chronic liver failure Physical Therapy Order: Evaluate and Treat Home Health Nursing Order: Nursing assessment with vital signs [employer] Order: To Provide: Long range planning I have seen patient Reginald Parra on 01/07/18. My clinical findings support the need for the requested home health care services because: Limited ability to care for self I certify that my clinical findings support that this patient is homebound because: Unsafe to leave home unassisted Miguel Sorensen MD Jan 07, 2018 16:46
[2018-01-07] MEDS ORDERED: WALKER WHEELS/F1 MIS (16:50)
--- NOTE | 2018-01-07 16:57 | HHI.PR ---
Subjective Remarks Patient reports that pain is controlled. Denies any chest pain or shortness of breath. Patient reportedly did have some bloody bowel movements overnight. Nonbloody this morning. Does not wish to have colonoscopy. Objective Vital Signs Date Time Temp Pulse Resp B/P (MAP) Pulse Ox O2 Delivery O2 Flow Rate FiO2 01/07/18 16:10 98.2 88 20 140/62 (88) 96 01/07/18 12:19 97.9 68 20 128/60 (82) 98 01/07/18 08:07 98.2 80 20 126/60 (82) 96 01/07/18 05:56 21 01/07/18 05:28 98.3 79 18 122/58 (79) 98 01/07/18 01:42 97.8 74 16 119/65 (83) 94 01/06/18 20:35 97.8 78 16 132/63 (86) 98 01/06/18 17:00 98.6 78 18 124/58 (80) 94 I/O 01/06/18 01/06/18 01/06/18 01/07/18 01/07/18 01/07/18 07:00 15:00 23:00 07:00 15:00 23:00 Intake Total 700 ml 840 ml 100 ml Output Total 20 ml Balance 680 ml 840 ml 100 ml IV Total 100 ml 840 ml 100 ml Other 600 ml Estimated Blood Loss 20 ml # Voids 1 # Bowel Movements 1 1 Result Diagram: 01/07/18 1140 01/07/18 0506 Objective Remarks GENERAL: patient sitting up in bed. Appears comfortable. SKIN: Warm and dry. HEAD: Normocephalic. EYES: No scleral icterus. No injection or drainage. NECK: Supple, trachea midline. No JVD. CARDIOVASCULAR: Regular rate and rhythm without murmurs, gallops, or rubs. RESPIRATORY: Breath sounds equal bilaterally. No accessory muscle use. GASTROINTESTINAL: Abdomen soft, non-tender, nondistended. Gastric bubble on exam, however patient burps upon sitting. MUSCULOSKELETAL: No cyanosis, or edema. postoperative right knee with drain in place. Peripheral perfusion is intact. BACK: Nontender without obvious deformity. No CVA tenderness. A/P Assessment and Plan Mr. Parra is a 62-year-old male with a history of liver cirrhosis, pancytopenia who was admitted to the hospital due to possible septic joint of the right knee. He underwent a right knee aspiration on 01/03/2018. Orthopedic surgery also evaluated patient. //Pancytopenia -Probably due to liver disease. Patient follows up with Dr. Saeed ( hematology oncologist) -Heme/Onc is following. -Patient has a GI doctor in [place] and will follow up with Dr. Pyle (GI) upon discharge. = Hemoglobin 7.6. Patient has gastropathy which requires argon laser. Family does not wish to have GI evaluation here. Will follow up with GI as outpatient. = Hemoglobin 7.5. Relatively stable. Patient and do not wish to have workup here in the hospital. Will follow up with gastroenterology as outpatient. //Possible right knee septic joint Bacteremia with E. Coli -Currently patient does not have any fever or chills. Knee fluid culture is also growing E. Coli. -Right knee aspiration fluid WBC count was less than 50,000. -Patient is currently on ceftriaxone 2g Qday. -Continue [place], acetaminophen for pain. -Discussed with Dr. Garces. - Anesthesia expressed concern to do I&D in [place]. - We will transfer patient to the [facility]. NPO midnight for I&D in the AM. = Repeat blood cultures. = Resistant to Levaquin. //Alcoholic Liver disease -Status post ultrasound-guided paracentesis. -Continue Lasix 20mg Qday. He will likely need Spironolactone as well. = Ammonia 95. Continue on lactulose. Full code. SCDs. Discharge Planning cont inpt mgt Hopefully go home with home health over the weekend, probably Wednesday Miguel Sorensen MD Jan 07, 2018 16:57
[2018-01-07] MEDS ORDERED: SPIRONOLACTONE 25 MG TAB PO ONE (17:30)
[2018-01-07] MEDS: MORPHINE SULFATE 8 MG/ML INJ IV PUSH PRN (18:25)
[2018-01-07] MEDS ORDERED: DIATRIZOATE MEGLUM/DIATRIZOATE SOD 9 ML CUP PO SCH (22:00)
[2018-01-08] MEDS ORDERED: IOHEXOL 350 MG/ML 10 ML VIAL (for RAD DIAG) IVCONTRAST ONE (00:30)
--- NOTE | 2018-01-08 00:58 | RADRPT ---
EXAM DATE: 01/08/2018 12:38 AM EDT AGE/SEX: 62 years / Male INDICATIONS: Septic knee; rule out abscess. CLINICAL DATA: This is the patient's initial encounter. Patient reports that signs and symptoms have been present for 1 day and indicates a pain score of 0/10. MEDICAL/SURGICAL HISTORY: Hypertension. Cardiovascular disease. Ascites . Back and neck surge ry ORAL CONTRAST: Prescribed oral contrast ingested. RADIATION DOSE: 6.12 CTDI (mGy) ; Combined studies COMPARISON: No prior exams available for comparison. TECHNIQUE: Multiple contiguous axial images were obtained through the abdomen and pelvis following b olus infusion of 95 ml Omnipaque 350 (iohexol) nonionic water-soluble contrast as a cumulative dose for multiple exams. Prescribed oral contrast ingested. Using automated exposure control and adjustm ent of the mA and/or kV according to patient size, radiation dose was kept as low as reasonably achie vable to obtain optimal diagnostic quality images. DICOM format image data is available electronical ly for review and comparison. FINDINGS: Lower Lungs: The visualized lower lungs are clear. Liver: The liver is mildly inhomogeneous with lobular outer contour. There is no focal mass or ductal dilatation. There are multiple small calcified gallstones layering dependently in the gallbladder. Spleen: Homogeneous density without enlargement. Pancreas: Unremarkable without mass or calcification. Kidneys: Normal in size and shape. No evidence of mass or hydronephrosis. Adrenal Glands: Unremarkable. Aorta: The aorta and proximal iliac vessels are grossly unremarkable without aneurysmal dilation. Bowel/Mesentery: Is moderate amount of ascitic fluid throughout the abdomen and pelvis. There is mil d gaseous dilatation of portions of the colon. Abdominal Wall: Intact. Retroperitoneum: No evidence of adenopathy in the retrocrural, para-aortic, or deep pelvic regions. Bladder: Contours are smooth. Reproductive Organs: No abnormal masses or calcifications seen. Inguinal: The inguinal region is unremarkable without evidence of adenopathy. Bony Structures: Degenerative change and scoliosis are present. There are multiple postsurgical carlton ges in the lumbar spine. A spinal stimulator device is present. CONCLUSION: 1. Cirrhotic appearing liver with no focal lesion. 2. Moderate ascitic fluid throughout the abdomen and pelvis. 3. Small calcified gallstones layering dependently in the gallbladder. 4. Mild gaseous distention in portions the colon most characteristic of an ileus. Electronically signed by: Geoff Bartlett MD 01/08/2018 12:56 AM EDT
--- NOTE | 2018-01-08 01:01 | RADRPT ---
EXAM DATE: 01/08/2018 12:36 AM EDT AGE/SEX: 62 years / Male INDICATIONS: Septic knee; rule out pneumonia. CLINICAL DATA: This is the patient's initial encounter. Patient reports that signs and symptoms have been present for 1 day and indicates a pain score of 0/10. MEDICAL/SURGICAL HISTORY: Hypertension. Cardiovascular disease. Ascites . Back and neck surgery RADIATION DOSE: 6.12 CTDI (mGy) ; Combined studies COMPARISON: No prior exams available for comparison. TECHNIQUE: Multiple contiguous axial images were obtained through the chest during bolus infusion of 95 ml Omnipaque 350 (iohexol) nonionic water-soluble contrast as a cumulative dose for multiple exa ms. Images were obtained in suspended respiration using multiple row detector helical technique. U sing automated exposure control and adjustment of the mA and/or kV according to patient size, radiati on dose was kept as low as reasonably achievable to obtain optimal diagnostic quality images. DICOM format image data is available electronically for review and comparison. FINDINGS: Lungs: The lungs are symmetrically aerated. Alveolar infiltrates are present in the right upper lobe and portions of the lingula and right middle lobe. There is patchy alveolar opacity in the right low er lobe as well. There is no mass or distinct nodule.. Mediastinum: There is good visualization of the great vessels of the middle mediastinum. No evidenc e of mediastinal or hilar adenopathy/mass. Coronary artery calcifications are present. Pleurae: No evidence of focal thickening or pleural effusion. Axillae: Unremarkable. Bony Structures: Unremarkable. Miscellaneous: The examination was extended to include the upper abdomen, and both adrenal glands ar e normal in size and configuration. The liver is cirrhotic in appearance. There is a moderate amount of ascitic fluid in the abdomen. Bilateral gynecomastia is noted. CONCLUSION: 1. Bilateral alveolar infiltrates greatest in the right upper lobe. The differential diagnosis inclu karo pneumonia and asymmetric pulmonary edema. 2. Bilateral gynecomastia. 3. Ascitic fluid and cirrhotic liver is upper abdomen. 4. Coronary artery calcifications. Electronically signed by: Geoff Bartlett MD 01/08/2018 12:59 AM EDT
[2018-01-08] MEDS: ACETAMINOPHEN/HYDROcodone 325 MG/5 MG TAB PO PRN ×3 (02:59→17:05)
[2018-01-08 03:25] VITALS: BP 135/64; PULSE 96; RESP 16; TEMP 98.5; O2SAT 98
[2018-01-08] MEDS: MORPHINE SULFATE 8 MG/ML INJ IV PUSH PRN ×3 (04:06→19:08)
[2018-01-08 07:19] VITALS: BP 108/58; PULSE 87; RESP 18; TEMP 98.4; O2SAT 96
[2018-01-08 08:15] LABS: AUTOMATED NEUTROPHIL # 3.9 TH/MM3 (1.8-7.7); BASOPHIL % 0.4 % (0.0-2.0); EOSINOPHIL # 0.1 TH/MM3 (0-0.4); EOSINOPHIL % 1.4 % (0.0-4.0); HEMATOCRIT 21.4 % (39.0-51.0); HEMOGLOBIN 7.1 GM/DL (13.0-17.0); LYMPH % 10.2 % (9.0-44.0); LYMPHOCYTE # 0.5 TH/MM3 (1.0-4.8); MEAN CELL VOLUME 93.8 FL (80.0-100.0); MEAN CORPUSCULAR HEMOGLOBIN 31.2 PG (27.0-34.0); MEAN CORPUSCULAR HGB CONC 33.2 % (32.0-36.0); MONO % 6.1 % (0.0-8.0); MONOCYTE # 0.3 TH/MM3 (0-0.9); NEUT % 81.9 % (16.0-70.0); PLATELET COUNT 108 TH/MM3 (150-450); RED BLOOD COUNT 2.28 MIL/MM3 (4.50-5.90); RED CELL DISTRIBUTION WIDTH 17.6 % (11.6-17.2); WHITE BLOOD COUNT 4.8 TH/MM3 (4.0-11.0)
--- NOTE | 2018-01-08 08:26 | HHI.PR ---
Subjective Remarks Patient says he is feeling all right. Denies any chest pain shortness of breath. Denies any abdominal pain. Denies any dysuria. Reports right knee pain is controlled Objective Vital Signs Date Time Temp Pulse Resp B/P (MAP) Pulse Ox O2 Delivery O2 Flow Rate FiO2 01/08/18 07:19 98.4 87 18 108/58 (75) 96 01/08/18 04:11 18 01/08/18 03:59 20 01/08/18 03:25 98.5 96 16 135/64 (87) 98 01/07/18 23:37 98.4 95 16 159/72 (101) 97 01/07/18 19:38 98.1 93 16 161/75 (103) 96 01/07/18 16:10 98.2 88 20 140/62 (88) 96 01/07/18 12:19 97.9 68 20 128/60 (82) 98 I/O 01/07/18 01/07/18 01/07/18 01/08/18 01/08/18 01/08/18 06:59 14:59 22:59 06:59 14:59 22:59 Intake Total 950 ml Balance 950 ml IV Total 950 ml Result Diagram: 01/08/18 0730 01/07/18 0506 Objective Remarks GENERAL: patient sitting up in bed. Appears comfortable. SKIN: Warm and dry. HEAD: Normocephalic. EYES: No scleral icterus. No injection or drainage. NECK: Supple, trachea midline. No JVD. CARDIOVASCULAR: Regular rate and rhythm without murmurs, gallops, or rubs. RESPIRATORY: Breath sounds equal bilaterally. No accessory muscle use. GASTROINTESTINAL: Abdomen soft, non-tender, nondistended. MUSCULOSKELETAL: No cyanosis, or edema. postoperative right knee dressed Peripheral perfusion is intact. BACK: Nontender without obvious deformity. No CVA tenderness. A/P Assessment and Plan Mr. Parra is a 62-year-old male with a history of liver cirrhosis, pancytopenia who was admitted to the hospital due to possible septic joint of the right knee. He underwent a right knee aspiration on 01/03/2018. Orthopedic surgery also evaluated patient. //Pancytopenia -Probably due to liver disease. Patient follows up with Dr. Saeed ( hematology oncologist) -Heme/Onc is following. -Patient has a GI doctor in [place] and will follow up with Dr. Pyle (GI) upon discharge. = Hemoglobin 7.6. Patient has gastropathy which requires argon laser. Family does not wish to have GI evaluation here. Will follow up with GI as outpatient. = Hemoglobin 7.5. Relatively stable. Patient and do not wish to have workup here in the hospital. Will follow up with gastroenterology as outpatient. = Hemoglobin 7.1. About stable from yesterday. We will continue to monitor. //right knee septic joint Bacteremia with E. Coli -Currently patient does not have any fever or chills. Knee fluid culture is also growing E. Coli. -Right knee aspiration fluid WBC count was less than 50,000. -Patient is currently on ceftriaxone 2g Qday. -Continue [place], acetaminophen for pain. -Discussed with Dr. Garces. - Anesthesia expressed concern to do I&D in [place]. - We will transfer patient to the main hospital. NPO midnight for I&D in the AM. = Resistant to Levaquin. Repeat blood cultures from 01/06- so far. ID following , concern for possible translocation from bowel. Pending echo appreciate ID assistance. //Alcoholic Liver disease -Status post ultrasound-guided paracentesis. -Continue Lasix 20mg Qday. He will likely need Spironolactone as well. = Ammonia 95. Continue on lactulose. Full code. SCDs. Discharge Planning Pending echocardiogram. We will need ID clearance We will need Orthoplast May need IV antibiotics Hopefully go home with home health over the weekend, probably Wednesday Miguel Sorensen MD Jan 08, 2018 08:26
[2018-01-08 08:48] LABS: ALBUMIN 1.8 GM/DL (3.4-5.0); BICARBONATE 21.3 MEQ/L (21.0-32.0); CALCIUM 7.6 MG/DL (8.5-10.1); CREATININE 0.88 MG/DL (0.60-1.30); MAGNESIUM 1.6 MG/DL (1.5-2.5); PHOSPHORUS 2.2 MG/DL (2.5-4.9)
[2018-01-08] MEDS: CALCIUM/VITAMIN D 250 MG/125 U TAB PO SCH ×3 (09:23→17:04)
[2018-01-08] MEDS: PANTOPRAZOLE SOD 40 MG DELAYED RELEASE TAB PO SCH (09:23)
[2018-01-08] MEDS: LACTULOSE SYRUP 20 GM/30 ML CUP PO SCH ×4 (09:23→21:59)
[2018-01-08] MEDS: SODIUM CHLORIDE 0.9% FLUSH 10 ML FLUSH IV FLUSH SCH ×2 (09:23→21:00)
[2018-01-08] MEDS: FERROUS SULFATE 325 MG (65 MG ELEMENTAL IRON) TAB PO SCH ×2 (09:23→17:05)
[2018-01-08] MEDS: SERTRALINE HCL 100 MG TAB PO SCH (09:24)
[2018-01-08] MEDS: FUROSEMIDE 20 MG TAB PO SCH (09:24)
[2018-01-08] MEDS: MULTIVITAMINS/MINERALS THERAPEUTIC TAB PO SCH (09:24)
[2018-01-08] MEDS: cefTRIAXone INJ 2,000 MG in SODIUM CHLORIDE 0.9% INJ 100 ML IV SCH (09:25)
[2018-01-08 11:01] VITALS: BP 118/56; PULSE 84; RESP 18; TEMP 97.9; O2SAT 95
--- NOTE | 2018-01-08 12:27 | PD.ORT.PN ---
Subjective Post Op Day #: 2 Subjective Remarks Patient is resting in bed with c/o moderate right knee pain. Objective Vitals Vital Signs Date Time Temp Pulse Resp B/P (MAP) Pulse Ox O2 Delivery O2 Flow Rate FiO2 01/08/18 11:01 97.9 84 18 118/56 (76) 95 01/08/18 07:19 98.4 87 18 108/58 (75) 96 01/08/18 04:11 18 01/08/18 03:59 20 01/08/18 03:25 98.5 96 16 135/64 (87) 98 01/07/18 23:37 98.4 95 16 159/72 (101) 97 01/07/18 19:38 98.1 93 16 161/75 (103) 96 01/07/18 16:10 98.2 88 20 140/62 (88) 96 I/O 01/07/18 01/07/18 01/07/18 01/08/18 01/08/18 01/08/18 07:00 15:00 23:00 07:00 15:00 23:00 Intake Total 950 ml 100 ml Output Total 875 ml Balance 950 ml -775 ml IV Total 950 ml 100 ml Output Urine Total 800 ml Drainage Total 75 ml Result Diagram: 01/08/18 0730 01/08/18 0730 Imaging Last [address] 01/08/18 0000 Signed Impressions: CONCLUSION: 1. Bilateral alveolar infiltrates greatest in the right upper lobe. The differ ential diagnosis includes pneumonia and asymmetric pulmonary edema. 2. Bilateral gynecomastia. 3. Ascitic fluid and cirrhotic liver is upper abdomen. 4. Coronary artery calcifications. Abdomen/Pelvis CT 01/08/18 0000 Signed Impressions: CONCLUSION: 1. Cirrhotic appearing liver with no focal lesion. 2. Moderate ascitic fluid throughout the abdomen and pelvis. 3. Small calcified gallstones layering dependently in the gallbladder. 4. Mild gaseous distention in portions the colon most characteristic of an ile us. Objective Remarks Dressing is C/D/I. + NVI. SILT distally. Drain sutured in place and intact. 75 cc serosanguineous drainage. Patient has mild to moderate right lower extremity edema. Calf is soft and nontender. Assessment & Plan Ortho Post Op Day #: 2 Problem List: Assessment and Plan Septic arthritis of the right knee, E. coli. History of rheumatoid arthritis. History of left total knee replacement arthroplasty. SURGERY: POD #2: Arthrotomy of right knee with synovectomy PLAN: Weightbearing as tolerated. IV antibiotics per medical team/infectious disease. Maintain drain at this time as 75 cc removed this morning. Close monitoring of output over next 24 hours to see if drain can be pulled on Wednesday. Daily dressing change. We will defer to medical with regard to anticoagulation. Consider Lovenox. After discharge, follow-up in [address] Mervin Fuentes for suture removal Anemia to be managed by medical. Edward Salinas Jan 08, 2018 12:27
--- NOTE | 2018-01-08 14:36 | HHI.IDPN ---
Subjective Subjective Remarks Mr. Parra is a 61-year-old man with PMHx of ? Alcoholic Liver cirrhosis, splenomegaly and pancytopenia. He reports being on water pills and undergoing paracentesis. Patient reports he was recently at 2 hospitals due to GI bleeding issues.Most recently he was at [facility] for workup of anemia and has received iron and blood transfusions for the same. He has been seen by Dr.Boon Saeed at [facility]. Despite this, he came in with a decrease in hemoglobin.He was brought in because of swelling in the right knee, which began just several days ago. Blood cultures were obtained peripherally. On admission, he had pancytopenia with white blood cell count of 3.5, hemoglobin of 6.3, platelet count of 64,000. Patient underwent a sepsis workup. Xray of his right knee revealed large effusion which was tapped and subsequently on 01/06/2018 patient underwent Irrigation and washout of septic joint. Blood cultures on admission, synovial fluid studies with E.coli pansensitive. Patient is on empiric Ceftriaxone IV and tolerating it well. He denies any overt bleeding. Denies any melena or bright red blood per rectum. He does have a history of GI bleed. He denies having fever; however, he was febrile when he came in. ID consulted for evaluation and Mment of possible sepsis, E.coli bacteremia. Overnight events reviewed No fevers No rash No diarrhea Antibiotics Ceftriaxone IV Lines Line sites with no e.o infection Past Medical History Past Medical History 1. Alcohol abuse. 2. Cirrhosis. 3. Portal hypertension. 4. Ascites. 5. Splenomegaly. 6. Depression. 7. Hypertension. 8. Peripheral neuropathy. 9. Restless leg syndrome. 10. Cholelithiasis. 11. Degenerative disk disease. 12. history of gastrointestinal bleed. 13. History of aspiration pneumonia with respiratory failure. Past Surgical History Back surgery, neck surgery, upper endoscopy colonoscopy, paracentesis, eye surgery, spinal stimulator implant. Allergies: Coded Allergies: No Known Allergies (Unverified Allergy, Unknown, 01/03/18) Objective . Vital Signs Date Time Temp Pulse Resp B/P (MAP) Pulse Ox O2 Delivery O2 Flow Rate FiO2 01/08/18 11:01 97.9 84 18 118/56 (76) 95 01/08/18 07:19 98.4 87 18 108/58 (75) 96 01/08/18 04:11 18 01/08/18 03:59 20 01/08/18 03:25 98.5 96 16 135/64 (87) 98 01/07/18 23:37 98.4 95 16 159/72 (101) 97 01/07/18 19:38 98.1 93 16 161/75 (103) 96 01/07/18 16:10 98.2 88 20 140/62 (88) 96 01/08/18 01/08/18 01/09/18 15:00 23:00 07:00 Intake Total 100 ml Output Total 875 ml Balance -775 ml IV Total 100 ml Output Urine Total 800 ml Drainage Total 75 ml . Laboratory Tests Test 01/06/18 16:40 01/06/18 19:19 01/07/18 05:06 01/07/18 11:40 White Blood Count 3.6 TH/MM3 3.7 TH/MM3 Red Blood Count 2.43 MIL/MM3 2.42 MIL/MM3 Hemoglobin 7.6 GM/DL 7.5 GM/DL 7.6 GM/DL 7.5 GM/DL Hematocrit 23.2 % 22.7 % Mean Corpuscular Volume 95.4 FL 93.8 FL Mean Corpuscular Hemoglobin 31.1 PG 31.2 PG Mean Corpuscular Hemoglobin Concent 32.6 % 33.3 % Red Cell Distribution Width 18.0 % 17.9 % Platelet Count 92 TH/MM3 111 TH/MM3 Mean Platelet Volume 8.7 FL 9.5 FL Neutrophils (%) (Auto) 90.3 % 87.3 % Lymphocytes (%) (Auto) 5.5 % 8.5 % Monocytes (%) (Auto) 3.1 % 3.7 % Eosinophils (%) (Auto) 0.4 % 0.1 % Basophils (%) (Auto) 0.7 % 0.4 % Neutrophils # (Auto) 3.3 TH/MM3 3.2 TH/MM3 Lymphocytes # (Auto) 0.2 TH/MM3 0.3 TH/MM3 Monocytes # (Auto) 0.1 TH/MM3 0.1 TH/MM3 Eosinophils # (Auto) 0.0 TH/MM3 0.0 TH/MM3 Basophils # (Auto) 0.0 TH/MM3 0.0 TH/MM3 CBC Comment AUTO DIFF DIFF FINAL Differential Comment AUTO DIFF CONFIRMED Platelet Estimate LOW Platelet Morphology Comment NORMAL Ovalocytes 1+ Test 01/07/18 21:00 01/08/18 07:30 Hemoglobin 8.8 GM/DL 7.1 GM/DL White Blood Count 4.8 TH/MM3 Red Blood Count 2.28 MIL/MM3 Hematocrit 21.4 % Mean Corpuscular Volume 93.8 FL Mean Corpuscular Hemoglobin 31.2 PG Mean Corpuscular Hemoglobin Concent 33.2 % Red Cell Distribution Width 17.6 % Platelet Count 108 TH/MM3 Mean Platelet Volume 9.0 FL Neutrophils (%) (Auto) 81.9 % Lymphocytes (%) (Auto) 10.2 % Monocytes (%) (Auto) 6.1 % Eosinophils (%) (Auto) 1.4 % Basophils (%) (Auto) 0.4 % Neutrophils # (Auto) 3.9 TH/MM3 Lymphocytes # (Auto) 0.5 TH/MM3 Monocytes # (Auto) 0.3 TH/MM3 Eosinophils # (Auto) 0.1 TH/MM3 Basophils # (Auto) 0.0 TH/MM3 CBC Comment DIFF FINAL Differential Comment Laboratory Tests Test 01/07/18 05:06 01/08/18 07:30 Blood Urea Nitrogen 23 MG/DL 20 MG/DL Creatinine 0.75 MG/DL 0.88 MG/DL Random Glucose 130 MG/DL 105 MG/DL Total Protein 5.3 GM/DL Albumin 1.8 GM/DL 1.8 GM/DL Calcium Level 7.8 MG/DL 7.6 MG/DL Alkaline Phosphatase 98 U/L Aspartate Amino Transf (AST/SGOT) 44 U/L Alanine Aminotransferase (ALT/SGPT) 17 U/L Total Bilirubin 0.7 MG/DL Sodium Level 145 MEQ/L 142 MEQ/L Potassium Level 4.5 MEQ/L 3.5 MEQ/L Chloride Level 115 MEQ/L 109 MEQ/L Carbon Dioxide Level 21.2 MEQ/L 21.3 MEQ/L Anion Gap 9 MEQ/L 12 MEQ/L Estimat Glomerular Filtration Rate 105 ML/MIN 87 ML/MIN Phosphorus Level 2.2 MG/DL Magnesium Level 1.6 MG/DL Microbiology Date/Time Source Procedure Growth Status 01/06/18 19:19 Blood Peripheral Aerobic Blood Culture - Preliminary NO GROWTH IN 2 DAYS Resulted 01/06/18 19:19 Blood Peripheral Anaerobic Blood Culture - Preliminary NO GROWTH IN 2 DAYS Resulted 01/06/18 19:14 Blood Peripheral Aerobic Blood Culture - Preliminary NO GROWTH IN 2 DAYS Resulted 01/06/18 19:14 Blood Peripheral Anaerobic Blood Culture - Preliminary NO GROWTH IN 2 DAYS Resulted 01/06/18 18:30 Stool Stool Stool Occult Blood (TRUNG) - Final HEMOCCULT POSITIVE Complete 01/06/18 14:00 Wound Knee Fungal Smear - Final NO FUNGAL ELEMENTS SEEN. Resulted 01/06/18 14:00 Wound Knee Fungal Culture Pending Resulted 01/06/18 14:00 Wound Knee Acid Fast Stain - Final NO ACID FAST BACILLI SEEN Resulted 01/06/18 14:00 Wound Knee Mycobacterial Culture Pending Resulted 01/06/18 14:00 Wound Knee Gram Stain - Final Complete 01/06/18 14:00 Wound Culture - Final Escherichia Coli Complete Imaging Last Impressions Chest CT 01/08/18 Signed Impressions: CONCLUSION: 1. Bilateral alveolar infiltrates greatest in the right upper lobe. The differ ential diagnosis includes pneumonia and asymmetric pulmonary edema. 2. Bilateral gynecomastia. 3. Ascitic fluid and cirrhotic liver is upper abdomen. 4. Coronary artery calcifications. Abdomen/Pelvis CT 01/08/18 Signed Impressions: CONCLUSION: 1. Cirrhotic appearing liver with no focal lesion. 2. Moderate ascitic fluid throughout the abdomen and pelvis. 3. Small calcified gallstones layering dependently in the gallbladder. 4. Mild gaseous distention in portions the colon most characteristic of an ile us. Cyst Biopsy Asp-Paracentesis US 01/06/18 Signed Impressions: CONCLUSION: Uncomplicated paracentesis, as above. Knee X-Ray 01/03/18 Signed Impressions: CONCLUSION: Large joint effusion with mild degenerative changes in the medial lateral layo rtments. No fracture identified. Physical Exam GENERAL: This is a well-nourished, well-developed patient, in no apparent distress. SKIN: No rashes, ecchymoses or lesions. Cool and dry. HEAD: Atraumatic. Normocephalic. No temporal or scalp tenderness. EYES: Pupils equal round and reactive. Extraocular motions intact. No scleral icterus. No injection or drainage. ENT: Nose without bleeding, purulent drainage or septal hematoma. Throat without erythema, tonsillar hypertrophy or exudate. Uvula midline. Airway patent. NECK: Trachea midline. No JVD or lymphadenopathy. Supple, nontender, no meningeal signs. CARDIOVASCULAR: Regular rate and rhythm without murmurs, gallops, or rubs. RESPIRATORY: Clear to auscultation. Breath sounds equal bilaterally. No wheezes , rales, or rhonchi. GASTROINTESTINAL: Abdomen soft,distended.Fluid + MUSCULOSKELETAL: Extremities without clubbing, cyanosis, or edema. No joint tenderness, effusion, or edema noted. No calf tenderness. Negative Homans sign bilaterally. NEUROLOGICAL: Awake and alert. Cranial nerves II through XII intact. Motor and sensory grossly within normal limits. Five out of 5 muscle strength in all muscle groups. Normal speech. Psych cooperative IV line sites with no e.o infection Assessment & Plan Remarks Possible sepsis. E.coli bacteremia E.coli Septic arthritis Right knee s/p I&D 01/06/2018 Anemia on admission s/p multiple transfusions. Concern for GI bleed. Alcoholic liver cirrhosis. Recs: Continue Ceftriaxone IV Follow repeat blood cultures x 2 CT chest/abd/pelvis with contrast with pulm infiltrates, ascites, cirrhosis. reviewed with pt and . 2D ECHO to r/o endocarditis. HIV screen and Hepatitis profile negative. Follow cultures Follow clinically. dw patient: explained to him the repeated GI bleeding episodes could have lead to translocation of bacteria along disrupted GI mucosa. Brittanie Stringer MD Jan 08, 2018 14:36
[2018-01-08 15:44] VITALS: BP 136/61; PULSE 88; RESP 18; TEMP 98.1; O2SAT 99
[2018-01-08 16:00] VITALS: BP 131/61; PULSE 92; RESP 17; TEMP 99.2; O2SAT 98
[2018-01-08] MEDS: SODIUM CHLOR 0.9% 1000 ML INJ 1,000 ML IV SCH (19:11)
[2018-01-08 20:00] VITALS: BP 122/60; PULSE 90; RESP 17; TEMP 98.9; O2SAT 98
[2018-01-09] VITALS: BP 133/60; PULSE 93; RESP 17; TEMP 98.6; O2SAT 98
[2018-01-09 06:42] LABS: AUTOMATED NEUTROPHIL # 4.1 TH/MM3 (1.8-7.7); BASOPHIL % 0.6 % (0.0-2.0); EOSINOPHIL # 0.1 TH/MM3 (0-0.4); EOSINOPHIL % 1.7 % (0.0-4.0); HEMATOCRIT 22.4 % (39.0-51.0); HEMOGLOBIN 7.3 GM/DL (13.0-17.0); LYMPH % 6.3 % (9.0-44.0); LYMPHOCYTE # 0.3 TH/MM3 (1.0-4.8); MEAN CELL VOLUME 93.9 FL (80.0-100.0); MEAN CORPUSCULAR HEMOGLOBIN 30.8 PG (27.0-34.0); MEAN CORPUSCULAR HGB CONC 32.8 % (32.0-36.0); MEAN PLATELET VOLUME 9.2 FL (7.0-11.0); MONO % 6.6 % (0.0-8.0); MONOCYTE # 0.3 TH/MM3 (0-0.9); NEUT % 84.8 % (16.0-70.0); PLATELET COUNT 114 TH/MM3 (150-450); RED BLOOD COUNT 2.38 MIL/MM3 (4.50-5.90); RED CELL DISTRIBUTION WIDTH 17.4 % (11.6-17.2); WHITE BLOOD COUNT 4.9 TH/MM3 (4.0-11.0)
[2018-01-09 07:10] LABS: BICARBONATE 23.4 MEQ/L (21.0-32.0); CALCIUM 7.6 MG/DL (8.5-10.1); CREATININE 0.88 MG/DL (0.60-1.30); MAGNESIUM 1.5 MG/DL (1.5-2.5)
[2018-01-09 07:12] LABS: PHOSPHORUS 1.9 MG/DL (2.5-4.9)
[2018-01-09 08:00] VITALS: BP 130/61; PULSE 88; RESP 17; TEMP 98; O2SAT 96
[2018-01-09] MEDS: SODIUM CHLORIDE 0.9% FLUSH 10 ML FLUSH IV FLUSH SCH ×2 (09:00→21:00)
[2018-01-09] MEDS: FERROUS SULFATE 325 MG (65 MG ELEMENTAL IRON) TAB PO SCH ×2 (09:09→17:26)
[2018-01-09] MEDS: PANTOPRAZOLE SOD 40 MG DELAYED RELEASE TAB PO SCH (09:09)
[2018-01-09] MEDS: CALCIUM/VITAMIN D 250 MG/125 U TAB PO SCH ×3 (09:09→17:25)
[2018-01-09] MEDS: MULTIVITAMINS/MINERALS THERAPEUTIC TAB PO SCH (09:09)
[2018-01-09] MEDS: SERTRALINE HCL 100 MG TAB PO SCH (09:09)
[2018-01-09] MEDS: FUROSEMIDE 20 MG TAB PO SCH (09:10)
[2018-01-09] MEDS: cefTRIAXone INJ 2,000 MG in SODIUM CHLORIDE 0.9% INJ 100 ML IV SCH (09:16)
[2018-01-09] MEDS: ACETAMINOPHEN/HYDROcodone 325 MG/5 MG TAB PO PRN ×2 (09:17→17:25)
[2018-01-09] MEDS: LACTULOSE SYRUP 20 GM/30 ML CUP PO SCH ×4 (09:17→21:41)
--- NOTE | 2018-01-09 09:36 | HHI.PR ---
Subjective Remarks Patient says he is feeling all right with the exception of continued right knee pain. Denies any chest pain or shortness of breath. Denies nausea or vomiting. Denies any abdominal pain. Objective Vital Signs Date Time Temp Pulse Resp B/P (MAP) Pulse Ox O2 Delivery O2 Flow Rate FiO2 01/09/18 00:00 98.6 93 17 133/60 (84) 98 01/08/18 20:00 98.9 90 17 122/60 (80) 98 01/08/18 16:00 99.2 92 17 131/61 (84) 98 01/08/18 15:44 98.1 88 18 136/61 (86) 99 01/08/18 11:01 97.9 84 18 118/56 (76) 95 I/O 01/08/18 01/08/18 01/08/18 01/09/18 01/09/18 01/09/18 07:00 15:00 23:00 07:00 15:00 23:00 Intake Total 100 ml 240 ml Output Total 875 ml 2515 ml Balance -775 ml -2275 ml Intake Oral 240 ml IV Total 100 ml Output Urine Total 800 ml 2500 ml Drainage Total 75 ml 15 ml # Bowel Movements 1 Result Diagram: 01/09/18 0539 01/09/18 0539 Objective Remarks GENERAL: patient sitting up in bed. Appears comfortable. SKIN: Warm and dry. HEAD: Normocephalic. EYES: No scleral icterus. No injection or drainage. NECK: Supple, trachea midline. No JVD. CARDIOVASCULAR: Regular rate and rhythm without murmurs, gallops, or rubs. RESPIRATORY: Breath sounds equal bilaterally. No accessory muscle use. GASTROINTESTINAL: Abdomen soft, non-tender, nondistended. MUSCULOSKELETAL: No cyanosis, or edema. postoperative right knee dressed, drain in place. Peripheral perfusion is intact. BACK: Nontender without obvious deformity. No CVA tenderness. A/P Assessment and Plan Mr. Parra is a 62-year-old male with a history of liver cirrhosis, pancytopenia who was admitted to the hospital due to possible septic joint of the right knee. He underwent a right knee aspiration on 01/03/2018. Orthopedic surgery also evaluated patient. //Pancytopenia -Probably due to liver disease. Patient follows up with Dr. Saeed ( hematology oncologist) -Heme/Onc is following. -Patient has a GI doctor in [place] and will follow up with Dr. Pyle (GI) upon discharge. = Hemoglobin 7.6. Patient has gastropathy which requires argon laser. Family does not wish to have GI evaluation here. Will follow up with GI as outpatient. = Hemoglobin 7.5. Relatively stable. Patient and do not wish to have workup here in the hospital. Will follow up with gastroenterology as outpatient. = Hemoglobin 7.1. About stable from yesterday. We will continue to monitor. = Hemoglobin 7.2. Stable. //right knee septic joint Bacteremia with E. Coli -Currently patient does not have any fever or chills. Knee fluid culture is also growing E. Coli. -Right knee aspiration fluid WBC count was less than 50,000. -Patient is currently on ceftriaxone 2g Qday. -Continue [place], acetaminophen for pain. -Discussed with Dr. Garces. - Anesthesia expressed concern to do I&D in [place]. - We will transfer patient to the [facility] hospital. NPO midnight for I&D in the AM. = Resistant to Levaquin. Repeat blood cultures from 01/06- so far. ID following , concern for possible translocation from bowel. Pending echo appreciate ID assistance. = Pending echo. Continue antibiotics as per ID. Appreciate ID assistance //Alcoholic Liver disease -Status post ultrasound-guided paracentesis. -Continue Lasix 20mg Qday. He will likely need Spironolactone as well. = Ammonia 95. Continue on lactulose. //Hypophosphatemia. Replace and monitor. Full code. SCDs. Discharge Planning Pending echocardiogram. We will need ID clearance We will need repeat clearance. May need IV antibiotics Hopefully go home with home health maybe tomorrow. Miguel Sorensen MD Jan 09, 2018 09:36
[2018-01-09] MEDS: MORPHINE SULFATE 8 MG/ML INJ IV PUSH PRN ×3 (10:32→18:15)
[2018-01-09] MEDS ORDERED: MAGNESIUM OXIDE 400 MG TAB PO ONE (11:00)
[2018-01-09 12:00] VITALS: BP 114/58; PULSE 86; RESP 17; TEMP 97.2; O2SAT 98
[2018-01-09] MEDS: POTASSIUM PHOSPHATE/SODIUM PHOSPHATE 250 MG TAB PO SCH ×2 (13:41→21:42)
[2018-01-09 16:00] VITALS: BP 146/66; PULSE 85; RESP 17; TEMP 98.2; O2SAT 97
[2018-01-09] MEDS: SODIUM CHLOR 0.9% 1000 ML INJ 1,000 ML IV SCH (18:15)
--- NOTE | 2018-01-09 18:37 | HHI.IDPN ---
Subjective Subjective Remarks Mr. Parra is a 61-year-old man with PMHx of ? Alcoholic Liver cirrhosis, splenomegaly and pancytopenia. He reports being on water pills and undergoing paracentesis. Patient reports he was recently at 2 hospitals due to GI bleeding issues.Most recently he was at [facility] for workup of anemia and has received iron and blood transfusions for the same. He has been seen by Dr.Boon Saeed at [facility]. Despite this, he came in with a decrease in hemoglobin.He was brought in because of swelling in the right knee, which began just several days ago. Blood cultures were obtained peripherally. On admission, he had pancytopenia with white blood cell count of 3.5, hemoglobin of 6.3, platelet count of 64,000. Patient underwent a sepsis workup. Xray of his right knee revealed large effusion which was tapped and subsequently on 01/06/2018 patient underwent Irrigation and washout of septic joint. Blood cultures on admission, synovial fluid studies with E.coli pansensitive. Patient is on empiric Ceftriaxone IV and tolerating it well. He denies any overt bleeding. Denies any melena or bright red blood per rectum. He does have a history of GI bleed. He denies having fever; however, he was febrile when he came in. ID consulted for evaluation and Mment of possible sepsis, E.coli bacteremia. Overnight events reviewed No fevers No rash No diarrhea ECHO done today await report. Antibiotics Ceftriaxone IV Lines Line sites with no e.o infection Past Medical History Past Medical History 1. Alcohol abuse. 2. Cirrhosis. 3. Portal hypertension. 4. Ascites. 5. Splenomegaly. 6. Depression. 7. Hypertension. 8. Peripheral neuropathy. 9. Restless leg syndrome. 10. Cholelithiasis. 11. Degenerative disk disease. 12. history of gastrointestinal bleed. 13. History of aspiration pneumonia with respiratory failure. Past Surgical History Back surgery, neck surgery, upper endoscopy colonoscopy, paracentesis, eye surgery, spinal stimulator implant. Allergies: Coded Allergies: No Known Allergies (Unverified Allergy, Unknown, 01/03/18) Objective . Vital Signs Date Time Temp Pulse Resp B/P (MAP) Pulse Ox O2 Delivery O2 Flow Rate FiO2 01/09/18 16:00 98.2 85 17 146/66 (92) 97 01/09/18 12:00 97.2 86 17 114/58 (76) 98 6/24/18 08:00 98.0 88 17 130/61 (84) 96 01/09/18 00:00 98.6 93 17 133/60 (84) 98 01/08/18 20:00 98.9 90 17 122/60 (80) 98 01/09/18 01/09/18 01/10/18 15:00 23:00 07:00 Intake Total 100 ml 2880 ml Output Total 950 ml Balance 100 ml 1930 ml Intake Oral 2880 ml IV Total 100 ml Output Urine Total 950 ml # Bowel Movements 1 . Laboratory Tests Test 01/07/18 21:00 01/08/18 07:30 01/09/18 05:39 Hemoglobin 8.8 GM/DL 7.1 GM/DL 7.3 GM/DL White Blood Count 4.8 TH/MM3 4.9 TH/MM3 Red Blood Count 2.28 MIL/MM3 2.38 MIL/MM3 Hematocrit 21.4 % 22.4 % Mean Corpuscular Volume 93.8 FL 93.9 FL Mean Corpuscular Hemoglobin 31.2 PG 30.8 PG Mean Corpuscular Hemoglobin Concent 33.2 % 32.8 % Red Cell Distribution Width 17.6 % 17.4 % Platelet Count 108 TH/MM3 114 TH/MM3 Mean Platelet Volume 9.0 FL 9.2 FL Neutrophils (%) (Auto) 81.9 % 84.8 % Lymphocytes (%) (Auto) 10.2 % 6.3 % Monocytes (%) (Auto) 6.1 % 6.6 % Eosinophils (%) (Auto) 1.4 % 1.7 % Basophils (%) (Auto) 0.4 % 0.6 % Neutrophils # (Auto) 3.9 TH/MM3 4.1 TH/MM3 Lymphocytes # (Auto) 0.5 TH/MM3 0.3 TH/MM3 Monocytes # (Auto) 0.3 TH/MM3 0.3 TH/MM3 Eosinophils # (Auto) 0.1 TH/MM3 0.1 TH/MM3 Basophils # (Auto) 0.0 TH/MM3 0.0 TH/MM3 CBC Comment DIFF FINAL DIFF FINAL Differential Comment Laboratory Tests Test 01/08/18 07:30 01/09/18 05:39 Blood Urea Nitrogen 20 MG/DL 17 MG/DL Creatinine 0.88 MG/DL 0.88 MG/DL Random Glucose 105 MG/DL 103 MG/DL Albumin 1.8 GM/DL 2.0 GM/DL Calcium Level 7.6 MG/DL 7.6 MG/DL Phosphorus Level 2.2 MG/DL 1.9 MG/DL Magnesium Level 1.6 MG/DL 1.5 MG/DL Sodium Level 142 MEQ/L 141 MEQ/L Potassium Level 3.5 MEQ/L 3.7 MEQ/L Chloride Level 109 MEQ/L 109 MEQ/L Carbon Dioxide Level 21.3 MEQ/L 23.4 MEQ/L Anion Gap 12 MEQ/L 9 MEQ/L Estimat Glomerular Filtration Rate 87 ML/MIN 87 ML/MIN Microbiology Date/Time Source Procedure Growth Status 01/06/18 19:19 Blood Peripheral Aerobic Blood Culture - Preliminary NO GROWTH IN 3 DAYS Resulted 01/06/18 19:19 Blood Peripheral Anaerobic Blood Culture - Preliminary NO GROWTH IN 3 DAYS Resulted 01/06/18 19:14 Blood Peripheral Aerobic Blood Culture - Preliminary NO GROWTH IN 3 DAYS Resulted 01/06/18 19:14 Blood Peripheral Anaerobic Blood Culture - Preliminary NO GROWTH IN 3 DAYS Resulted Imaging Last Impressions Chest CT 01/08/18 Signed Impressions: CONCLUSION: 1. Bilateral alveolar infiltrates greatest in the right upper lobe. The differ ential diagnosis includes pneumonia and asymmetric pulmonary edema. 2. Bilateral gynecomastia. 3. Ascitic fluid and cirrhotic liver is upper abdomen. 4. Coronary artery calcifications. Abdomen/Pelvis CT 01/08/18 Signed Impressions: CONCLUSION: 1. Cirrhotic appearing liver with no focal lesion. 2. Moderate ascitic fluid throughout the abdomen and pelvis. 3. Small calcified gallstones layering dependently in the gallbladder. 4. Mild gaseous distention in portions the colon most characteristic of an ile us. Cyst Biopsy Asp-Paracentesis US 01/06/18 Signed Impressions: CONCLUSION: Uncomplicated paracentesis, as above. Knee X-Ray 01/03/18 Signed Impressions: CONCLUSION: Large joint effusion with mild degenerative changes in the medial lateral layo rtments. No fracture identified. Physical Exam GENERAL: This is a well-nourished, well-developed patient, in no apparent distress. SKIN: No rashes, ecchymoses or lesions. Cool and dry. HEAD: Atraumatic. Normocephalic. No temporal or scalp tenderness. EYES: Pupils equal round and reactive. Extraocular motions intact. No scleral icterus. No injection or drainage. ENT: Nose without bleeding, purulent drainage or septal hematoma. Throat without erythema, tonsillar hypertrophy or exudate. Uvula midline. Airway patent. NECK: Trachea midline. No JVD or lymphadenopathy. Supple, nontender, no meningeal signs. CARDIOVASCULAR: Regular rate and rhythm without murmurs, gallops, or rubs. RESPIRATORY: Clear to auscultation. Breath sounds equal bilaterally. No wheezes , rales, or rhonchi. GASTROINTESTINAL: Abdomen soft,distended.Fluid + MUSCULOSKELETAL: Extremities without clubbing, cyanosis, or edema. No joint tenderness, effusion, or edema noted. No calf tenderness. Negative Homans sign bilaterally. NEUROLOGICAL: Awake and alert. Cranial nerves II through XII intact. Motor and sensory grossly within normal limits. Five out of 5 muscle strength in all muscle groups. Normal speech. Psych cooperative IV line sites with no e.o infection Assessment & Plan Remarks Possible sepsis. E.coli bacteremia E.coli Septic arthritis Right knee s/p I&D 01/06/2018 Anemia on admission s/p multiple transfusions. Concern for GI bleed. Alcoholic liver cirrhosis. Recs: Continue Ceftriaxone IV US guided paracentesis in am: orders and studies entered. Follow repeat blood cultures x 2 CT chest/abd/pelvis with contrast with pulm infiltrates, ascites, cirrhosis. reviewed with pt and . 2D ECHO to r/o endocarditis. HIV screen and Hepatitis profile negative. Follow cultures Follow clinically. dw patient: explained to him the repeated GI bleeding episodes could have lead to translocation of bacteria along disrupted GI mucosa. dw and medical charge entry specialistBrittanie Berger MD Jan 09, 2018 18:37
[2018-01-09 20:00] VITALS: BP 138/61; PULSE 87; RESP 17; TEMP 98.8; O2SAT 98
[2018-01-10] VITALS (7 sets, daily range): BP systolic 118–138; BP diastolic 57–63; PULSE 76–82; RESP 16–18; TEMP 97.5–99.3; O2SAT 96–99
[2018-01-10] MEDS: ACETAMINOPHEN/HYDROcodone 325 MG/5 MG TAB PO PRN ×4 (02:34→23:52)
[2018-01-10] MEDS: MORPHINE SULFATE 8 MG/ML INJ IV PUSH PRN ×2 (04:12→10:48)
[2018-01-10] MEDS: POTASSIUM PHOSPHATE/SODIUM PHOSPHATE 250 MG TAB PO SCH (04:13)
[2018-01-10 07:40] LABS: AUTOMATED NEUTROPHIL # 4.6 TH/MM3 (1.8-7.7); BASOPHIL % 0.6 % (0.0-2.0); EOSINOPHIL # 0.1 TH/MM3 (0-0.4); EOSINOPHIL % 1.8 % (0.0-4.0); HEMATOCRIT 21.3 % (39.0-51.0); LYMPHOCYTE # 0.4 TH/MM3 (1.0-4.8); MEAN CELL VOLUME 94.9 FL (80.0-100.0); MEAN CORPUSCULAR HEMOGLOBIN 31.2 PG (27.0-34.0); MEAN CORPUSCULAR HGB CONC 32.8 % (32.0-36.0); MEAN PLATELET VOLUME 9.3 FL (7.0-11.0); MONO % 5.4 % (0.0-8.0); MONOCYTE # 0.3 TH/MM3 (0-0.9); NEUT % 85.2 % (16.0-70.0); PLATELET COUNT 117 TH/MM3 (150-450); RED BLOOD COUNT 2.24 MIL/MM3 (4.50-5.90); RED CELL DISTRIBUTION WIDTH 17.3 % (11.6-17.2); WHITE BLOOD COUNT 5.4 TH/MM3 (4.0-11.0)
--- NOTE | 2018-01-10 07:48 | PD.ONC.PN ---
Subjective Subjective Remarks Patient feeling tired, he still has right knee pain. He denies any chest pain or palpitation. He has no shortness of breath or cough. He denies any abdominal pain. Objective Data Date Time Temp Pulse Resp B/P (MAP) Pulse Ox O2 Delivery O2 Flow Rate FiO2 01/10/18 00:00 97.5 79 17 118/57 (77) 98 01/09/18 20:00 98.8 87 17 138/61 (86) 98 01/09/18 16:00 98.2 85 17 146/66 (92) 97 01/09/18 12:00 97.2 86 17 114/58 (76) 98 01/09/18 08:00 98.0 88 17 130/61 (84) 96 01/10/18 01/10/18 01/10/18 07:00 15:00 23:00 Intake Total 840 ml Output Total 740 ml Balance 100 ml Result Diagram: 01/10/18 0620 01/09/18 0539 Laboratory Results Laboratory Tests Test 01/10/18 06:20 White Blood Count 5.4 TH/MM3 Red Blood Count 2.24 MIL/MM3 Hemoglobin 7.0 GM/DL Hematocrit 21.3 % Mean Corpuscular Volume 94.9 FL Mean Corpuscular Hemoglobin 31.2 PG Mean Corpuscular Hemoglobin Concent 32.8 % Red Cell Distribution Width 17.3 % Platelet Count 117 TH/MM3 Mean Platelet Volume 9.3 FL Neutrophils (%) (Auto) 85.2 % Lymphocytes (%) (Auto) 7.0 % Monocytes (%) (Auto) 5.4 % Eosinophils (%) (Auto) 1.8 % Basophils (%) (Auto) 0.6 % Neutrophils # (Auto) 4.6 TH/MM3 Lymphocytes # (Auto) 0.4 TH/MM3 Monocytes # (Auto) 0.3 TH/MM3 Eosinophils # (Auto) 0.1 TH/MM3 Basophils # (Auto) 0.0 TH/MM3 CBC Comment DIFF FINAL Differential Comment Administered Medications Medications (Trade) Dose Ordered Sig/Joann Route PRN Reason Start Time Stop Time Status Last Admin Dose Admin Sodium Chloride (NS Flush) 2 ml BID IV FLUSH 01/03/18 21:00 01/08/18 09:23 Acetaminophen (Tylenol) 650 mg Q4H PRN PO TEMP > 100.4 01/03/18 13:30 01/05/18 20:10 Ferrous Sulfate (Ferrous Sulfate) 325 mg BIDPC PO 01/03/18 18:00 01/09/18 17:26 Furosemide (Lasix) 20 mg DAILY PO 01/04/18 09:00 01/09/18 09:10 Acetaminophen/ Hydrocodone Bitart ([place] 5-325 Mg) 1 tab Q6H PRN PO PAIN 01/03/18 13:45 01/10/18 02:34 Pantoprazole Sodium (Protonix) 40 mg DAILY PO 01/04/18 09:00 01/09/18 09:09 Sertraline HCl (Zoloft) 200 mg DAILY PO 01/04/18 09:00 01/09/18 09:09 Ceftriaxone Sodium 2000 mg/ Sodium Chloride 100 ml @ 200 mls/hr Q24H IV 01/05/18 10:00 01/09/18 09:16 Lactulose (Lactulose Liq) 30 ml QID PO 01/06/18 09:00 01/09/18 21:41 Morphine Sulfate (Morphine Inj) 5 mg Q4H PRN IV PUSH Breakthrough 01/06/18 14:00 01/10/18 04:12 Calcium/Vitamin D (Oscal-D 250-125) 250 mg TID PO 01/06/18 18:00 01/09/18 17:25 Multivitamins/ Minerals Therapeutic (Theragran M Tab) 1 tab DAILY PO 01/07/18 09:00 01/09/18 09:09 Objective Remarks GENERAL: Well-nourished, well-developed patient. SKIN: Warm and dry. HEAD: Normocephalic. EYES: No scleral icterus. No injection or drainage. NECK: Supple, trachea midline. No JVD or lymphadenopathy. LYMPHATIC: No adenopathy. CARDIOVASCULAR: Regular rate and rhythm without murmurs. RESPIRATORY: Breath sounds equal bilaterally. No accessory muscle use. GASTROINTESTINAL: Abdomen soft, non-tender,distended, positive fluid wave. EXTREMITIES: No cyanosis, or edema. Right knee bandage and drain noted. MUSCULOSKELETAL: Adequate muscle tone. NEUROLOGICAL: No obvious focal deficit. Awake, alert, and oriented x3. PSYCHIATRIC: Appropriate mood and affect; insight and judgment normal. Assessment/Plan Problem List: (1) Pancytopenia ICD Codes: D61.818 - Other pancytopenia Status: Chronic Plan: --Due to liver cirrhosis and splenomegaly. --s/p 2 units of packed red blood cell transfusion on 01/04 --hemoccult positive--GI was consulted but patient/ do not want GI workup done at this time. -Hemoglobin trended down slowly. It is 7.0 today and will give him 1 unit of PRBC transfusion. (2) Liver cirrhosis ICD Codes: K74.60 - Unspecified cirrhosis of liver Status: Chronic (3) Portal hypertension ICD Codes: K76.6 - Portal hypertension Status: Chronic Plan: He has splenomegaly. (4) Septic joint of right knee joint ICD Codes: M00.9 - Pyogenic arthritis, unspecified Status: Acute Plan: --s/p I&D on 01/06 -- Joint effusion culture grew E. coli. He is on antibiotic per primary team. Plan 1. monitor CBC 2. Transfuse 1 unit of PRBC today. Problem Qualifiers (1) Septic joint of right knee joint: Qualified Codes: M00.9 - Pyogenic arthritis, unspecified Santiago Saeed MD Jan 10, 2018 07:47
[2018-01-10] MEDS ORDERED: SODIUM CHLOR 0.9% 250 ML INJ 250 ML IV ONE (08:00)
[2018-01-10 08:02] LABS: ALBUMIN 1.9 GM/DL (3.4-5.0); BICARBONATE 20.7 MEQ/L (21.0-32.0); CALCIUM 7.4 MG/DL (8.5-10.1); CREATININE 0.78 MG/DL (0.60-1.30); MAGNESIUM 1.7 MG/DL (1.5-2.5); PHOSPHORUS 2.2 MG/DL (2.5-4.9)
--- NOTE | 2018-01-10 08:52 | ECHRPT ---
Indication: POSS SEPSIS, ENDOCARDITIS CONCLUSIONS Normal left ventricular size. Mild concentric left ventricular hypertrophy. The left ventricular systolic function is hyperdynamic with an estimated ejection fraction in the ra nge of 65- 70%. Mild mitral annular calcification. Trace mitral valve regurgitation. Technically difficult study BP: / HR: Rhythm: Sinus MEASUREMENTS (Male / Female) Normal Values Technical Quality:Very technically difficult study 2D ECHO LV Diastolic Diameter PLAX 5.4 cm 4.2 - 5.9 / 3.9 - 5.3 cm LV Systolic Diameter PLAX 3.7 cm IVS Diastolic Thickness 1.2 cm 0.6 - 1.0 / 0.6 - 0.9 cm LVPW Diastolic Thickness 1.2 cm 0.6 - 1.0 / 0.6 - 0.9 cm LV Relative Wall Thickness 0.4 RV Internal Dim ED PLAX 2.0 cm LVOT Diameter 2.2 cm Aortic Root Diameter 3.4 cm LA Systolic Diameter LX 3.8 cm 3.0 - 4.0 / 2.7 - 3.8 cm DOPPLER AV Peak Velocity 203.0 cm/s AV Peak Gradient 16.5 mmHg AV Mean Gradient 7.0 mmHg AV Velocity Time Integral 39.5 cm LVOT Peak Velocity 70.7 cm/s LVOT Peak Gradient 2.0 mmHg LVOT Velocity Time Integral 12.7 cm AV Area Cont Eq vti 1.2 cm AV Area Cont Eq pk 1.3 cm Mitral E Point Velocity 80.9 cm/s Mitral A Point Velocity 77.5 cm/s Mitral E to A Ratio 1.0 LV E' Lateral Velocity 17.1 cm/s Mitral E to LV E' Lateral Ratio 4.7 LV E' Septal Velocity 14.3 cm/s Mitral E to LV E' Septal Ratio 5.7 FINDINGS LEFT VENTRICLE Normal left ventricular size. Mild concentric left ventricular hypertrophy. The left ventricular systolic function is hyperdynamic with an estimated ejection fraction in the ra nge of 65- 70%. RIGHT VENTRICLE Normal right ventricular size and systolic function. LEFT ATRIUM The left atrial size is normal. RIGHT ATRIUM The right atrial size is normal. ATRIAL SEPTUM No atrial level shunt is demonstrated by color flow Doppler interrogation. AORTA The aortic root and proximal ascending aorta are not well visualized. MITRAL VALVE Mild mitral annular calcification. Trace mitral valve regurgitation. AORTIC VALVE No aortic valve stenosis or regurgitation. TRICUSPID VALVE No tricuspid valve stenosis or regurgitation. PULMONARY VALVE The pulmonary valve is not well visualized. VESSELS The inferior vena cava was not well visualized. PERICARDIUM No pericardial effusion. Thomas Castellanos MD (Electronically Signed) Final Date:10 January 2018 08:51
[2018-01-10] MEDS: SODIUM CHLORIDE 0.9% FLUSH 10 ML FLUSH IV FLUSH SCH ×2 (09:00→21:00)
[2018-01-10] MEDS: FERROUS SULFATE 325 MG (65 MG ELEMENTAL IRON) TAB PO SCH ×2 (09:09→16:26)
[2018-01-10] MEDS: cefTRIAXone INJ 2,000 MG in SODIUM CHLORIDE 0.9% INJ 100 ML IV SCH (09:09)
[2018-01-10] MEDS: SERTRALINE HCL 100 MG TAB PO SCH (09:09)
[2018-01-10] MEDS: FUROSEMIDE 20 MG TAB PO SCH (09:09)
[2018-01-10] MEDS: MULTIVITAMINS/MINERALS THERAPEUTIC TAB PO SCH (09:09)
[2018-01-10] MEDS: CALCIUM/VITAMIN D 250 MG/125 U TAB PO SCH ×3 (09:09→16:26)
[2018-01-10] MEDS: PANTOPRAZOLE SOD 40 MG DELAYED RELEASE TAB PO SCH (09:09)
[2018-01-10] MEDS: LACTULOSE SYRUP 20 GM/30 ML CUP PO SCH ×4 (09:09→21:00)
--- NOTE | 2018-01-10 10:58 | HHI.PR ---
Subjective Remarks Patient with continued right knee pain. Denies any chest pain shortness of breath. Denies nausea or vomiting. Abdominal distention, however denies any pain. Objective Vital Signs Date Time Temp Pulse Resp B/P (MAP) Pulse Ox O2 Delivery O2 Flow Rate FiO2 01/10/18 00:00 97.5 79 17 118/57 (77) 98 01/09/18 20:00 98.8 87 17 138/61 (86) 98 01/09/18 16:00 98.2 85 17 146/66 (92) 97 01/09/18 12:00 97.2 86 17 114/58 (76) 98 I/O 01/09/18 01/09/18 01/09/18 01/10/18 01/10/18 01/10/18 07:00 15:00 23:00 07:00 15:00 23:00 Intake Total 240 ml 100 ml 2880 ml 840 ml Output Total 2515 ml 950 ml 740 ml Balance -2275 ml 100 ml 1930 ml 100 ml Intake Oral 240 ml 2880 ml 240 ml IV Total 100 ml 600 ml Output Urine Total 2500 ml 950 ml 700 ml Drainage Total 15 ml 40 ml # Voids 1 # Bowel Movements 1 1 0 Result Diagram: 01/10/1861901/10/18619 Objective Remarks GENERAL: patient sitting up in bed. Appears comfortable. SKIN: Warm and dry. HEAD: Normocephalic. EYES: No scleral icterus. No injection or drainage. NECK: Supple, trachea midline. No JVD. CARDIOVASCULAR: Regular rate and rhythm without murmurs, gallops, or rubs. RESPIRATORY: Breath sounds equal bilaterally. No accessory muscle use. GASTROINTESTINAL: Abdomen soft, non-tender, nondistended. Patient does have ascites. Hyperresonant, however patient burps upon sitting up. MUSCULOSKELETAL: No cyanosis, or edema. postoperative right knee dressed, drain in place. Peripheral perfusion is intact. Exam unchanged. BACK: Nontender without obvious deformity. No CVA tenderness. A/P Assessment and Plan Mr. Parra is a 62-year-old male with a history of liver cirrhosis, pancytopenia who was admitted to the hospital due to possible septic joint of the right knee. He underwent a right knee aspiration on 01/03/2018. Orthopedic surgery also evaluated patient. //Pancytopenia -Probably due to liver disease. Patient follows up with Dr. Saeed ( hematology oncologist) -Heme/Onc is following. -Patient has a GI doctor in [place] and will follow up with Dr. Pyle (GI) upon discharge. = Hemoglobin 7.6. Patient has gastropathy which requires argon laser. Family does not wish to have GI evaluation here. Will follow up with GI as outpatient. = Hemoglobin 7.5. Relatively stable. Patient and do not wish to have workup here in the hospital. Will follow up with gastroenterology as outpatient. = Hemoglobin 7.1. About stable from yesterday. We will continue to monitor. = Hemoglobin 7.0. Slow down trend. Transfusion ordered by hematology. //right knee septic joint Bacteremia with E. Coli -Currently patient does not have any fever or chills. Knee fluid culture is also growing E. Coli. -Right knee aspiration fluid WBC count was less than 50,000. -Patient is currently on ceftriaxone 2g Qday. -Continue [place], acetaminophen for pain. -Discussed with Dr. Garces. - Anesthesia expressed concern to do I&D in [place]. - We will transfer patient to the [facility] hospital. NPO midnight for I&D in the AM. = Resistant to Levaquin. Repeat blood cultures from 01/06- so far. ID following , concern for possible translocation from bowel. Pending echo appreciate ID assistance. = Echo negative for thrombus or vegetation. Continue antibiotics as per ID. Pending paracentesis. Appreciate ID assistance //Alcoholic Liver disease -Status post ultrasound-guided paracentesis. -Continue Lasix 20mg Qday. He will likely need Spironolactone as well. = Ammonia 95. Continue on lactulose. //Hypophosphatemia. Replace and monitor. Full code. SCDs. Discharge Planning Pending paracentesis. We will need ID clearance We will need repeat clearance. May need IV antibiotics Hopefully go home with home health when cleared by ID. Miguel Sorensen MD Jan 10, 2018 10:58
[2018-01-10] MEDS ORDERED: POTASSIUM CHLORIDE 20 MEQ CONTROLLED RELEASE TAB PO ONE (11:00)
--- NOTE | 2018-01-10 15:18 | RADRPT ---
EXAM DATE: 01/10/2018 10:22 AM EDT AGE/SEX: 62 years / Male INDICATIONS: Ascites. CLINICAL DATA: This is the patient's subsequent encounter. Patient reports that signs and symptoms h ave been present for 4 - 6 days and indicates a pain score of 6/10. MEDICAL/SURGICAL HISTORY: Hypertension. Gastroesophageal reflux disease. Glasses. Tremors. Res tless leg syndrome. Left pleural effusion. Tachycardia. Bilateral inguinal hernia. GI bleed. Hepatic encephalopathy. Arthritis. Depression. Anxiety. Sepsis. Aenmia. Tonsillectomy. Bilateral cataract reyes rgery. Back surgery. Neck surgery. Left knee replacement. Right knee incision and drainage. COMPARISON: No prior exams available for comparison. FINDINGS: Very small amount of residual ascites in this patient with history of recent paracentesis. Overall, t here is insufficient volume of fluid for safe paracentesis. CONCLUSION: 1. Very small residual ascites with insufficient volume for safe paracentesis at this time. Electronically signed by: Prabhu Ham MD 01/10/2018 3:17 PM EDT
[2018-01-11] VITALS: BP 119/57; PULSE 80; RESP 18; TEMP 97.9; O2SAT 98
[2018-01-11] MEDS: MORPHINE SULFATE 8 MG/ML INJ IV PUSH PRN (01:04)
[2018-01-11] MEDS: PANTOPRAZOLE SOD 40 MG DELAYED RELEASE TAB PO SCH (07:42)
[2018-01-11] MEDS: FUROSEMIDE 20 MG TAB PO SCH (07:42)
[2018-01-11] MEDS: SERTRALINE HCL 100 MG TAB PO SCH (07:42)
[2018-01-11] MEDS: LACTULOSE SYRUP 20 GM/30 ML CUP PO SCH ×2 (07:42→13:00)
[2018-01-11] MEDS: FERROUS SULFATE 325 MG (65 MG ELEMENTAL IRON) TAB PO SCH (07:42)
[2018-01-11] MEDS: CALCIUM/VITAMIN D 250 MG/125 U TAB PO SCH ×2 (07:42→13:28)
[2018-01-11] MEDS: MULTIVITAMINS/MINERALS THERAPEUTIC TAB PO SCH (07:42)
[2018-01-11] MEDS: ACETAMINOPHEN/HYDROcodone 325 MG/5 MG TAB PO PRN ×2 (07:43→13:40)
[2018-01-11] MEDS: SODIUM CHLORIDE 0.9% FLUSH 10 ML FLUSH IV FLUSH SCH (07:43)
[2018-01-11 08:00] VITALS: BP 140/62; PULSE 78; RESP 18; TEMP 98.4; O2SAT 98
--- NOTE | 2018-01-11 09:00 | HHI.FF ---
cc: Fide Patel MD Infusion Therapy Location of Infusion Therapy: Home Health Care IV Infusion Order Patient Information Patient Weight 91 kg Diagnosis: Coded Allergies: No Known Allergies (Unverified Allergy, Unknown, 01/03/18) Administer Medication Ceftriaxone 2 grams IV q 24 hours Start Treatment: Jan 11, 2018 Stop Treatment: Feb 09, 2018 Additional Information Venous access: PICC Line Additional Instructions [x] Peripheral flush and dressing changes per protocol [x] Implanted port and central hot top liner: * Implanted port: 10 ml Normal Saline followed by 5 ml Heparin 100 units/ml Heparin flush after each use and monthly to maintain. [] May leave port accessed during therapy. [] May leave peripheral site accessed for duration of therapy. [x] If patient has SOB or respiratory distress, check oxygen saturation. If less than 90% or clinical signs of respiratory distress, administer oxygen at 2 L/min. via nasal cannula and notify physician. [x] Anaphylaxis/Reaction orders: * Stop infusion. * Keep IV line open with saline flush. * Notify physician. * Monitor vital signs every 15 minutes until symptoms resolve. * Check Oxygen saturation; Oxygen at 2 L/min. via nasal cannula if less than 90% or clinical signs of respiratory distress. * Administer diphenhydramine (Benadryl) 25 mg IV STAT, (unless patient has received as pre-med). May repeat once, if necessary. * Solu-Cortef 250 mg IVP over 30-60 seconds, use 100 mg vials for each dissolution. * Epinephrine (1mg/1 ml) 0.3 mg subcutaneously or IVP now with any signs of respiratory distress. * Check with physician for new additional pre-med orders if patient is re- challenged or re-treated. [x] May remove PICC line when treatment complete, after confirming with Physician. [x] If the patient is admitted to the hospital, the ED, or transferred via [facility] , complete transfer form including medication reconciliation order sheet. Laboratory Tests Weekly Labs: CBC w/diff, Creatinine, CRP, LFT's (Hepatic function test) (or midline) Additional Information Please draw weekly labs, fax to the numbers below. Please call with abnormal labs, change in clinical condition or problems to: Dr.Reba Patel or Myke Null or covering [place] Physician Follow up appt: Patient to schedule follow up appt with Dr.Reba Patel within 2 weeks post discharge. Follow up with PCP Follow up with other MDs as planned. Counseling: Counseled about medication side effects Counseled about PICC line care and hand hygiene. Brittanie Stringer MD Jan 11, 2018 09:00
[2018-01-11] MEDS ORDERED: EPIN1INJ21 SQ (09:03)
[2018-01-11] MEDS ORDERED: SOLU250I IV PUSH (09:03)
[2018-01-11] MEDS ORDERED: EPIN1INJ21 IV PUSH (09:03)
[2018-01-11] MEDS ORDERED: CEFT2INJ IV (09:03)
--- NOTE | 2018-01-11 09:13 | HHI.PR ---
Subjective Remarks Patient is a feeling right. Reports knee pain is controlled. Denies any chest pain or shortness of breath. Denies nausea or vomiting. Objective Vital Signs Date Time Temp Pulse Resp B/P (MAP) Pulse Ox O2 Delivery O2 Flow Rate FiO2 01/11/18 08:00 98.4 78 18 140/62 (88) 98 01/11/18 00:00 97.9 80 18 119/57 (77) 98 01/10/18 21:19 98.3 79 18 123/57 98 01/10/18 20:00 98.3 79 18 123/57 (79) 98 01/10/18 17:15 99.3 81 16 131/61 99 01/10/18 16:58 99.2 80 16 127/59 99 01/10/18 12:00 97.9 82 16 120/60 (80) 96 I/O 01/10/18 01/10/18 01/10/18 01/11/18 01/11/18 01/11/18 07:00 15:00 23:00 07:00 15:00 23:00 Intake Total 840 ml 100 ml 402 ml Output Total 740 ml 1400 ml Balance 100 ml 100 ml 402 ml -1400 ml Intake Oral 240 ml IV Total 600 ml 100 ml Packed Cells 400 ml Blood Product IV Normal Saline Flush 2 ml Output Urine Total 700 ml 1400 ml Drainage Total 40 ml # Voids 1 # Bowel Movements 0 1 1 Result Diagram: 01/10/18 0620 01/10/18 06 Objective Remarks GENERAL: patient sitting up in bed. Appears comfortable. SKIN: Warm and dry. HEAD: Normocephalic. EYES: No scleral icterus. No injection or drainage. NECK: Supple, trachea midline. No JVD. CARDIOVASCULAR: Regular rate and rhythm without murmurs, gallops, or rubs. RESPIRATORY: Breath sounds equal bilaterally. No accessory muscle use. GASTROINTESTINAL: Abdomen soft, non-tender, nondistended. Patient does have ascites. Hyperresonant, however patient burps upon sitting up. MUSCULOSKELETAL: No cyanosis, or edema. postoperative right knee dressed, drain in place. Peripheral perfusion is intact. Exam unchanged. BACK: Nontender without obvious deformity. No CVA tenderness. A/P Assessment and Plan Mr. Parra is a 62-year-old male with a history of liver cirrhosis, pancytopenia who was admitted to the hospital due to possible septic joint of the right knee. He underwent a right knee aspiration on 01/03/2018. Orthopedic surgery also evaluated patient. //Pancytopenia -Probably due to liver disease. Patient follows up with Dr. Saeed ( hematology oncologist) -Heme/Onc is following. -Patient has a GI doctor in [place] and will follow up with Dr. Pyle (GI) upon discharge. = Hemoglobin 7.6. Patient has gastropathy which requires argon laser. Family does not wish to have GI evaluation here. Will follow up with GI as outpatient. = Hemoglobin 7.5. Relatively stable. Patient and do not wish to have workup here in the hospital. Will follow up with gastroenterology as outpatient. = Hemoglobin 7.1. About stable from yesterday. We will continue to monitor. = Hemoglobin 7.0. Slow down trend. Transfusion ordered by hematology. = A.m. CBC is pending. Follow-up with Dr. Saeed as outpatient. //right knee septic joint Bacteremia with E. Coli -Currently patient does not have any fever or chills. Knee fluid culture is also growing E. Coli. -Right knee aspiration fluid WBC count was less than 50,000. -Patient is currently on ceftriaxone 2g Qday. -Continue [place], acetaminophen for pain. -Discussed with Dr. Garces. - Anesthesia expressed concern to do I&D in [place]. - We will transfer patient to the main hospital. NPO midnight for I&D in the AM. = Resistant to Levaquin. Repeat blood cultures from 01/06- so far. ID following , concern for possible translocation from bowel. Pending echo appreciate ID assistance. = Echo negative for thrombus or vegetation. Continue antibiotics as per ID. Pending paracentesis. Appreciate ID assistance = Home antibiotics to complete treatment as per ID. Appreciate assistance. //Alcoholic Liver disease -Status post ultrasound-guided paracentesis. -Continue Lasix 20mg Qday. He will likely need Spironolactone as well. = Ammonia 95. Continue on lactulose. //Hypophosphatemia. Phosphorus 2.2 yesterday. Acceptable. Full code. SCDs. Discharge Planning Paracentesis unable to be performed. Cleared by ID to go home on IV antibiotics to complete treatment course. Follow-up with orthopedics as outpatient Follow-up with gastroenterology as outpatient Follow-up with hematology as outpatient. Miguel Sorensen MD Jan 11, 2018 09:13
--- NOTE | 2018-01-11 09:14 | HHI.PR ---
Addendum to Inpatient Note Addendum Reason: Additional Documentation Additional Information informs me paracentesis could not be performed due to low volume. ECHO no vegetations. BCX neg Recs PICC order placed. Ok to replace with midline if appropriate. Infusion orders in chart. Case Management to help. office notified re: need for follow up. will relay plan to pt and family. Will sign off please call back if any change in clinical condition or questions. Brittanie Stringer MD Jan 11, 2018 09:14
--- NOTE | 2018-01-11 09:20 | HHI.DS ---
Discharge Summary Admission Date Jan 03, 2018 at 13:38 Discharge Date: Jan 11, 2018 Admitting Diagnosis Possible septic joint, hypotension (1) Pancytopenia ICD Code: D61.818 - Other pancytopenia Status: Chronic (2) Septic joint of right knee joint ICD Code: M00.9 - Pyogenic arthritis, unspecified Status: Acute (3) Hypotension ICD Code: I95.9 - Hypotension, unspecified (4) Depression ICD Code: F32.9 - Major depressive disorder, single episode, unspecified Status: Chronic (5) Liver cirrhosis ICD Code: K74.60 - Unspecified cirrhosis of liver Status: Chronic Procedures Right knee aspiration 01/03/2018. 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 He came to the hospital because of right knee pain which has been severe over the last 6 days. He notes no fevers or chills but noted that the knee Swelling he could not flex it or extend it. He actually fell on the knee. Went to the emergency room at another facility and was discharged on [place]. He has a known history of degenerative joint disease in both knees and has had left knee replacement in the past. The knee is quite swollen with effusion. Patient admits to fever at home and he has been hypotensive here. He has chronic leukopenia and thrombocytopenia. Patient has elevated inflammatory markers and appears to be septic. He has been admitted to the hospital for further antibiotics. Joint aspiration was done in the emergency room and there is evidence of white cells. CBC/BMP: 01/10/18 0620 01/10/18 0620 Significant Findings Laboratory Tests Test 01/09/18 05:39 01/10/18 06:20 Red Blood Count 2.38 MIL/MM3 (4.50-5.90) 2.24 MIL/MM3 (4.50-5.90) Hemoglobin 7.3 GM/DL (13.0-17.0) 7.0 GM/DL (13.0-17.0) Hematocrit 22.4 % (39.0-51.0) 21.3 % (39.0-51.0) Red Cell Distribution Width 17.4 % (11.6-17.2) 17.3 % (11.6-17.2) Platelet Count 114 TH/MM3 (150-450) 117 TH/MM3 (150-450) Neutrophils (%) (Auto) 84.8 % (16.0-70.0) 85.2 % (16.0-70.0) Lymphocytes (%) (Auto) 6.3 % (9.0-44.0) 7.0 % (9.0-44.0) Lymphocytes # (Auto) 0.3 TH/MM3 (1.0-4.8) 0.4 TH/MM3 (1.0-4.8) Albumin 2.0 GM/DL (3.4-5.0) 1.9 GM/DL (3.4-5.0) Calcium Level 7.6 MG/DL (8.5-10.1) 7.4 MG/DL (8.5-10.1) Phosphorus Level 1.9 MG/DL (2.5-4.9) 2.2 MG/DL (2.5-4.9) Chloride Level 109 MEQ/L (98-107) 110 MEQ/L (98-107) Estimat Glomerular Filtration Rate 87 ML/MIN (>89) Random Glucose 111 MG/DL (74-106) Potassium Level 3.3 MEQ/L (3.5-5.1) Carbon Dioxide Level 20.7 MEQ/L (21.0-32.0) Imaging Last Impressions Abdomen Ultrasound 01/10/18 Signed Impressions: CONCLUSION: 1. Very small residual ascites with insufficient volume for safe paracentesis at this time. Chest CT 01/08/18 Signed Impressions: CONCLUSION: 1. Bilateral alveolar infiltrates greatest in the right upper lobe. The differ ential diagnosis includes pneumonia and asymmetric pulmonary edema. 2. Bilateral gynecomastia. 3. Ascitic fluid and cirrhotic liver is upper abdomen. 4. Coronary artery calcifications. Abdomen/Pelvis CT 01/08/18 Signed Impressions: CONCLUSION: 1. Cirrhotic appearing liver with no focal lesion. 2. Moderate ascitic fluid throughout the abdomen and pelvis. 3. Small calcified gallstones layering dependently in the gallbladder. 4. Mild gaseous distention in portions the colon most characteristic of an ile us. Cyst Biopsy Asp-Paracentesis US 01/06/18 0000 Signed Impressions: CONCLUSION: Uncomplicated paracentesis, as above. Knee X-Ray 01/03/18 0000 Signed Impressions: CONCLUSION: Large joint effusion with mild degenerative changes in the medial lateral layo rtments. No fracture identified. PE at Discharge GENERAL: Alert, oriented 3, NAD. SKIN: Warm and dry. HEAD: Normocephalic. EYES: No scleral icterus. No injection or drainage. NECK: Supple, trachea midline. No JVD or lymphadenopathy. CARDIOVASCULAR: Regular rate and rhythm without murmurs, gallops, or rubs. RESPIRATORY: Breath sounds equal bilaterally. No accessory muscle use. GASTROINTESTINAL: Abdomen soft, non-tender, Mildly distended. MUSCULOSKELETAL: No cyanosis, or edema. Right knee shows no erythematous lesion , swelling is present and tender to palpation. BACK: Nontender without obvious deformity. No CVA tenderness. Hospital Course Mr. Parra is a 62-year-old male with a history of liver cirrhosis, pancytopenia who was admitted to the hospital due to possible septic joint of the right knee. He underwent a right knee aspiration on 01/03/2018. Orthopedic surgery also evaluated patient and placed drain. Wound cultures positive for E. coli, as well as 4 out of 4 blood cultures positive for E. coli. Infectious disease was consulted. CT abdomen with no obvious site of acute infection. Echocardiogram negative for vegetation. Patient was managed on broad-spectrum antibiotics, with repeat blood cultures negative. Patient will continue on ceftriaxone via PICC line for 4 weeks to complete treatment course as per ID recommendations. Patient did experience worsening in chronic anemia with hemoglobin down to 6.3 during admission. Likely secondary to multiple factors including thrombocytopenia, portal hypertensive bleeding gastropathy. Positive Hemoccult. GI followed, however family does not want GI to scope patient (he needs argon laser for portal hypertensive gastropathy bleeding). Status post 2 units PRBCs previously during hospitalization, as well as 1 unit on 01/10. For problem based summary from most recent progress note, please see below. //Pancytopenia //Acute on chronic blood loss anemia -Anemia likely secondary to multiple factors including thrombocytopenia, portal hypertensive bleeding gastropathy. Positive Hemoccult. GI followed, however family does not want GI to scope patient. Status post 2 units PRBCs previously during hospitalization, as well as 1 unit on 01/10. Patient follows up with Dr. Saeed (hematology oncologist) -Heme/Onc is following. -Patient has a GI doctor in [place] and will follow up with Dr. Pyle (GI) upon discharge. = Hemoglobin 7.6. Patient has gastropathy which requires argon laser. Family does not wish to have GI evaluation here. Will follow up with GI as outpatient. = Hemoglobin 7.5. Relatively stable. Patient and do not wish to have workup here in the hospital. Will follow up with gastroenterology as outpatient. = Hemoglobin 7.1. About stable from yesterday. We will continue to monitor. = Hemoglobin 7.0. Slow down trend. Transfusion ordered by hematology. = A.m. CBC is pending. Follow-up with Dr. Saeed as outpatient. //right knee septic joint Bacteremia with E. Coli -Currently patient does not have any fever or chills. Knee fluid culture is also growing E. Coli. -Right knee aspiration fluid WBC count was less than 50,000. -Patient is currently on ceftriaxone 2g Qday. -Continue [place], acetaminophen for pain. -Discussed with Dr. Garces. - Anesthesia expressed concern to do I&D in [place]. - We will transfer patient to the main hospital. NPO midnight for I&D in the AM. = Resistant to Levaquin. Repeat blood cultures from 01/06- so far. ID following , concern for possible translocation from bowel. Pending echo appreciate ID assistance. = Echo negative for thrombus or vegetation. Continue antibiotics as per ID. Pending paracentesis. Appreciate ID assistance = Home antibiotics to complete treatment as per ID. Appreciate assistance. //Alcoholic Liver disease -Status post ultrasound-guided paracentesis. -Continue Lasix 20mg Qday. He will likely need Spironolactone as well. = Ammonia 95. Continue on lactulose. //Hypophosphatemia. Phosphorus 2.2 yesterday. Acceptable. Full code. SCDs. Discharge Planning Paracentesis unable to be performed. Cleared by ID to go home on IV antibiotics to complete treatment course. Follow-up with orthopedics as outpatient Follow-up with gastroenterology as outpatient Follow-up with hematology as outpatient. Pt Condition on Discharge: Good Discharge Disposition: Disch w/ Home Health Serv Discharge Time: > 30 minutes Discharge Instructions DIET: Follow Instructions for: Heart Healthy Diet Activities you can perform: Partial Weight Bearing Follow up Referrals: Appointment for Follow Up - 2 Weeks @ [facility] with Fide Patel MD Gastroenterology - 1 Week Orthopedics - 1 Week with Mervin Fuentes MD PCP Follow-up - 1 Week with Prabhakar Ashley M.d. New Orders: CBC WITH DIFF - 2-3 Days COMP MET PROF (CMP) - 2-3 Days New Medications: Ceftriaxone Inj (Ceftriaxone Inj) 2 Gram Inj 2 GM IV Q24H for Infection for 28 Days, VIAL 0 Refills Epinephrine Inj (Epinephrine Inj) 1 Mg/Ml (1 Ml) Inj 0.3 MG IV PUSH ONCE PRN for ALLERGIC REACTION, #1 VIAL Epinephrine Inj (Epinephrine Inj) 1 Mg/Ml (1 Ml) Inj 0.3 MG SQ ONCE PRN for ALLERGIC REACTION, #1 VIAL Give with any signs of respiratory distress. Hydrocortisone Inj (Solu-Cortef Inj) 250 Mg/2 Ml Inj 250 MG IV PUSH ONCE PRN for ALLERGIC REACTION, #1 VIAL 0 Refills Give over 30-60 seconds. Walker with Front Wheels (Walker with Front Wheels) 1 Mis Mis EA .XX DIRECTED, #1 0 Refills Continued Medications: Calcium Carbonate-Cholecalciferol (Calcium 600 with Vitamin D) 600-400 mg-Unit Tab 1 TAB PO DAILY for Calcium Supplement, TAB 0 Refills Cyanocobalamin (Vitamin B-12) 1,000 Mcg Tab 1500 MCG PO DAILY for Nutritional Supplement, #1 BOTTLE 0 Refills Ferrous Sulfate (Ferrous Sulfate) 325 Mg (65 Mg Iron) Tablet 325 MG PO BIDPC for Nutritional Supplement, #60 TAB 0 Refills Furosemide (Furosemide) 20 Mg Tab 20 MG PO DAILY for Blood Pressure Management, #30 TAB Hydrocodone-Acetaminophen ([place]) 5 Mg-325 Mg Tab 1 TAB PO Q6H PRN for PAIN, TAB 0 Refills Lactulose Liq (Lactulose Liq) 10 Gm/15 Ml Soln 30 ML PO BID PRN for ABDOMINAL PAIN, ML 0 Refills Magnesium Oxide (Magnesium Oxide) 241.3 Mg Tab 400 MG PO DAILY for Nutritional Supplement for 30 Days, TAB Pantoprazole (Pantoprazole) 40 Mg Tab 40 MG PO DAILY for Reflux, #30 TAB Pramipexole (Mirapex) 0.5 Mg Tab 0.5 MG PO BID PRN for rls, #60 TAB 0 Refills Propranolol (Propranolol) 10 Mg Tab 10 MG PO Q12HR for Blood Pressure Management, #60 TAB Sertraline (Zoloft) 100 Mg Tab 200 MG PO DAILY, #30 TAB 0 Refills Miguel Sorensen MD Jan 11, 2018 09:20
[2018-01-11] MEDS ORDERED: PROPRANOLOL HCL 10 MG TAB PO SCH (09:30)
[2018-01-11] MEDS: cefTRIAXone INJ 2,000 MG in SODIUM CHLORIDE 0.9% INJ 100 ML IV SCH (10:22)
[2018-01-11 10:31] LABS: AUTOMATED NEUTROPHIL # 4.9 TH/MM3 (1.8-7.7); BASOPHIL % 0.7 % (0.0-2.0); EOSINOPHIL # 0.1 TH/MM3 (0-0.4); EOSINOPHIL % 1.9 % (0.0-4.0); HEMATOCRIT 25.9 % (39.0-51.0); HEMOGLOBIN 8.6 GM/DL (13.0-17.0); LYMPH % 6.1 % (9.0-44.0); LYMPHOCYTE # 0.3 TH/MM3 (1.0-4.8); MEAN CELL VOLUME 94.2 FL (80.0-100.0); MEAN CORPUSCULAR HEMOGLOBIN 31.4 PG (27.0-34.0); MEAN CORPUSCULAR HGB CONC 33.3 % (32.0-36.0); MEAN PLATELET VOLUME 9.1 FL (7.0-11.0); MONO % 4.5 % (0.0-8.0); MONOCYTE # 0.3 TH/MM3 (0-0.9); NEUT % 86.8 % (16.0-70.0); PLATELET COUNT 138 TH/MM3 (150-450); RED BLOOD COUNT 2.75 MIL/MM3 (4.50-5.90); RED CELL DISTRIBUTION WIDTH 17.6 % (11.6-17.2); WHITE BLOOD COUNT 5.6 TH/MM3 (4.0-11.0)
--- NOTE | 2018-01-11 10:43 | PD.ONC.PN ---
Subjective Subjective Remarks Afebrile overnight. patient resting in room. still having pain in right knee. s/p blood transfusion yesterday. denies dizziness. Objective Data Date Time Temp Pulse Resp B/P (MAP) Pulse Ox O2 Delivery O2 Flow Rate FiO2 01/11/18 08:00 98.4 78 18 140/62 (88) 98 01/11/18 00:00 97.9 80 18 119/57 (77) 98 01/10/18 21:19 98.3 79 18 123/57 98 01/10/18 20:00 98.3 79 18 123/57 (79) 98 01/10/18 17:15 99.3 81 16 131/61 99 01/10/18 16:58 99.2 80 16 127/59 99 01/10/18 12:00 97.9 82 16 120/60 (80) 96 01/11/18 01/11/18 01/11/18 06:59 14:59 22:59 Output Total 1400 ml Balance -1400 ml Result Diagram: 01/10/1861901/10/18619 Laboratory Results Laboratory Tests Test 01/11/18 09:46 Administered Medications Medications (Trade) Dose Ordered Sig/Joann Route PRN Reason Start Time Stop Time Status Last Admin Dose Admin Sodium Chloride (NS Flush) 2 ml BID IV FLUSH 01/03/18 21:00 01/11/18 07:43 Acetaminophen (Tylenol) 650 mg Q4H PRN PO TEMP > 100.4 01/03/18 13:30 01/05/18 20:10 Ferrous Sulfate (Ferrous Sulfate) 325 mg BIDPC PO 01/03/18 18:00 01/11/18 07:42 Furosemide (Lasix) 20 mg DAILY PO 01/04/18 09:00 01/11/18 07:42 Acetaminophen/ Hydrocodone Bitart ([place] 5-325 Mg) 1 tab Q6H PRN PO PAIN 01/03/18 13:45 01/11/18 07:43 Pantoprazole Sodium (Protonix) 40 mg DAILY PO 01/04/18 09:00 01/11/18 07:42 Sertraline HCl (Zoloft) 200 mg DAILY PO 01/04/18 09:00 01/11/18 07:42 Acetaminophen (Tylenol) 650 mg Q4H PRN PO SEE LABEL COMMENTS 01/04/18 07:30 01/10/18 17:03 Ceftriaxone Sodium 2000 mg/ Sodium Chloride 100 ml @ 200 mls/hr Q24H IV 01/05/18 10:00 01/11/18 10:22 Lactulose (Lactulose Liq) 30 ml QID PO 01/06/18 09:00 01/11/18 07:42 Morphine Sulfate (Morphine Inj) 5 mg Q4H PRN IV PUSH Breakthrough 01/06/18 14:00 01/11/18 01:04 Calcium/Vitamin D ([place]-D 250-125) 250 mg TID PO 01/06/18 18:00 01/11/18 07:42 Multivitamins/ Minerals Therapeutic (Theragran M Tab) 1 tab DAILY PO 01/07/18 09:00 01/11/18 07:42 Propranolol HCl (Inderal) 10 mg Q12HR PO 01/11/18 09:30 01/11/18 10:22 Objective Remarks GENERAL: middle aged male, upright in bed in [facility]. SKIN: Warm and dry. HEAD: Normocephalic. EYES: No injection or drainage. NECK: Supple, trachea midline. CARDIOVASCULAR: Regular rate and rhythm RESPIRATORY: Breath sounds equal bilaterally. No accessory muscle use. GASTROINTESTINAL: Abdomen soft, non-tender, nondistended. EXTREMITIES: No cyanosis. Right knee wrapped with linus bandage, c/d/i. MUSCULOSKELETAL: Adequate muscle tone. NEUROLOGICAL: awake, alert. normal speech. moving extremities. Assessment/Plan Problem List: (1) Pancytopenia ICD Codes: D61.818 - Other pancytopenia Status: Chronic Plan: --s/p multiple blood transfusions during this hospitalization. --Due to liver cirrhosis and splenomegaly. --Hemoccult positive--GI was consulted but patient/ do not want GI workup done at this time. (2) Liver cirrhosis ICD Codes: K74.60 - Unspecified cirrhosis of liver Status: Chronic (3) Portal hypertension ICD Codes: K76.6 - Portal hypertension Status: Chronic Plan: ++splenomegaly. (4) Septic joint of right knee joint ICD Codes: M00.9 - Pyogenic arthritis, unspecified Status: Acute Plan: --s/p I&D on 01/06 -- Joint effusion culture grew E. coli. He is on antibiotic per primary team. Plan 1. check CBC today 2. continue antibiotics. Attending Statement The exam, history, and the medical decision-making described in the above note were completed with the assistance of the mid-level provider. I reviewed and agree with the findings presented. I attest that I had a [id number] encounter with the patient on the same day, and personally performed and documented my assessment and findings in the medical record. Feeling better. Hgb trended up with transfusion. Platelet also trended up. Continue to monitor. Problem Qualifiers (1) Septic joint of right knee joint: Qualified Codes: M00.9 - Pyogenic arthritis, unspecified Aditi Martinez Jan 11, 2018 10:43 Santiago Saeed MD Jan 11, 2018 11:48
[2018-01-11 12:00] VITALS: BP 128/59; PULSE 70; RESP 16; TEMP 98.2; O2SAT 99
[2018-01-11 14:06] LABS: BICARBONATE 24.9 MEQ/L (21.0-32.0); CALCIUM 7.6 MG/DL (8.5-10.1); CREATININE 0.72 MG/DL (0.60-1.30)
--- NOTE | 2018-01-11 15:39 | PD.ORT.PN ---
Subjective Subjective Remarks Stable 5 day postop. No complaints. No new issues Objective Vitals Vital Signs Date Time Temp Pulse Resp B/P (MAP) Pulse Ox O2 Delivery O2 Flow Rate FiO2 01/11/18 12:00 98.2 70 16 128/59 (82) 99 01/11/18 08:00 98.4 78 18 140/62 (88) 98 01/11/18 00:00 97.9 80 18 119/57 (77) 98 01/10/18 21:19 98.3 79 18 123/57 98 01/10/18 20:00 98.3 79 18 123/57 (79) 98 01/10/18 17:15 99.3 81 16 131/61 99 01/10/18 16:58 99.2 80 16 127/59 99 I/O 01/10/18 01/10/18 01/10/18 01/11/18 01/11/18 01/11/18 07:00 15:00 23:00 07:00 15:00 23:00 Intake Total 840 ml 100 ml 402 ml Output Total 740 ml 1400 ml Balance 100 ml 100 ml 402 ml -1400 ml Intake Oral 240 ml IV Total 600 ml 100 ml Packed Cells 400 ml Blood Product IV Normal Saline Flush 2 ml Output Urine Total 700 ml 1400 ml Drainage Total 40 ml # Voids 1 # Bowel Movements 0 1 1 Result Diagram: 01/11/18 0946 01/11/18 1310 Imaging Last [address] 01/08/18 0000 Signed Impressions: CONCLUSION: 1. Bilateral alveolar infiltrates greatest in the right upper lobe. The differ ential diagnosis includes pneumonia and asymmetric pulmonary edema. 2. Bilateral gynecomastia. 3. Ascitic fluid and cirrhotic liver is upper abdomen. 4. Coronary artery calcifications. Abdomen/Pelvis CT 01/08/18 0000 Signed Impressions: CONCLUSION: 1. Cirrhotic appearing liver with no focal lesion. 2. Moderate ascitic fluid throughout the abdomen and pelvis. 3. Small calcified gallstones layering dependently in the gallbladder. 4. Mild gaseous distention in portions the colon most characteristic of an ile us. Objective Remarks Dressing is C/D/I. + NVI. SILT distally. Drain sutured in place and intact. Patient has mild to moderate right lower extremity edema. Calf is soft and nontender. Assessment & Plan Assessment and Plan Septic arthritis of the right knee, E. coli. History of rheumatoid arthritis. History of left total knee replacement arthroplasty. SURGERY: POD #5: Arthrotomy of right knee with synovectomy PLAN: Weightbearing as tolerated. IV antibiotics per medical team/infectious disease. DC drain Daily dressing change. We will defer to medical with regard to anticoagulation. Consider Lovenox. After discharge, follow-up in [address] Mervin Fuentes for suture removal Anemia to be managed by medical. Mervin Fuentes MD Jan 11, 2018 15:39
== END 2018-01-11 17:14 | disposition home health service (06) | DRG 485 ==
LOC: PHED 09:20 → PHEDA 13:38 → PH3A 14:17 → NEPFCDU 01-06 02:54 → N07B 01-08 16:22
PROVIDERS: ADMIT Internal Medicine; ATTEND Internal Medicine
PROC: 0S9C3ZZ Drainage of Right Knee Joint, Percutaneous Approach (ICD-10-PCS; 2018-01-03)
PROC: 30233N1 Transfusion of Nonautologous Red Blood Cells into Peripheral Vein, Percutaneous Approach (ICD-10-PCS; 2018-01-04)
PROC: 0JDN0ZZ Extraction of Right Lower Leg Subcutaneous Tissue and Fascia, Open Approach (ICD-10-PCS; 2018-01-06)
PROC: 0W9G3ZZ Drainage of Peritoneal Cavity, Percutaneous Approach (ICD-10-PCS; 2018-01-06)
PROC: 0S9C00Z Drainage of Right Knee Joint with Drainage Device, Open Approach (ICD-10-PCS; principal; 2018-01-06 13:15)
DX: M00.861 Arthritis due to other bacteria, right knee (principal); K31.811 Angiodysplasia of stomach and duodenum with bleeding; D61.818 Other pancytopenia; K76.6 Portal hypertension; I85.00 Esophageal varices without bleeding; R78.81 Bacteremia; I95.9 Hypotension, unspecified; D62 Acute posthemorrhagic anemia; K70.31 Alcoholic cirrhosis of liver with ascites; E83.39 Other disorders of phosphorus metabolism; G62.9 Polyneuropathy, unspecified; K72.90 Hepatic failure, unspecified without coma; E87.6 Hypokalemia; I10 Essential (primary) hypertension; K21.9 Gastro-esophageal reflux disease without esophagitis; R79.82 Elevated C-reactive protein (CRP); G25.81 Restless legs syndrome; D73.1 Hypersplenism; K31.84 Gastroparesis; M06.9 Rheumatoid arthritis, unspecified; K80.20 Calculus of gallbladder without cholecystitis without obstruction; M17.11 Unilateral primary osteoarthritis, right knee; B96.20 Unspecified Escherichia coli [E. coli] as the cause of diseases classified elsewhere; F10.21 Alcohol dependence, in remission; F12.90 Cannabis use, unspecified, uncomplicated; F32.9 Major depressive disorder, single episode, unspecified; F41.9 Anxiety disorder, unspecified; Z16.23 Resistance to quinolones and fluoroquinolones; Z87.891 Personal history of nicotine dependence; Z96.652 Presence of left artificial knee joint
CPT/HCPCS: 20610; 36430; 49083; 71260; 73560; 74177; 76705; 80048; 80053; 80069; 80074; 80076; 80202; 82140; 82272; 82945; 83605; 83615; 83735; 84155; 84157; 85018; 85025; 85610; 85652; 85730; 86140; 86850; 86900; 86901; 86920; 87015; 87040; 87070; 87077; 87102; 87116; 87186; 87205; 87206; 87389; 89051; 89060; 93005; 93306; 94150; 96365; 96366; 96367; 96375; C1729; G0475; J0131; J0690; J0696; J1580; J1885; J2250; J2270; J3010; J3370; J7030; J7050; J7120; P9016; Q9963; Q9967